=== PATIENT | female | born 1975 | race Hispanic/Latino ===

== ENCOUNTER 2017-08-09 17:08 | Emergency (ER) | payer MEDICARE, MEDICAID ==
[2017-08-09] MEDS: NS 1,000 ML IV (19:34)
[2017-08-09] MEDS: ONDANSETRON 4MG/2ML VIAL (J2405) IV (19:40)
[2017-08-09] MEDS: MORPHINE 4 MG/ML 1ML SYRINGE IV (19:41)
[2017-08-09 19:43] LABS: BASO % 0.5 % (0.0-1.0); EOS # 0.1 10^3/uL (0.0-0.50); EOS % 1.4 % (0.0-3.0); HEMATOCRIT 37.1 % (36.0-47.0); HEMOGLOBIN 12.3 g/dl (12.0-16.0); IMMATURE GRANULOCYTE % 0.2 % (0-0); LYMPH # 2.5 10^3/uL (1.5-4.5); LYMPH % 40.7 % (24.0-44.0); MEAN CORPUSCULAR HEMOGLOBIN 29.1 pg (27.0-33.0); MEAN CORPUSCULAR HGB CONC 33.2 g/dl (32.0-36.5); MEAN CORPUSCULAR VOLUME 87.9 fl (80.0-96.0); MONO # 0.5 10^3/uL (0.0-0.8); MONO % 7.6 % (0.0-5.0); NEUTROPHILS # 3.1 10^3/uL (1.8-7.7); NEUTROPHILS % 49.6 % (36.0-66.0); PLATELET COUNT, AUTOMATED 236 10^3/uL (150-450); RED BLOOD COUNT 4.22 10^6/uL (4.00-5.40); RED CELL DISTRIBUTION WIDTH 12.5 % (11.5-14.5); WHITE BLOOD COUNT 6.2 10^3/uL (4.0-10.0)
[2017-08-09 19:47] LABS: KETONE, URINE AUTO RFX NEGATIVE (NEGATIVE); LEUKOCYTE ESTERASE UR AUTO RFX NEGATIVE (NEGATIVE); MUCUS, URINE RFX SMALL (NEGATIVE); NITRITE, URINE AUTO RFX NEGATIVE (NEGATIVE); RBC, URINE AUTO RFX 1 /HPF (0-3); SQUAM EPITHELIAL CELL UR AURFX 1 /HPF (0-6); WBC, URINE AUTO RFX 0 /HPF (0-3)
[2017-08-09 20:19] LABS: ALBUMIN 4.3 GM/DL (3.2-5.2); ALBUMIN/GLOBULIN RATIO 1.05 (1.00-1.93); ALKALINE PHOSPHATASE 84 U/L (45-117); ALT/SGPT 21 U/L (12-78); ANION GAP 8 MEQ/L (8-16); AST/SGOT 19 U/L (7-37); BILIRUBIN,DIRECT 0.2 MG/DL (0.0-0.2); BILIRUBIN,TOTAL 0.9 MG/DL (0.2-1.0); BLOOD UREA NITROGEN 11 MG/DL (7-18); CALCIUM LEVEL 9.1 MG/DL (8.5-10.1); CARBON DIOXIDE LEVEL 28 MEQ/L (21-32); CHLORIDE LEVEL 105 MEQ/L (98-107); CREATININE FOR GFR 0.61 MG/DL (0.55-1.02); GLOMERULAR FILTRATION RATE > 60.0 (>58); GLUCOSE, FASTING 87 MG/DL (70-105); LIPASE 138 U/L (73-393); POTASSIUM SERUM 3.8 MEQ/L (3.5-5.1); SODIUM LEVEL 141 MEQ/L (136-145); TOTAL PROTEIN 8.4 GM/DL (6.4-8.2)
[2017-08-09] MEDS ORDERED: ISOVUE-370 76% 100ML VIAL (Q9967) As Ordered (20:22)
[2017-08-09] MEDS: BACLOFEN 10 MG TAB PO (21:05)
== END 2017-08-09 21:53 | disposition home or self-care (01) ==
LOC: M ED 17:08
DX: S39.012A Strain of muscle, fascia and tendon of lower back, initial encounter (principal); X58.XXXA Exposure to other specified factors, initial encounter; Y92.89 Other specified places as the place of occurrence of the external cause; Y93.89 Activity, other specified
CPT/HCPCS: J2405

== ENCOUNTER → 2017-08-16 | Outpatient (REF) | payer MEDICARE, MEDICAID ==
[2017-08-16 15:40] LABS: BASO % 0.5 % (0.0-1.0); EOS # 0.2 10^3/uL (0.0-0.50); EOS % 2.9 % (0.0-3.0); HEMATOCRIT 38.1 % (36.0-47.0); HEMOGLOBIN 12.6 g/dl (12.0-16.0); IMMATURE GRANULOCYTE % 0.2 % (0-0); LYMPH # 2.2 10^3/uL (1.5-4.5); LYMPH % 34.1 % (24.0-44.0); MEAN CORPUSCULAR HEMOGLOBIN 29.7 pg (27.0-33.0); MEAN CORPUSCULAR HGB CONC 33.1 g/dl (32.0-36.5); MEAN CORPUSCULAR VOLUME 89.9 fl (80.0-96.0); MONO # 0.5 10^3/uL (0.0-0.8); MONO % 7.1 % (0.0-5.0); NEUTROPHILS # 3.6 10^3/uL (1.8-7.7); NEUTROPHILS % 55.2 % (36.0-66.0); PLATELET COUNT, AUTOMATED 207 10^3/uL (150-450); RED BLOOD COUNT 4.24 10^6/uL (4.00-5.40); RED CELL DISTRIBUTION WIDTH 12.8 % (11.5-14.5); WHITE BLOOD COUNT 6.5 10^3/uL (4.0-10.0)
[2017-08-16 15:51] LABS: ALBUMIN 3.9 GM/DL (3.2-5.2); ALBUMIN/GLOBULIN RATIO 1.22 (1.00-1.93); ALKALINE PHOSPHATASE 67 U/L (45-117); ALT/SGPT 19 U/L (12-78); ANION GAP 7 MEQ/L (8-16); AST/SGOT 15 U/L (7-37); BILIRUBIN,TOTAL 0.7 MG/DL (0.2-1.0); BLOOD UREA NITROGEN 10 MG/DL (7-18); CALCIUM LEVEL 8.7 MG/DL (8.5-10.1); CARBON DIOXIDE LEVEL 30 MEQ/L (21-32); CHLORIDE LEVEL 106 MEQ/L (98-107); CPK CREATINE PHOSPHOKINASE 115 U/L (26-192); CREATININE FOR GFR 0.59 MG/DL (0.55-1.02); GLOMERULAR FILTRATION RATE > 60.0 (>58); GLUCOSE, FASTING 83 MG/DL (70-105); POTASSIUM SERUM 3.6 MEQ/L (3.5-5.1); RHEUMATOID FACTOR QUANT < 10.0 IU/ML (0-15.0); SODIUM LEVEL 143 MEQ/L (136-145); TOTAL PROTEIN 7.1 GM/DL (6.4-8.2)
[2017-08-16 15:57] LABS: VITAMIN B12 LEVEL 524 PG/ML (247-911)
[2017-08-16 15:58] LABS: FOLATE 18.5 NG/ML (>5.4)
[2017-08-16 16:17] LABS: ERYTHROCYTE SEDIMENTATION RATE 9 mm/hr (0-20)
[2017-08-19 00:06] LABS: ANTINUCLEAR ANTIBODIES DIRECT Negative (Negative); Lyme Disease IgG/IgM Antibodie <0.91 ISR (0.00-0.90); Lyme Disease IgM Ab Quantitati <0.80 index (0.00-0.79)
[2017-08-19 11:09] LABS: ALBUMIN % 57.7 % (55.8-66.1); ALPHA-1-GLOBULIN % 4.2 % (2.9-4.9); ALPHA-2-GLOBULINS 0.69 GM/DL (0.42-0.99); ALPHA-2-GLOBULINS % 9.7 % (7.1-11.8); BETA-1-GLOBULINS 0.44 GM/DL (0.28-0.60); BETA-1-GLOBULINS % 6.2 % (4.7-7.2); BETA-2-GLOBULINS % 5.6 % (3.2-6.5); GAMMA GLOBULIN % 16.6 % (11.1-18.8); GAMMA GLOBULINS 1.18 GM/DL (0.65-1.58)
== END ==
LOC: M LABDRAW1 14:40
DX: M54.2 Cervicalgia (principal)
CPT/HCPCS: 82550

== ENCOUNTER → 2017-10-25 | Outpatient (CLI) | payer MEDICARE, MEDICAID | LOC: M WHC 10:36 | DX: Z12.31 Encounter for screening mammogram for malignant neoplasm of breast (principal); Z80.3 Family history of malignant neoplasm of breast; Z12.72 Encounter for screening for malignant neoplasm of vagina; R87.5 Abnormal microbiological findings in specimens from female genital organs | CPT/HCPCS: 77067; G0123 ==

== ENCOUNTER → 2017-10-25 | Outpatient (REF) | payer MEDICARE, MEDICAID | LOC: M SFHCWAGY 10:54 | DX: Z12.72 Encounter for screening for malignant neoplasm of vagina (principal); R87.5 Abnormal microbiological findings in specimens from female genital organs | CPT/HCPCS: G0123 ==

== ENCOUNTER → 2018-04-11 | Outpatient (REF) | payer MEDICARE, MEDICAID ==
[2018-04-11 11:14] LABS: PLATELET COUNT, AUTOMATED 225 10^3/uL (150-450)
[2018-04-11 11:35] LABS: INR 0.87; PROTHROMBIN TIME 11.9 SECONDS (12.1-14.4)
[2018-04-11 11:36] LABS: PARTIAL THROMBOPLASTIN TIME 26.8 SECONDS (25.4-37.6)
== END ==
LOC: M LABDRAW1 10:28
DX: M54.5 Low back pain (principal); Z01.812 Encounter for preprocedural laboratory examination
CPT/HCPCS: 85049

== ENCOUNTER 2018-08-05 13:51 | Emergency (ER) | payer MEDICARE, MEDICAID ==
[~2018-08-05] VITALS: Ht 152.4 cm; Wt 79.1 kg
[~2018-08-05 13:51] MED LIST: BACL10TA2 PO; GABA600T4; PERC5TAB12 PO; TIZA4CAP
[2018-08-05] MEDS ORDERED: [UNRECOGNIZED DRUG - CODE] (14:03)
[2018-08-05] MEDS ORDERED: TIZANIDINE (14:03)
[2018-08-05] MEDS ORDERED: DULO1CAP2 (14:03)
[2018-08-05] MEDS ORDERED: GABA800T4 PO (14:03)
[2018-08-05] MEDS ORDERED: ONDANSETRON 4MG/2ML VIAL (J2405) IV ONE (15:15)
[2018-08-05] MEDS ORDERED: MORPHINE 4 MG/ML 1ML VIAL/SYRINGE (J2270) IV ONE (15:15)
[2018-08-05] MEDS ORDERED: NS 1,000 ML IV ONE (15:15)
--- NOTE | 2018-08-05 15:28 | REP ---
CT Head without contrast HISTORY: Headache COMPARISON: None The patient is status post midline suboccipital craniectomy. There is no intraparenchymal hemorrhage, acute infarct, mass or midline shift. The ventricular system is normal in appearance. There is no extra cerebral collection. There is no fracture. 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 The visualized sinuses are clear. IMPRESSION: There is no intracranial lesion. Electronically Signed by Taiwo Martin MD 08/05/2018 03:20 P
[2018-08-05 15:36] LABS: BASO # 0.1 10^3/uL (0.0-0.2); BASO % 0.6 % (0.0-1.0); EOS # 0.1 10^3/uL (0.0-0.50); EOS % 1.1 % (0.0-3.0); HEMATOCRIT 40.3 % (36.0-47.0); HEMOGLOBIN 13.6 g/dl (12.0-15.5); LYMPH # 2.3 10^3/uL (1.5-4.5); LYMPH % 27.4 % (24.0-44.0); MEAN CORPUSCULAR HEMOGLOBIN 30.6 pg (27.0-33.0); MEAN CORPUSCULAR HGB CONC 33.7 g/dl (32.0-36.5); MEAN CORPUSCULAR VOLUME 90.6 fl (80.0-96.0); MONO # 0.5 10^3/uL (0.0-0.8); MONO % 5.6 % (0.0-5.0); NEUTROPHILS # 5.4 10^3/uL (1.8-7.7); NEUTROPHILS % 64.9 % (36.0-66.0); PLATELET COUNT, AUTOMATED 267 10^3/uL (150-450); RED BLOOD COUNT 4.45 10^6/uL (4.00-5.40); WHITE BLOOD COUNT 8.4 10^3/uL (4.0-10.0)
[2018-08-05 16:03] LABS: ALBUMIN 4.4 GM/DL (3.2-5.2); ALT/SGPT 30 U/L (12-78); BILIRUBIN,TOTAL 0.6 MG/DL (0.2-1.0); BLOOD UREA NITROGEN 14 MG/DL (7-18); CALCIUM LEVEL 9.1 MG/DL (8.5-10.1); CARBON DIOXIDE LEVEL 23 MEQ/L (21-32); CHLORIDE LEVEL 106 MEQ/L (98-107); GLOMERULAR FILTRATION RATE > 60.0 (>58); GLUCOSE, FASTING 96 MG/DL (70-100); SODIUM LEVEL 139 MEQ/L (136-145); TOTAL PROTEIN 7.9 GM/DL (6.4-8.2)
[2018-08-05] MEDS ORDERED: diphenhydrAMINE INJ 50MG/ML VIAL (J1200) IV STA (16:22)
[2018-08-05] MEDS ORDERED: methylPREDNISolone INJ 125 MG/2 ML VIAL (J2930) IV ONE (16:30)
[2018-08-05] MEDS ORDERED: ERYTHROMYCIN OPHTH OINT OD ONE (16:30)
[2018-08-05] MEDS ORDERED: PRED20TA PO (17:20)
[2018-08-05] MEDS ORDERED: ERYTOIN8 OD (17:26)
[2018-08-05 17:27] VITALS: BP 158/94
== END 2018-08-05 17:35 | disposition home or self-care (01) ==
LOC: M ED 13:51
DX: R51 Headache (principal); H57.89 Other specified disorders of eye and adnexa; M54.9 Dorsalgia, unspecified; Z79.899 Other long term (current) drug therapy
CPT/HCPCS: 70450; 80053; 85025; 96361; 96374; 96375; 99284; J1200; J2270; J2405; J2930

== ENCOUNTER → 2019-06-04 | Outpatient (CLI) | payer MEDICARE, MEDICAID ==
[~2019-06-04] MED LIST changes: +DULO1CAP5; +ERYTOIN8 OD; +GABA800T4 PO; +PRED20TA PO; +TIZANIDINE; +[UNRECOGNIZED DRUG - CODE]
--- NOTE | 2019-06-20 01:14 | ECWPNPC ---
PATIENT NAME: DALIA JIMENEZ : 1975 GENDER: FEMALE VISIT DATE: 06/04/2019 DISCHARGE DATE: 06/04/19 1516 VISIT LOCKED DATE TIME: PHYSICIAN: TC CHUN RESOURCE: TC CHUN REASON FOR APPOINTMENT 1. BACK PAIN AND LUMBAR SPINE DISC DISEASE HISTORY OF PRESENT ILLNESS PAIN SCREENIN43 Y/O FEMALE REFERRED BY DR BAH TO EVALUATE CHRONIC NECK AND LOW BACK PAIN.CHIEF AREA OF PAIN IS RIGHT LOW BACK.DESCRIBES AN INTERMITTENT CRAMPING ACROSS LOW BACK.HAS COMPLAINTS OF GENERALIZED BACK PAIN.RATING PAIN VAS 8/10.REALLY NOT INTERESTED IN INJECTION THERAPY.HAS HAD IT IN THE PAST.DOES NOT HAVE A PRIMARY CARE PROVIDER. PATIENT HAS A COMPLAINT OF ACUTE OR CHRONIC PAIN :YES FALL RISK SCREENING: SCREENING :NO FALLS REPORTED IN THE LAST YEAR CURRENT MEDICATIONS TAKING CELEXA 20 MG TABLET 1 TABLET ORALLY ONCE A DAY TAKING IBUPROFEN 800 MG TABLET 1 TABLET WITH FOOD OR MILK NEEDED ORALLY THREE TIMES A DAY TAKING GABAPENTIN 800 MG TABLET 1 TABLET ORALLY TID, NOTES: 1200 MG TID TAKING ZANAFLEX 4 MG TABLET 1 TO 2 TABS ORALLY AT BEDTIME NEEDED TAKING INDOMETHACIN ER 75 MG CAPSULE EXTENDED RELEASE 1 CAPSULE WITH FOOD OR MILK ORALLY ONCE A DAY NEEDED FOR MIGRAINES TAKING MIGRANAL 4 MG/ML SOLUTION NASALLY DAILY NEEDED TAKING BOTOX 200 UNIT SOLUTION RECONSTITUTED INJECTION NOT-TAKING NEURONTIN 800 MG TABLET 1 TABLET ORALLY FOUR TIMES DAILY NOT-TAKING TRAMADOL HCL 50 MG TABLET 1 TABLET NEEDED ORALLY EVERY 4 HOURS NEEDED NOT-TAKING NERVE BLOCK TRAY NOT-TAKING VITAMIN C 500 MG CAPSULE ORALLY , NOTES: OCC MEDICATION LIST REVIEWED AND RECONCILED WITH THE PATIENT PAST MEDICAL HISTORY MIGRAINES ARNOLD CHIARI MALFORMATION SEES NEURO ACL INJURY AND FX TIBIA 2018 4TH AND 5TH DIGITS LEFT HAND CRUSHING INJURY ANXIETY CHRONIC NECK & BACK PAIN LEFT ELBOW FRACTURE ALLERGIES N.K.D.A. SURGICAL HISTORY ARNOLD CHIARI DECOMPRESSION ORIF HAND SURGERY AFTER CRUSH INJURY TUBAL LIGATION HYSTERECTOMY LEFT KNEE SURGERY FAMILY HISTORY FATHER: ALIVE MOTHER: ALIVE, DIAGNOSED WITH HYPERTENSION SIBLINGS: ALIVE, HYPERTENSION 1 BROTHER(S) . 5DAUGHTER(S) - HEALTHY. MOTHER - ASTHMA1 DAUGHTER - BIPOLAR DEPRESSION. SOCIAL HISTORY GENERAL: TOBACCO USE ARE YOU A:NONSMOKER OTHERS AT HOME: 2 DAUGHTERS. HOUSING: RENTS HOUSE. EDUCATION LEVEL OF EDUCATION:HIGH SCHOOL DIET: REGULAR. LANGUAGE LANGUAGES SPOKEN:GIBRALTARIAN RECREATIONAL DRUG USE DRUG USE?NO EXERCISE: GOES TO GYM FAIRLY REGULARLY. LEARNING BARRIERS / SPECIAL NEEDS CHANGE FROM LAST VISIT?NO BARRIERS TO LEARNING?NO HEARING IMPAIRED?NO VISION IMPAIRED?YES :CORRECTIVE LENSES COGNITIVELY IMPAIRED?NO READINESS TO LEARN?YES LEARNING PREFERENCES?NO LEARNING CAPABILITIES PRESENT?YES EMOTIONAL BARRIERS?NO SPECIAL DEVICES?NO PRIVATE TUTORS AND TEACHERS NEEDED?NO PAIN CLINIC PFS, CLERGY, PUBLIC HEALTH REFERRALS HAS THE PATIENT BEEN EDUCATED REGARDING HIS/HER PLAN OF CARE?YES HAS THE PATIENT BEEN EDUCATED REGARDING PAIN, THE RISK FOR PAIN, THE IMPORTANCE OF EFFECTIVE PAIN MANAGEMENT, AND THE PAIN ASSESSMENT PROCESS?YES LATEX QUESTIONNAIRE LATEX ALLERGY : HAVE YOU EVER DEVELOPED ANY TYPE OF REACTION AFTER HANDLING LATEX PRODUCTS SUCH RUBBER GLOVES, CONDOMS, DIAPHRAGMS, BALLOONS, SOCKS, OR UNDERWEAR?NO LATEX ALLERGY : HAVE YOU EVER DEVELOPED ANY TYPE OF REACTION DURING OR AFTER DENTAL APPOINTMENT, VAGINAL/RECTAL EXAMINATION, SURGICAL PROCEDURE, OR ANY OTHER EXPOSURE?NO LATEX RISK : HAVE YOU EVER HAD ANY DIFFICULTY BREATHING OR HIVES AFTER EATING OR HANDLING ANY FRUITS, OR VEGETABLES; SUCH KIWI, BANANAS, STONE FRUITS, OR CHESTNUTSNO LATEX RISK : DO YOU HAVE A PREVIOUS PERSONAL HISTORY OF MORE THAN NINE SURGERIES, SPINA BIFIDA, OR REPEATED CATHERIZATIONS? NO LATEX RISK : ARE YOU FREQUENTLY EXPOSED TO LATEX PRODUCTS IN YOUR OCCUPATION?NO DATE ASKED : 06/04/2019 CAFFEINE CAFFEINE USE?YES COFFEE DAILY ADVANCE DIRECTIVE ADVANCE DIRECTIVE DISCUSSED WITH PATIENT:YES PATIENT HAS NO ADVANCED DIRECTIVES AND DECLINES INFORMATIN ON HCP AT THIS TIME. MARITAL STATUS: SINGLE. ALCOHOL SCREENING DID YOU HAVE A DRINK CONTAINING ALCOHOL IN THE PAST YEAR?NO POINTS0 INTERPRETATIONNEGATIVE REVIEWED WITH PATIENT 06/04/19 1417 JS. HOSPITALIZATION/MAJOR DIAGNOSTIC PROCEDURE SURGERY RELATED REVIEW OF SYSTEMS REVIEWED BY: PROVIDER: TC WHITE . CONSTITUTIONAL: ANY CHANGE IN YOUR MEDICAL CONDITION? NO . CHILLS NO . FEVER NO . INFECTION: DO YOU HAVE NEW INFECTIONS? NO . DO YOU HAVE HISTORY OF MRSA? NO . MUSCULOSKELETAL: ANY NEW PATTERNS OF PAIN OR NUMBNESS? YES, STATES PAIN IS SPREADING AND HAS BEEN WORSENING . SYTEMIC LUPUS NO . GASTROENTEROLOGY: ANY NEW CHANGE IN BOWEL CONTROL? NO . BARRETTS ESOPHAGUS NO . CIRRHOSIS NO . HEPATITIS NO . LIVER FAILURE NO . ACID REFLUX NO . UNEXPLAINED WEIGHT LOSS NO . GENITOURINARY: ANY NEW CHANGE IN BLADDER CONTROL? YES, STATES OCCASSIONAL STRESS INCONTINENCE . IS THERE A CHANCE YOU COULD BE ? NO . HEMATOLOGY/LYMPH: DO YOU TAKE ANY BLOOD THINNERS? (FOR EXAMPLE- COUMADIN, PLAVIX, AGGRENOX, PLATEL, PRADAXA, OR XARELTO) NO . WHEN WAS YOUR LAST DOSE? DATE: TIME: . LOW PLATELET COUNT NO . SICKLE CELL DISEASE NO . VON WILLIEBRANDS NO . FACTOR V LEIDEN NO . THALLASEMIA NO . ANEMIA NO . EASY BRUISING SPONTANEOUS . NEUROLOGY: HAVE YOU FALLEN IN THE PAST 12 MONTHS? NO . ANY NEW EXTREMITY NUMBNESS OR WEAKNESS? NO . HEAD INJURY NO . DEMENTIA NO . CEREBRAL PALSY NO . MULTIPLE SCLEROSIS NO . DIZZINESS INTERMITTENT, SENSATION OF ROOM SPINNING, STATES BEFORE MIGRAINES . HEADACHE ADMITS, FREQUENT , ASSOCIATED WITH NAUSEA, ASSOCIATED WITH PHOTOPHOBIA . STROKES NO . VERTIGO NO . CARDIOLOGY: DO YOU HAVE A PACEMAKER OR DEFIBRILLATOR? NO . ANGINA NO . HEART ATTACK NO . HEART SURGERY NO . CONGESTIVE HEART FAILURE/FLUID OVERLOAD NO . CHEST PAIN NO . HIGH BLOOD PRESSURE NO . IRREGULAR HEART BEAT NO . RESPIRATORY: HAVE YOU BEEN SICK IN THE PAST WEEK? NO . FEVER NO . FLU LIKE SYMPTOMS? NO . CPAP NO . BYPAP NO . ASTHMA NO . EMPHYSEMA NO . CHRONIC LUNG DISEASES NO . SHORTNESS OF BREATH ON EXERTION NO . COUGH NO . SNORING NO . INTEGUMENTARY: DO YOU HAVE ANY RASHES OR OPEN SORES? NO . ALLERGIC/IMMUNO: ARE YOU ALLERGIC TO IV DYE? NO . ANY NEW ALLERGIES? NO . PSYCHIATRIC: DO YOU HAVE THOUGHTS OF HURTING YOURSELF OR SOMEONE ELSE? NO . ARE YOU ABUSED, NEGLECTED, OR IN AN UNSAFE ENVIRONMENT? NO . ENDOCRINOLOGY: ARE YOU DIABETIC? NO . THYROID DISORDER NO . OTHER: DO YOU NEED ANY PRESCRIPTIONS? YES, WOULD LIKE SOMETHING FOR PAIN . IF YES, PLEASE LIST: ____ . ANY NEW PROBLEMS WITH YOUR MEDICATIONS? NO . WHEN DID YOU LAST EAT? ____ . WHEN DID YOU LAST DRINK? ____ . WHAT DID YOU LAST DRINK? ____ . NAME OF PERSON DRIVING YOU HOME? ____ . DO YOU HAVE ANY OTHER QUESTIONS OR CONCERNS NO . VITAL SIGNS WT 195.2 LBS, HT 64 IN, BMI 33.50 INDEX, BP 140/83 MM HG, HR 81 /MIN, RR 18 /MIN, TEMP 96.7 F, OXYGEN SAT % 99%, SAFE IN ENV? (Y/N) YES, NA INITIALS VT 13:52, REVIEWED BY: SIVAKUMAR. EXAMINATION GENERAL EXAMINATION: GENERAL AWAKE,ALERT ,PLEASANT . PSYCH AFFECT NORMAL . NECK: TRACHEA MIDLINE. NO CERVICAL OR SUPRACLAVICULAR LYMPHADENOPATHY NOTED. LUNGS: LUNG SR ARE CLEAR TO AUSCULTATION BILATERALLY. GOOD MOVEMENT OF AIR . HEART: S1, S2 IN A REGULAR RATE AND RHYTHM. NO SIGNIFICANT MURMURS, RUBS OR GALLOPS NOTED . ABDOMEN: SOFT/NONTENDER. MUSCULOSKELETAL: MUSCLE STRENGTH TESTING 5/5 BILATERAL UPPER/LOWER EXTREMITIES. LUMBAR SACRAL SPINE PALPATION: + FOR PAIN OVER L/S SPINE. +FOR PAIN OVER L/S PARASPINALS. SPECIFIC RIGHT SIJ TENDERNESS. CERVICAL NEGATIVE FOR PAIN WITH PALPATION OF CERVICAL SPINE. NEGATIVE FOR PAIN WITH PALPATION OF CERVICAL PARASPINALS. NEGATIVE FOR PAIN WITH PALPATION OF TRAPEZIUS BILAT. SKIN: NO RASH OR SKIN LESIONS. NEUROLOGIC EXAM: CN'S NORMAL TESTED , DTRS 1-2+ IN ALL 4 EXTREMITIES. DIAGNOSTIC TESTS REVIEWED MRI L/S SPINE-04/2019 MRI C-SPINE-04/2019. MULTIPLE AREAS OF TENDER SPOTS OVER THORACIC AND LUMBAR PARASPINALS INDICATIVE OF FIBROMYALGIA. ASSESSMENTS SACROILIITIS - M46.1 (PRIMARY) TREATMENT SACROILIITIS NOTES: DISCUSSED PT AND SACROILLIAC JOINT INJECTIONS.ALSO DISCUSSED [facility] [facility].SHE WILL MAKE APPOINTMENT WITH PRIMARY CARE AND DISCUSS THESE OPTIONS.SHE REALLY IS NOT INTERSETED IN INJECTION THERAPY TO TREAT HER PAIN AT THIS TIME BUT IS ENCOURAGED TO CALL FOR A F/U APPOINTMENT IF SHE CHANGES HER MIND REGARDING INJECTIONS. PROCEDURE CODES FA211 ESTABILISHED PATIENT [facility] CHARGE DISPOSITION & COMMUNICATION FOLLOW UP NO F/U NECESSARY ELECTRONICALLY SIGNED BY CINDY AYON ON 06/19/2019 AT 08:46 AM EST DISCLAIMER : THIS IS A VISIT SUMMARY EXTRACTED FROM THE [employer] CHART. IT IS NOT A COPY OF THE [employer] PROGRESS NOTE. ROHIT
== END ==
LOC: M PAIN 13:30
PROVIDERS: ATTEND Nurse Practitioner Family
DX: M46.1 Sacroiliitis, not elsewhere classified (principal); G89.29 Other chronic pain; G43.909 Migraine, unspecified, not intractable, without status migrainosus; Z86.59 Personal history of other mental and behavioral disorders; Z79.899 Other long term (current) drug therapy

== ENCOUNTER 2019-08-25 19:18 | Emergency (ER) | payer MEDICARE, MEDICAID ==
[~2019-08-25] VITALS: Ht 162.6 cm; Wt 90.3 kg
[2019-08-25] MEDS ORDERED: TIZA4TAB4 PO (19:32)
[2019-08-25] MEDS ORDERED: PROP10TA56 PO (19:32)
[2019-08-25] MEDS ORDERED: CITA20TA6 PO (19:32)
[2019-08-25] MEDS ORDERED: INDO75CA PO (19:32)
[2019-08-25 20:23] LABS: BASO # 0.1 10^3/uL (0.0-0.2); BASO % 0.5 % (0.0-1.0); EOS # 0.1 10^3/uL (0.0-0.5); EOS % 1.1 % (0.0-3.0); HEMATOCRIT 42.7 % (36.0-47.0); HEMOGLOBIN 14.2 g/dl (12.0-15.5); LYMPH # 3.2 10^3/uL (1.5-5.0); LYMPH % 28.9 % (24.0-44.0); MEAN CORPUSCULAR HEMOGLOBIN 29.6 pg (27.0-33.0); MEAN CORPUSCULAR HGB CONC 33.3 g/dl (32.0-36.5); MONO # 0.9 10^3/uL (0.0-0.8); MONO % 8.2 % (0.0-5.0); NEUTROPHILS # 6.7 10^3/uL (1.5-8.5); NEUTROPHILS % 60.8 % (36.0-66.0); PLATELET COUNT, AUTOMATED 255 10^3/uL (150-450); WHITE BLOOD COUNT 11.1 10^3/uL (4.0-10.0)
[2019-08-25 20:32] LABS: BLOOD UREA NITROGEN 14 MG/DL (7-18); CALCIUM LEVEL 8.3 MG/DL (8.5-10.1); CARBON DIOXIDE LEVEL 24 MEQ/L (21-32); CHLORIDE LEVEL 110 MEQ/L (98-107); CK-MB VALUE MASS 1.4 NG/ML (<3.6); CPK CREATINE PHOSPHOKINASE 87 U/L (26-192); CREATININE FOR GFR 0.52 MG/DL (0.55-1.30); GLOMERULAR FILTRATION RATE > 60.0 (>58); GLUCOSE, FASTING 103 MG/DL (70-100); MB/CK RELATIVE INDEX 1.61 (< OR =4); POTASSIUM SERUM 3.1 MEQ/L (3.5-5.1); SODIUM LEVEL 140 MEQ/L (136-145); TROPONIN I < 0.02 NG/ML (< 0.10)
[2019-08-25] MEDS ORDERED: PANTOPRAZOLE 40MG INJ (PROTONIX) (C9113) IV ONE (21:45)
[2019-08-25] MEDS ORDERED: POTASSIUM CHLORIDE 10 MEQ SR TABLET PO ONE (21:45)
[2019-08-26 00:49] LABS: CK-MB VALUE MASS 1.2 NG/ML (<3.6); CPK CREATINE PHOSPHOKINASE 87 U/L (26-192); MB/CK RELATIVE INDEX 1.38 (< OR =4); TROPONIN I < 0.02 NG/ML (< 0.10)
[2019-08-26] MEDS ORDERED: PROT1TAB2 PO (01:19)
[2019-08-26 01:33] VITALS: BP 121/80
--- NOTE | 2019-08-26 06:31 | ECGEPIP ---
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
--- NOTE | 2019-08-26 06:37 | ECGEPIP ---
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
--- NOTE | 2019-08-26 09:27 | REP ---
AP PORTABLE CHEST: 08/25/2019. Clinical history: Chest pain. Findings: No prior studies. The lungs are well inflated and without infiltrate, effusion, atelectasis or mass. CP angles sharply defined as are the diaphragms. No pneumothorax. The heart, mediastinal and hilar contours are normal. Lung coleman are clear. Aorta and airway are intact. Bony thorax without acute finding. No free air under the diaphragm. Impression: 1. Negative AP portable chest. Electronically Signed by Nilesh Cross MD 08/26/2019 08:17 P
--- NOTE | 2019-08-30 00:41 | ECGEPIP ---
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
== END 2019-08-26 01:37 | disposition home or self-care (01) ==
LOC: M ED 19:18
DX: R07.9 Chest pain, unspecified (principal); Z79.899 Other long term (current) drug therapy
CPT/HCPCS: 71045; 80048; 82550; 82553; 84484; 85025; 93005; 93041; 94760; 96374; 99285; C9113

== ENCOUNTER → 2019-09-26 | Outpatient (REF) | payer MEDICARE, MEDICAID ==
[~2019-09-26] MED LIST changes: +CITA20TA6 PO; +INDO75CA PO; +PROP10TA56 PO; +PROT1TAB2 PO; +TIZA4TAB4 PO
[2019-09-26 13:34] LABS: APPEARANCE, URINE HAZY (CLEAR); BACTERIA, URINE AUTO NEGATIVE (NEGATIVE); BILIRUBIN, URINE AUTO NEGATIVE (NEGATIVE); BLOOD, URINE BLOOD NEGATIVE (NEGATIVE); COLOR, URINE YELLOW (YELLOW); GLUCOSE, URINE (UA) AUTO NEGATIVE (NEGATIVE); KETONE, URINE AUTO NEGATIVE (NEGATIVE); LEUKOCYTE ESTERASE, URINE AUTO NEGATIVE (NEGATIVE); NITRITE, URINE AUTO NEGATIVE (NEGATIVE); PROTEIN, URINE AUTO NEGATIVE (NEGATIVE); RBC, URINE AUTO 0 /HPF (0-3); SPECIFIC GRAVITY URINE AUTO 1.008 (1.002-1.035); SQUAMOUS EPITHELIAL CELL UR AU 3 /HPF (0-6); UROBILINOGEN, URINE AUTO 0.2 mg/dL (0.0-2.0); WBC, URINE AUTO 1 /HPF (0-3)
== END ==
LOC: M LAB REF 12:28
PROVIDERS: ATTEND Physician Assistant
DX: N39.0 Urinary tract infection, site not specified (principal)

== ENCOUNTER → 2019-09-27 | Outpatient (CLI) | payer MEDICARE, MEDICAID ==
--- NOTE | 2019-09-27 16:56 | REP ---
Supine abdomen single AP view: Comparison is the abdomen/pelvis CT dated 08/09/2017. The bowel gas pattern is normal. There are no renal or ureteral calcifications. There are too two tiny calcifications inferiorly in the pelvis on the left from the comparison CT. These are phleboliths. The skeletal structures and soft tissues are otherwise unremarkable. Impression: There are two pelvic calcifications inferiorly on the left than on the comparison CT. These are phleboliths. No other calcifications are identified. The bowel gas pattern is normal. Electronically Signed by Benigno Harris MD 09/27/2019 04:48 P
== END ==
LOC: M RAD 16:20
PROVIDERS: ATTEND Physician Assistant
DX: N20.1 Calculus of ureter (principal); N23 Unspecified renal colic

== ENCOUNTER 2020-01-12 18:20 | Emergency (ER) | payer MEDICARE, MEDICAID ==
[~2020-01-12] VITALS: Ht 162.6 cm; Wt 88.2 kg
[2020-01-12 19:42] VITALS: BP 117/75
--- NOTE | 2020-01-13 09:53 | REP ---
Four views left ankle: 01/12/2020. Indication: Left ankle pain following injury. Comparison: None. Findings: There is no acute fracture, subluxation or dislocation. Soft tissue edema is noted overlying the distal left fibula. No lytic or blastic lesions are present. Impression: No acute fracture. Electronically Signed by Lawson Cordon DO 01/13/2020 09:45 A
== END 2020-01-12 19:43 | disposition home or self-care (01) ==
LOC: M ED 18:20
DX: S93.402A Sprain of unspecified ligament of left ankle, initial encounter (principal); X50.9XXA Other and unspecified overexertion or strenuous movements or postures, initial encounter; Y92.018 Other place in single-family (private) house as the place of occurrence of the external cause; Z79.899 Other long term (current) drug therapy; Z87.891 Personal history of nicotine dependence

== ENCOUNTER → 2020-03-18 | Outpatient (CLI) | payer MEDICARE, MEDICAID ==
[~2020-03-18] MED LIST changes: -INDO75CA PO; +INDO75CA10 PO
--- NOTE | 2020-04-25 13:32 | REP ---
RIGHT FIFTH FINGER SERIES: 4-VIEWS HISTORY: Hyperextension injury right small finger. FINDINGS: Five views of the right small finger demonstrate normal bones, joints, and soft tissues. No fracture or subluxation seen. IMPRESSION: No fracture noted. MTDD
== END ==
LOC: M WUC 16:46
PROVIDERS: ATTEND Nurse Practitioner Family
DX: M79.644 Pain in right finger(s) (principal)

== ENCOUNTER → 2020-06-24 | Outpatient (CLI) | payer MEDICARE, MEDICAID | LOC: M LABSMTC 11:55 | PROVIDERS: ATTEND Family Medicine | DX: Z11.59 Encounter for screening for other viral diseases (principal) ==

== ENCOUNTER 2020-07-11 15:35 | Emergency (ER) | payer MEDICARE, MEDICAID ==
[~2020-07-11] VITALS: Ht 162.6 cm; Wt 89.6 kg
[2020-07-11 15:37] VITALS: BP 135/81
[2020-07-11] MEDS ORDERED: TOPI50TA9 (15:47)
[2020-07-11] MEDS ORDERED: MIGR4SPR NARES (15:47)
[2020-07-11] MEDS ORDERED: NS 1,000 ML IV SCH (16:09)
[2020-07-11] MEDS ORDERED: METOCLOPRAMIDE INJ 10MG/2ML VIAL (J2765 PER 1) IV ONE (16:15)
[2020-07-11 17:13] LABS: BASO % 0.3 % (0.0-1.0); EOS # 0.2 10^3/uL (0.0-0.5); EOS % 2.3 % (0.0-3.0); HEMATOCRIT 42.1 % (36.0-47.0); HEMOGLOBIN 13.6 g/dl (12.0-15.5); LYMPH # 2.2 10^3/uL (1.5-5.0); LYMPH % 31.5 % (24.0-44.0); MEAN CORPUSCULAR HEMOGLOBIN 29.6 pg (27.0-33.0); MEAN CORPUSCULAR HGB CONC 32.3 g/dl (32.0-36.5); MEAN CORPUSCULAR VOLUME 91.5 fl (80.0-96.0); MONO # 0.5 10^3/uL (0.0-0.8); MONO % 7.2 % (0.0-5.0); NEUTROPHILS # 4.1 10^3/uL (1.5-8.5); NEUTROPHILS % 58.4 % (36.0-66.0); PLATELET COUNT, AUTOMATED 205 10^3/uL (150-450)
[2020-07-11 17:24] LABS: BLOOD UREA NITROGEN 9 MG/DL (7-18); CALCIUM LEVEL 8.4 MG/DL (8.5-10.1); CARBON DIOXIDE LEVEL 27 MEQ/L (21-32); CHLORIDE LEVEL 109 MEQ/L (98-107); GLOMERULAR FILTRATION RATE > 60.0 (>58); GLUCOSE, FASTING 115 MG/DL (70-100); POTASSIUM SERUM 3.4 MEQ/L (3.5-5.1); SODIUM LEVEL 140 MEQ/L (136-145)
[2020-07-11 17:28] LABS: HCG, SERUM QUALITATIVE NEGATIVE (NEGATIVE)
--- NOTE | 2020-07-11 17:56 | REPVR ---
PROCEDURE INFORMATION: Exam: CT Head Without Contrast Exam date and time: 07/11/2020 5:34 PM Age: 44 years old Clinical indication: Pain; Headache not specified; Additional info: Headache, vomiting TECHNIQUE: Imaging protocol: Computed tomography of the head without contrast. Radiation optimization: All CT scans at this facility use at least one of these dose optimization techniques: automated exposure control; mA and/or kV adjustment per patient size (includes targeted exams where dose is matched to clinical indication); or iterative reconstruction. COMPARISON: CT Head without contrast 08/05/2018 3:04 PM FINDINGS: Brain: No CT evidence of acute intracranial hemorrhage or acute territorial infarction. No significant mass effect or midline shift. Basal cisterns patent. Cerebral ventricles: Normal in size and configuration. Bones/joints: No acute osseous abnormality. Paranasal sinuses: Unremarkable. No fluid levels. Mastoid air cells: Grossly unremarkable. Soft tissues: Grossly unremarkable. IMPRESSION: No CT evidence of acute intracranial pathology. Electronically signed by: Adriano Gramajo On 07/11/2020 17:55:50 PM
[2020-07-11] MEDS ORDERED: POTASSIUM CHLORIDE 10 MEQ SR TABLET PO ONE (19:00)
== END 2020-07-11 19:37 | disposition home or self-care (01) ==
LOC: M ED 15:35
DX: R51.9 Headache, unspecified (principal); I10 Essential (primary) hypertension; Q07.00 Arnold-Chiari syndrome without spina bifida or hydrocephalus; Z79.899 Other long term (current) drug therapy
CPT/HCPCS: 70450; 80048; 84703; 85025; 96361; 96374; 99284; J2765

== ENCOUNTER 2020-08-27 09:16 | Outpatient (CLI) | payer MEDICARE, MEDICAID ==
[~2020-08-27] VITALS: Ht 162.6 cm; Wt 88.1 kg
[~2020-08-27 09:16] MED LIST changes: +MAG SULF 1GM/100ML (MAG RUN) SINGLE DOSE IV ONE; +MIGR4SPR NARES; +TOPI50TA9; +VALPROATE SOD INJ 1,000 MG in D5W 50 ML IV ONE; +methylPREDNISolone 125MG 2ML VIAL IV ONE
[2020-08-27 09:20] VITALS: BP 134/86
[2020-08-27] MEDS ORDERED: NEUR600T PO (09:49)
[2020-08-27] MEDS ORDERED: IBUP200C33 PO (09:52)
[2020-08-27 11:05] VITALS: BP 112/78
[2020-08-27 12:30] VITALS: BP 117/72
== END 2020-08-27 12:30 | disposition home or self-care (01) ==
LOC: M INFU 09:16
PROVIDERS: ATTEND Psychiatry & Neurology Neurology
DX: G43.719 Chronic migraine without aura, intractable, without status migrainosus (principal)
CPT/HCPCS: 96365; 96367; J2930; J3475

== ENCOUNTER 2020-09-24 13:20 | Outpatient (CLI) | payer MEDICARE, MEDICAID ==
[~2020-09-24] VITALS: Ht 162.6 cm; Wt 86.3 kg
[~2020-09-24 13:20] MED LIST changes: +IBUP200C33 PO; +NEUR600T PO
[2020-09-24 13:35] VITALS: BP 120/91
[2020-09-24 14:44] VITALS: BP 116/68
[2020-09-24 15:40] VITALS: BP 119/73
== END 2020-09-24 15:40 | disposition home or self-care (01) ==
LOC: M INFU 13:20
PROVIDERS: ATTEND Psychiatry & Neurology Neurology
DX: G43.719 Chronic migraine without aura, intractable, without status migrainosus (principal)
CPT/HCPCS: 96365; 96367; J2930; J3475

== ENCOUNTER 2020-10-22 12:55 | Outpatient (CLI) | payer MEDICARE, MEDICAID ==
[~2020-10-22] VITALS: Ht 162.6 cm; Wt 87.2 kg
[~2020-10-22 12:55] MED LIST changes: -MAG SULF 1GM/100ML (MAG RUN) SINGLE DOSE IV ONE; -VALPROATE SOD INJ 1,000 MG in D5W 50 ML IV ONE; -methylPREDNISolone 125MG 2ML VIAL IV ONE
[2020-10-22] MEDS ORDERED: VALPROATE SOD INJ 1,000 MG in D5W 50 ML IV ONE (13:00)
[2020-10-22] MEDS ORDERED: MAG SULF 1GM/100ML (MAG RUN) SINGLE DOSE IV ONE ×2 (13:00)
[2020-10-22] MEDS ORDERED: methylPREDNISolone 125MG 2ML VIAL IV ONE (13:00)
[2020-10-22 13:05] VITALS: BP 114/71
[2020-10-22 15:35] VITALS: BP 138/76
== END 2020-10-22 15:35 | disposition home or self-care (01) ==
LOC: M INFU 12:55
PROVIDERS: ATTEND Psychiatry & Neurology Neurology
DX: G43.719 Chronic migraine without aura, intractable, without status migrainosus (principal)
CPT/HCPCS: 96365; 96367; 96375; J2930; J3475

== ENCOUNTER 2020-11-19 13:06 | Outpatient (CLI) | payer MEDICARE, MEDICAID ==
[~2020-11-19] VITALS: Ht 162.6 cm; Wt 87.2 kg
[~2020-11-19 13:06] MED LIST changes: +MAG SULF 1GM/100ML (MAG RUN) SINGLE DOSE IV ONE; +VALPROATE SOD INJ 1,000 MG in D5W 50 ML IV ONE; +methylPREDNISolone 125MG 2ML VIAL IV ONE
[2020-11-19 13:36] VITALS: BP 142/96
[2020-11-19 15:38] VITALS: BP 142/97
== END 2020-11-19 15:40 | disposition home or self-care (01) ==
LOC: M INFU 13:06
PROVIDERS: ATTEND Psychiatry & Neurology Neurology
DX: G43.719 Chronic migraine without aura, intractable, without status migrainosus (principal)
CPT/HCPCS: 96365; 96367; J2930; J3475

== ENCOUNTER 2020-12-17 13:36 | Outpatient (CLI) | payer MEDICARE, MEDICAID ==
[~2020-12-17] VITALS: Ht 162.6 cm; Wt 86.3 kg
[2020-12-17 13:40] VITALS: BP 139/90
[2020-12-17 15:00] VITALS: BP 152/89
[2020-12-17 15:55] VITALS: BP 138/72
[2020-12-17 16:40] VITALS: BP 148/82
== END 2020-12-17 16:40 | disposition home or self-care (01) ==
LOC: M INFU 13:36
PROVIDERS: ATTEND Psychiatry & Neurology Neurology
DX: G43.719 Chronic migraine without aura, intractable, without status migrainosus (principal)
CPT/HCPCS: 96365; 96367; 96375; J2930; J3475

== ENCOUNTER → 2021-01-21 | Outpatient (CLI) | payer MEDICARE, MEDICAID ==
[~2021-01-21] MED LIST changes: -MAG SULF 1GM/100ML (MAG RUN) SINGLE DOSE IV ONE; -VALPROATE SOD INJ 1,000 MG in D5W 50 ML IV ONE; -methylPREDNISolone 125MG 2ML VIAL IV ONE
--- NOTE | 2021-01-23 01:27 | ECWPNPC ---
PATIENT NAME: DALIA JIMENEZ : 1975 GENDER: FEMALE VISIT DATE: 01/21/2021 DISCHARGE DATE: 01/21/21 1346 VISIT LOCKED DATE TIME: PHYSICIAN: MARIA G ALMANZA RESOURCE: MARIA G ALMANZA REASON FOR APPOINTMENT 1. BOTOX FOR MIGRAINES HISTORY OF PRESENT ILLNESS GENERAL: HPI 45-YEAR-OLD FEMALE IN FOR INITIAL PAIN CONSULT REGARDING BOTOX FOR HER MIGRAINE HEADACHES. PATIENT HAS RECEIVED BOTOX INJECTIONS IN THE PAST WITH GOOD RELIEF OF HER HEADACHES. WHEN ASKED SHE ADMITS TO GREATER THAN 15 MIGRAINES PER MONTH FURTHER STATING THAT THEY SEVERELY IMPACT HER LIFE.. -. FALL RISK SCREENING: SCREENING : NO FALLS REPORTED IN THE LAST YEAR. PAIN SCREENING: PATIENT HAS A COMPLAINT OF ACUTE OR CHRONIC PAIN :YES LOCATION OF PAIN:HEAD, NECK INTENSITY OF PAIN (SCALE OF 1 TO 10):1 GETS HIGH A 10 DURING A MIGRAINE. NECK PAIN IS A 9 WHAT DOES YOUR PAIN FEEL LIKE:ACHING, BURNING, OTHER STINGING DURATION:INTERMITTENT, AWAKENS FROM SLEEP PAIN IS INCREASED BY:ACTIVITIES, OTHERS CERTAIN SMELLS, DIRECT SUNLIGHT PAIN IS DECREASED BY:OTHERS NOTHING HELPS THE PAIN. NURSING NOTE: -. PAIN CENTER INTAKE QUESTIONS: DO YOU HAVE A HISTORY OF MRSA? :NO DO YOU TAKE A BLOOD THINNERS? :NO DO YOU HAVE ANY BLEEDING DISORDERS? :NO ANY NEW NUMBNESS OR WEAKNESS IN YOUR LEGS OR ARMS? :NO ANY PACEMAKER,DEFIBRILLATOR, OR DORSAL COLUMN STIMULATOR? :NO DO YOU HAVE ANY RASHES OR OPEN SORES? :NO ARE YOU ALLERGIC TO IV DYE? :NO ARE YOU DIABETIC? :NO ANY NEW PROBLEMS WITH YOUR MEDICATIONS? :NO HAVE YOU RECEIVED A VACCINE IN THE PAST 30 DAYS? :NO DO YOU PLAN TO RECEIVE A VACCINE IN THE NEXT 21 DAYS? :NO DO YOU NEED ANY PRESCRIPTION? :NO DO YOU TAKE ANY IMMUNOSUPPRESSIVE MEDICATIONS? :YES IV INFUSIONS FOR MIGRAINES MONTHLY. PATIENT DOES NOT KNOW THE NAMES OF THE MEDICATION, ONLY THAT IT IS STEROIDS. IS THERE A CHANCE YOU COULD BE ? :NO ARE YOU BREAST FEEDING? :NO CURRENT MEDICATIONS TAKING IBUPROFEN 800 MG TABLET 1 TABLET WITH FOOD OR MILK NEEDED ORALLY THREE TIMES A DAY TAKING GABAPENTIN 600 MG TABLET 1 TABLET ORALLY TID TAKING ZANAFLEX 4 MG TABLET 1 TO 2 TABS ORALLY AT BEDTIME NEEDED TAKING INDOMETHACIN ER 75 MG CAPSULE EXTENDED RELEASE 1 CAPSULE WITH FOOD OR MILK ORALLY ONCE A DAY NEEDED FOR MIGRAINES TAKING MIGRANAL 4 MG/ML SOLUTION NASALLY DAILY NEEDED TAKING BOTOX 200 UNIT SOLUTION RECONSTITUTED INJECTION TAKING CITALOPRAM HYDROBROMIDE 20 MG TABLET 1 TABLET ORALLY ONCE A DAY TAKING ZOFRAN 4 MG TABLET 1 TABLET ORALLY ONCE A DAY NOT-TAKING CELEXA 20 MG TABLET 1 TABLET ORALLY ONCE A DAY NOT-TAKING NEURONTIN 800 MG TABLET 1 TABLET ORALLY FOUR TIMES DAILY NOT-TAKING TRAMADOL HCL 50 MG TABLET 1 TABLET NEEDED ORALLY EVERY 4 HOURS NEEDED NOT-TAKING NERVE BLOCK TRAY NOT-TAKING VITAMIN C 500 MG CAPSULE ORALLY , NOTES: OCC MEDICATION LIST REVIEWED AND RECONCILED WITH THE PATIENT PAST MEDICAL HISTORY MIGRAINES ARNOLD CHIARI MALFORMATION SEES NEURO ACL INJURY AND FX TIBIA 2018 4TH AND 5TH DIGITS LEFT HAND CRUSHING INJURY ANXIETY CHRONIC NECK & BACK PAIN LEFT ELBOW FRACTURE ALLERGIES N.K.D.A. SURGICAL HISTORY ARNOLD CHIARI DECOMPRESSION ORIF HAND SURGERY AFTER CRUSH INJURY TUBAL LIGATION HYSTERECTOMY LEFT KNEE SURGERY FAMILY HISTORY FATHER: ALIVE MOTHER: ALIVE, DIAGNOSED WITH HYPERTENSION SIBLINGS: ALIVE, HYPERTENSION 1 BROTHER(S) . 5DAUGHTER(S) - HEALTHY. MOTHER - ASTHMA1 DAUGHTER - BIPOLAR DEPRESSION. SOCIAL HISTORY GENERAL: TOBACCO USE ARE YOU A:NONSMOKER LATEX QUESTIONNAIRE LATEX ALLERGY : HAVE YOU EVER DEVELOPED ANY TYPE OF REACTION AFTER HANDLING LATEX PRODUCTS SUCH RUBBER GLOVES, CONDOMS, DIAPHRAGMS, BALLOONS, SOCKS, OR UNDERWEAR?NO LATEX ALLERGY : HAVE YOU EVER DEVELOPED ANY TYPE OF REACTION DURING OR AFTER DENTAL APPOINTMENT, VAGINAL/RECTAL EXAMINATION, SURGICAL PROCEDURE, OR ANY OTHER EXPOSURE?NO LATEX RISK : HAVE YOU EVER HAD ANY DIFFICULTY BREATHING OR HIVES AFTER EATING OR HANDLING ANY FRUITS, OR VEGETABLES; SUCH KIWI, BANANAS, STONE FRUITS, OR CHESTNUTSNO LATEX RISK : DO YOU HAVE A PREVIOUS PERSONAL HISTORY OF MORE THAN NINE SURGERIES, SPINA BIFIDA, OR REPEATED CATHERIZATIONS? NO LATEX RISK : ARE YOU FREQUENTLY EXPOSED TO LATEX PRODUCTS IN YOUR OCCUPATION?NO DATE ASKED : 01/21/2021 ALCOHOL USE: NO. ALCOHOL SCREENING DID YOU HAVE A DRINK CONTAINING ALCOHOL IN THE PAST YEAR?NO POINTS0 INTERPRETATIONNEGATIVE RECREATIONAL DRUG USE DRUG USE?NO CAFFEINE CAFFEINE USE?YES COFFEE DAILY LANGUAGE LANGUAGES SPOKEN:BOTH ITALIAN AND ITALIAN EDUCATION LEVEL OF EDUCATION:HIGH SCHOOL LEARNING BARRIERS / SPECIAL NEEDS CHANGE FROM LAST VISIT?NO BARRIERS TO LEARNING?NO HEARING IMPAIRED?NO VISION IMPAIRED?YES :CORRECTIVE LENSES COGNITIVELY IMPAIRED?NO READINESS TO LEARN?YES LEARNING PREFERENCES?NO LEARNING CAPABILITIES PRESENT?YES EMOTIONAL BARRIERS?NO SPECIAL DEVICES?NO GLOVE EXAMINER NEEDED?NO DIET: REGULAR. EXERCISE: GOES TO GYM FAIRLY REGULARLY. MARITAL STATUS: SINGLE. OTHERS AT HOME: 2 DAUGHTERS. - HAS THE PATIENT BEEN EDUCATED REGARDING HIS/HER PLAN OF CARE?YES HAS THE PATIENT BEEN EDUCATED REGARDING PAIN, THE RISK FOR PAIN, THE IMPORTANCE OF EFFECTIVE PAIN MANAGEMENT, AND THE PAIN ASSESSMENT PROCESS?YES HOUSING: RENTS HOUSE. ADVANCE DIRECTIVE ADVANCE DIRECTIVE DISCUSSED WITH PATIENT:YES PATIENT HAS NO ADVANCED DIRECTIVES AND DECLINES INFORMATIN ON HCP AT THIS TIME. HOSPITALIZATION/MAJOR DIAGNOSTIC PROCEDURE SURGERY RELATED REVIEW OF SYSTEMS CONSTITUTIONAL: ANY RECENT FEVER NO . CHILLS NO . WEIGHT CHANGE OF UNKNOWN REASONS NO . GASTROENTEROLOGY: NEW UNEXPLAINABLE CHANGES IN BOWEL CONTROL NO . CONSTIPATION NO . GENITOURINARY: ANY NEW CHANGE IN BLADDER CONTROL? NO . NEUROLOGY: NEW ONSET DIZZINESS OR NEUROLOGICAL CHANGES NOT MENTIONED NO . NEW NUMBNESS OR PAIN PATTERNS NOT MENTIONED AND PERTINENT TO TODAY'S VISIT NO . CARDIOLOGY: NEW CHEST PRESSURE NO . PATIENT DENIES NO . RESPIRATORY: UNEXPLAINABLE COUGH NO . NEW SHORTNESS OF BREATH NO . VITAL SIGNS WT 197.6 LBS, HT 64 IN, BMI 33.91 INDEX, BP 147/86 MM HG, HR 87 /MIN, RR 18 /MIN, TEMP 97.0 F, OXYGEN SAT % 99%, SAFE IN ENV? (Y/N) YES, NA INITIALS AW 1310, REVIEWED BY: SHARON LYLE MA. EXAMINATION GENERAL EXAMINATION: GENERALNO ACUTE DISTRESS, WELL NOURISHED AND HYDRATED. PSYCHAPPROPRIATE MOOD AND AFFECT . LUNGS:CLEAR TO AUSCULTATION BILATERALLY, NO WHEEZES, RHONCHI, RALES. HEART:NO MURMURS, REGULAR RATE AND RHYTHM. ASSESSMENTS MIGRAINE WITHOUT AURA, NOT INTRACTABLE, WITHOUT STATUS MIGRAINOSUS - G43.009 (PRIMARY) TREATMENT MIGRAINE WITHOUT AURA, NOT INTRACTABLE, WITHOUT STATUS MIGRAINOSUS NOTES: 45-YEAR-OLD FEMALE IN FOR INITIAL PAIN CONSULT REGARDING MIGRAINE HEADACHES. GIVEN PRESENTING SYMPTOMS AND RESULTS OF PHYSICAL EXAMINATION RECOMMEND BOTOX INJECTIONS TO THE HEAD NECK AND SHOULDERS WITH POSTPROCEDURAL FOLLOW-UP. PATIENT HAS EXPRESSED UNDERSTANDING OF AND WAS IN AGREEMENT WITH TREATMENT PLAN. GIVEN TIME QUESTIONS AND EXPRESS CONCERNS. OTHERS CLINICAL NOTES: PREPROCEDURE AND PROCEDURE INFORMATION PRINTED AND PROVIDED TO PATIENT. PATIENT VERBALIZED AN UNDERSTANDING. JENNIE LYLE MA. PROCEDURE CODES FA211 ESTABILISHED PATIENT [facility] CHARGE DISPOSITION & COMMUNICATION FOLLOW UP POST PROCEDURE (REASON: BOTOX INJECTIONS OF 155 UNITS INTO BILATERAL RAP ARTIST, PROCERUS, FRONTALIS, TEMPORALIS, OCCIPITALIS, PARASPINAL AND TRAPEZIUS MUSCLES EVERY 3 MONTHS) ELECTRONICALLY SIGNED BY CINDY MACK ON 01/22/2021 AT 09:53 AM EDT DISCLAIMER : THIS IS A VISIT SUMMARY EXTRACTED FROM THE [employer] CHART. IT IS NOT A COPY OF THE [employer] PROGRESS NOTE. ROHIT
== END ==
LOC: M PAIN 13:00
PROVIDERS: ATTEND Family Medicine
DX: G43.009 Migraine without aura, not intractable, without status migrainosus (principal); F41.9 Anxiety disorder, unspecified; M54.2 Cervicalgia; Z79.899 Other long term (current) drug therapy

== ENCOUNTER 2021-02-11 14:03 | Outpatient (CLI) | payer MEDICARE, MEDICAID ==
[~2021-02-11] VITALS: Ht 162.6 cm; Wt 86.3 kg
[~2021-02-11 14:03] MED LIST changes: +MAG SULF 1GM/100ML (MAG RUN) SINGLE DOSE IV ONE; +VALPROATE SOD INJ 1,000 MG in D5W 50 ML IV ONE; +methylPREDNISolone 125MG 2ML VIAL IV ONE
[2021-02-11 14:05] VITALS: BP 136/93
[2021-02-11 17:26] VITALS: BP 148/88
== END 2021-02-11 17:25 | disposition home or self-care (01) ==
LOC: M INFU 14:03
PROVIDERS: ATTEND Psychiatry & Neurology Neurology
DX: G43.719 Chronic migraine without aura, intractable, without status migrainosus (principal)
CPT/HCPCS: 96365; 96366; 96367; J2930; J3475

== ENCOUNTER → 2021-03-12 | Outpatient (CLI) | payer MEDICARE, MEDICAID ==
[~2021-03-12] MED LIST changes: -MAG SULF 1GM/100ML (MAG RUN) SINGLE DOSE IV ONE; -VALPROATE SOD INJ 1,000 MG in D5W 50 ML IV ONE; -methylPREDNISolone 125MG 2ML VIAL IV ONE
== END ==
LOC: M LABSMTC 11:34
PROVIDERS: ATTEND Anesthesiology
DX: Z20.822 Contact with and (suspected) exposure to COVID-19 (principal)

== ENCOUNTER → 2021-03-17 | Outpatient (CLI) | payer MEDICARE, MEDICAID ==
[~2021-03-17] MED LIST changes: +BOTOX THERAPEUTIC 100 UNIT VIAL (J0585 PER 1 UNIT) IM ONE
== END ==
LOC: M PAIN 10:40
PROVIDERS: ATTEND Anesthesiology
DX: G43.709 Chronic migraine without aura, not intractable, without status migrainosus (principal); Z86.59 Personal history of other mental and behavioral disorders; Z79.899 Other long term (current) drug therapy
CPT/HCPCS: 64615; J0585

== ENCOUNTER 2021-05-21 17:34 | Inpatient (IN) | payer MEDICARE, MEDICAID ==
[~2021-05-21] VITALS: Ht 162.6 cm; Wt 81.8 kg
[~2021-05-21 17:34] MED LIST changes: -BOTOX THERAPEUTIC 100 UNIT VIAL (J0585 PER 1 UNIT) IM ONE
--- OUTSIDE RECORDS SUMMARY | 2021-05-21 17:53 | CCD | Continuity of Care Document ---
Author Author Mikal DONOVAN MD Organization Unknown Address [address] [place] [address] Phone [phone] Problems Active Problems Provider Date Essential hypertension Stevenson Lamas MD Onset: 08/16 Social History Type Date Description Comments Sex Unknown ETOH Use Denies alcohol use Tobacco Use Start: Unknown Denies Smoking Smoking Status Reviewed: 04/23/19 Denies Smoking Allergies, Adverse Reactions, Alerts Description No Known Drug Allergies Medications Active Medications SIG Qnty Indications Ordering Provide r Date Neurontin 100mg Capsules 1 by mouth three times a day Unknown Indomethacin 25mg Capsules 1 by mouth three times a day for 30 days; please do not fill until 09/12/17 Unknown Migryl 0.0375-5% Disk Unknown Zanaflex 2mg Capsules 1 by mouth at bedtime as needed may increase to four times a day as needed Unknown Ibuprofen 200mg Capsules as n eeded Unknown Celexa 10mg Tablets Unknown Nausea Relief 1.87-1.87-21.5 Solution Unknown Tizanidine HCL 4mg Tablets Take 1 To 2 Tablets By Mouth Once Daily AT Bedtime as Needed For Neck And Pack Pain Unknown Gabapentin 600mg Tablets Take One Tablet By Mouth Three Times A Day Unknown Citalopram Hydrobromide 20mg Table ts Take One Tablet By Mouth Every Day AT Bedtime Unknown Ondansetron 4mg Table[address] Dis[address] One Tablet By Mouth Twice A Day as Needed For Nausea And Vomiting Unknown Propranolol HCL 10mg Tablets Take One Tablet By Mouth Twice A Day Unknown Topiramate 50mg Tablets Take Two Tablets By Mouth Every Day AT Bedtime Unknown Dihydroergotamine Mesylate 4mg/ml Solution Nargis Kay MBBS Immunizations Description No Information Available Vital Signs Date Vital Result Comment 01/23/2020 11:54am Body Temperature 97.2 F Height 64 inches 5'4" Weight 195.00 lb BMI (Body Mass Index) 33.5 kg/m2 08/16/2019 11:25am Height 64 inches 5'4" Weight 180.00 lb BMI (Body Mass Index) 30.9 kg/m2 Results Description No Information Available Procedures Date Code Description Status 02/04/2021 11576 Office/Outpatient Established Lo w MDM 20-29 Min Completed Medical Devices Description No Information Available Encounters Type Date Location Provider Dx Diagnosis Office Visit 02/04/2021 1:45p [place] Oscar Donovan MD M72.2 Plantar fascial fibromatosis Assessments Date Code Description Provider 02/04/2021 M72.2 Plantar fascial fibromatosis Gianni eli Donovan MD 02/04/2021 M72.2 Plantar fascial fibromatosis Gianni eli Donovan MD Plan of Treatment 02/04/2021 - Oscar Donovan MD* M72.2 Plantar fascial fibromatosis* Follow up:* prn Functional Status Description No Information Available Mental Status Description No Information Available Referrals Description No Information Available
--- OUTSIDE RECORDS SUMMARY | 2021-05-21 17:53 | CCD ---
Author Author [facility] Organization [facility] Address Unknown Phone Unavailable Care Team Providers Care Hand Coke Drawer Name Role Phone Keshawn Castaneda Unavailable PROBLEMS Type Condition ICD9-CM Code [id number] Code Onset Dates Condition S tatus W/U Status Risk SNOMED Code Notes Problem Migraine without aura, not intractable, without status migrainosus G43.009 Active confirmed 088407709 Problem Chronic migraine G43.709 Active confirmed 42 3700953 Problem Sacroiliitis M46.1 Active confirmed 9201130 [id number] ALLERGIES No Known Allergies ENCOUNTERS from 1975 to 2021-04-07 Encounter Location Date Provider Diagnosis [facility] [address] Floor [phone] [place] [address] Mar, Keshawn Castaneda Chronic migraine G43 .709 IMMUNIZATIONS No Information SOCIAL HISTORY Tobacco Use: Social History Observation Description Date Details (start date - stop date) Never Smoker Sex Assigned At : Social History Observation Description Sex Assigned At Unknown Education: Question Answer Notes Level of Education: High School Language: Question Answer Notes Languages spoken: Both Portuguese and Togolese Bahai: Question Answer Notes Bahai 33 None Alcohol Screening: Question Answer Notes Did you have a drink containing alcohol in the past year? No Points 0 Interpretation Negative Tobacco Use: Question Answer Notes Are you a: never smoker REASON FOR REFERRAL No Information VITAL SIGNS Weight 203.8 lbs Mar, Weight-kg 92.44 kg Mar, Height 64 in Mar, BMI 34.98 kg/m2 Mar, Heart Rate 78 /min Mar, Respiratory Rate 18 /min Mar, Temperature 97.3 degrees Fahrenheit Mar, Oximetry 98% Mar, Blood pressure systolic 142 mm Hg Mar, Blood pressure diastolic 82 mm Hg Mar, MEDICATIONS Medication SIG (Take, Route, Frequency, Duration) Notes Start Da te End Date Status traMADol HCl 50 MG 1 tablet as needed Orally every 4 hours as needed Not-Taking CeleXA 20 MG 1 tablet Orally Once a day for 30 day(s) Not-Taking Ibuprofen 800 MG 1 tablet with food or milk as needed Ora lly Three times a day 03/16 08 Active Neurontin 800 MG 1 tablet Orally four times daily Not-Taking Zofran 4 MG 1 tablet Orally Once a day-takes as needed Active Indomethacin ER 75 MG 1 capsule with food or milk Orally Once a day as needed for migraines none the recent Active Vitamin C 500 MG Orally occ Not-Taki ng Zanaflex 4 MG 1 to 2 tabs Orally at bedtime as needed 03/16 2300 Active Botox 200 UNIT Injection 09/21 Active Gabapentin 600 MG 1 tablet Orally tid 03/17 07 Active Citalopram Hydrobromide 20 MG 1 tablet Orally Once a day for 30 day(s ) Active Botox 100 UNIT for IM injection at the head , neck and shoulder muscles ICD G43.709 BOTOX on 03/17/21 at 10:40 Mar, Active Nerve Block Tray Not-Chase duff Migranal 4 MG/ML Nasally daily as needed last week Active PROCEDURES from 1976 to 2021-04-07 Procedure Date Ordered Result Body Site Completion of procedural visit when meets criteria 2021-03-17 N/A RESULTS No Results REASON FOR VISIT Botox injections to the head, neck and shoulder areas MEDICAL (GENERAL) HISTORY Type Description Date Medical History Migraines Medical History Arnold Chiari malformation sees Neuro Medical History ACL injury and FX tibia 2017 Medical History 4th and 5th digits left hand 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 Medical History Anxiety Medical History Chronic Neck & Back Pain Medical History Left Elbow Fracture Medical History Plantar Faciits left foot Surgical History Arnold Chiari Decompression Surgical History ORIF Surgical History Hand Surgery after Crush Injury Surgical History Tubal Ligation Surgical History Hysterectomy Surgical History Left Knee Surgery Hospitalization History Surgery Related Goals Section No Information Health Concerns No Information MEDICAL EQUIPMENT No Information MENTAL STATUS No Information FUNCTIONAL STATUS No Information ASSESSMENTS Encounter Date Diagnosis Assessment Notes Treatment Notes Treatm ent Clinical Notes Mar, Chronic migraine (ICD-10 - G43.709) PLAN OF TREATMENT Next Appt Details 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
--- OUTSIDE RECORDS SUMMARY | 2021-05-21 17:53 | CCD | Continuity of Care Document ---
Author Author Mikal DONOVAN MD Organization Unknown Address [address] [place] [address] Phone [phone] Problems Active Problems Provider Date Essential hypertension [...] Available Procedures Date Code Description Status 02/04/2021 61076 Office/Outpatient Established Lo w MDM 20-29 Min Completed Medical Devices Description No Information Available Encounters Type Date Location Provider Dx Diagnosis Office Visit 02/04/2021 1:45p [place] Oscar Donovan MD M72.2 Plantar fascial fibromatosis [...]
--- OUTSIDE RECORDS SUMMARY | 2021-05-21 17:53 | CCD ---
Author Author [facility] Organization [facility] Address Unknown Phone Unavailable Care Team Providers Care Mail Teller Name Role Phone Keshawn Castaneda Unavailable PROBLEMS Type Condition ICD9-CM Code [id number] Code Onset Dates Condition S tatus W/U Status Risk SNOMED Code Notes Problem Sacroiliitis M46.1 Active confirmed 8866926 9 Problem Migraine without aura, not intractable, without status migrainosus G43.009 Active confirmed [id number] ALLERGIES No Known Allergies ENCOUNTERS from 1976 to 2021-03-09 Encounter Location Date Provider Diagnosis [facility] [address] Floor [phone] [place] [address] Mar, Keshawn Castaneda IMMUNIZATIONS No Information SOCIAL HISTORY Tobacco Use: Social History Observation Description Date Details (start date - stop date) Never Smoker Sex Assigned At : Social History Observation Description Sex Assigned At Unknown Education: Question Answer Notes Level of Education: High School Language: Question Answer Notes Languages spoken: Both Urdu and Bengali Orthodox: Question Answer Notes Orthodox 33 None Alcohol Screening: Question Answer Notes Did you have a drink containing alcohol in the past year? No Points 0 Interpretation Negative Tobacco Use: Question Answer Notes Are you a: never smoker REASON FOR REFERRAL No Information VITAL SIGNS No information MEDICATIONS Medication SIG (Take, Route, Frequency, Duration) Notes Start Da te End Date Status Citalopram Hydrobromide 20 MG 1 tablet Orally Once a day for 30 day(s ) Active Zanaflex 4 MG 1 to 2 tabs Orally at bedtime as needed Active Botox 100 UNIT for IM injection at the head , neck and shoulder muscles ICD G43.709 BOTOX on 03/17/21 at 10:40 09 Mar, 2021 Active Indomethacin ER 75 MG 1 capsule with food or milk Orally Once a day as needed for migraines Active Migranal 4 MG/ML Nasally daily as needed Active Vitamin C 500 MG Orally occ Not-Taki ng Gabapentin 600 MG 1 tablet Orally tid Active Neurontin 800 MG 1 tablet Orally four times daily Not-Taking Nerve Block Tray Not-Taki ng Zofran 4 MG 1 tablet Orally Once a day for 30 day(s) Active Ibuprofen 800 MG 1 tablet with food or milk as needed Ora lly Three times a day Active Botox 200 UNIT Injection Active CeleXA 20 MG 1 tablet Orally Once a day for 30 day(s) Not-Taking traMADol HCl 50 MG 1 tablet as needed Orally every 4 hours as needed Not-Taking PROCEDURES No Information RESULTS No Results REASON FOR VISIT BOTOX MEDICAL (GENERAL) HISTORY Type Description Date Medical History Migraines Medical History Arnold Chiari malformation sees Neuro Medical History ACL injury and FX tibia 2017 Medical History 4th and 5th digits left hand 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 Medical History Anxiety Medical History Chronic Neck & Back Pain Medical History Left Elbow Fracture Surgical History Arnold Chiari Decompression Surgical History ORIF Surgical History Hand Surgery after Crush Injury Surgical History Tubal Ligation Surgical History Hysterectomy Surgical History Left Knee Surgery Hospitalization History Surgery Related Goals Section No Information Health Concerns No Information MEDICAL EQUIPMENT No Information MENTAL STATUS No Information FUNCTIONAL STATUS No Information ASSESSMENTS No Information PLAN OF TREATMENT Medication Medication Name Sig Start Date Stop Date Botox 100 UNIT for IM injection at the head , neck and shoulder muscles ICD G43.709 BOTOX on 03/17/21 at 10:40 Mar, Next Appt Details Provider Name:Keshawn Castaneda, 2021-03-17 10:40:00 AM, [address], , [place], [address], Provider Name:Keshawn Castaneda, 2021-04-17 02:00:00 PM, [address], , [place], [address], Insurance Providers Payer Name Payer Address Payer Phone Insured Name Patient Relati onship to Insured Coverage Start Date Coverage End Date MEDICARE Part A and B [address] [facility] [phone] DALIA JIMENEZ MEDICAID [employer] [address] [facility] [id number] DALIA JIMENEZ self
--- OUTSIDE RECORDS SUMMARY | 2021-05-21 17:53 | CCD ---
Author Author [facility] Organization [facility] Address Unknown Phone Unavailable Care Team Providers Care Edge Worker Name Role Phone Venice Donovan MD Unavailable Unavailable Venice Donovan MD Unavailable Unavailable Venice Donovan MD Unavailable Unavailable Venice Donovan MD Unavailable Unavailable Venice Donovan MD Unavailable Unavailable Venice Donovan MD Unavailable Unavailable Venice Donovan MD Unavailable Unavailable Venice Donovan MD Unavailable Unavailable Venice Donovan MD Unavailable Unavailable Venice Donovan MD Unavailable Unavailable Venice Donovan MD Unavailable Unavailable Nargis Kay MD Unavailable Unavailable Nargis Kay MD Unavailable Unavailable Nargis Kay MD Unavailable Unavailable Nargis Kay MD Unavailable Unavailable Nargis Kay MD Unavailable Unavailable Nargis Kay MD Unavailable Unavailable Nargis Kay MD Unavailable Unavailable Nargis Kay MD Unavailable Unavailable Nargis Kay MD Unavailable Unavailable Nargis Kay MD Unavailable Unavailable Nargis Kay MD Unavailable Unavailable Nargis Kay MD Unavailable Unavailable Nargis Kay MD Unavailable Unavailable Nargis Kay MD Unavailable Unavailable Nargis Kay MD Unavailable Unavailable Nargis Kay MD Unavailable Unavailable Nargis Kay MD Unavailable Unavailable Nargis Kay MD Unavailable Unavailable Nargis Kay MD Unavailable Unavailable Nargis Kay MD Unavailable Unavailable Nargis Kay MD Unavailable Unavailable Nargis Kay MD Unavailable Unavailable Nargis Kay MD Unavailable Unavailable Nargis Kay MD Unavailable Unavailable Nargis Kay MD Unavailable Unavailable Nargis Kay MD Unavailable Unavailable Nargis Kay MD Unavailable Unavailable Nargis Kay MD Unavailable Unavailable Nargis Kay MD Unavailable Unavailable Nargis Kay MD Unavailable Unavailable Nargis Kay MD Unavailable Unavailable Nargis Kay MD Unavailable Unavailable Nargis Kay MD Unavailable Unavailable Nargis Kay MD Unavailable Unavailable Ali, Nargis MD Unavailable Unavailable Ali, Nargis MD Unavailable Unavailable Ali, Nargis MD Unavailable Unavailable Ali, Nargis MD Unavailable Unavailable Ali, Nargis MD Unavailable Unavailable Ali, Nargis MD Unavailable Unavailable Ali, Nargis MD Unavailable Unavailable Ali, Nargis MD Unavailable Unavailable Ali, Nargis MD Unavailable Unavailable Ali, Nargis MD Unavailable Unavailable Ali, Nargis MD Unavailable Unavailable Ali, Nargis MD Unavailable Unavailable Ali, Nargis MD Unavailable Unavailable Ali, Nargis MD Unavailable Unavailable Ali, Nargis MD Unavailable Unavailable Ali, Nargis MD Unavailable Unavailable Re-disclosure Warning The records that you are about to access may contain information from federally-assisted alcohol or drug abuse programs. If such information is present, then the following federally mandated warning applies: This information has been disclosed to you from records protected by federal confidentiality rules (42 CFR part 2). The federal rules prohibit you from making any further disclosure of this information unless further disclosure is expressly permitted by the written consent of the person to whom it pertains or as otherwise permitted by 42 CFR part 2. A general authorization for the release of medical or other information is NOT sufficient for this purpose. The Federal rules restrict any use of the information to criminally investigate or prosecute any alcohol or drug abuse patient.The records that you are about to access may contain highly sensitive health information, the redisclosure of which is protected by Article 27-F of the [facility] Public Health law. If you continue you may have access to information: Regarding HIV / AIDS; Provided by facilities licensed or operated by the [facility] Office of Mental Health; or Provided by the [facility] Office for People With Developmental Disabilities. If such information is present, then the following [facility] mandated warning applies: This information has been disclosed to you from confidential records which are protected by state law. State law prohibits you from making any further disclosure of this information without the specific written consent of the person to whom it pertains, or as otherwise permitted by law. Any unauthorized further disclosure in violation of state law may result in a fine or nursing home sentence or both. A general authorization for the release of medical or other information is NOT sufficient authorization for further disc losure. Family History Family Member Name Family Member Gender Family Member Status Date o f Status Description Data Source(s) Unknown Male Problem MEDENT ([facility]) Encounters Encounter Providers Location Date Indications Data Source(s ) (PN Botox) Botox [address] [place] [address] 03/17/2021 12:00:00 AM EDT eCW1 ([facility]) [place] [address] [facility] [address] 03/09/2021 12:00:00 AM EDT eCW1 ([facility]) OFFICE OUTPATIENT VISIT 15 MINUTES Attender: Oscar Donovan MD P hysical Therapy 02/04/2021 01:45:00 PM EDT [facility] ([facility]) [place] [address] [facility] [address] 01/21/2021 12:00:00 AM EDT eCW1 ([facility]) [place] [address] [facility] [address] 12/18/2020 12:00:00 AM EDT eCW1 ([facility]) Outpatient Attender: Nargis Kay MD Main office - [place] 12/16/2020 02:45:00 PM EDT MEDENT ([facility]) Outpatient Attender: Nargis Kay MD Main office - [place] 07/16/2020 10:15:00 AM EST MEDENT ([facility]) Medications Medication Brand Name Start Date Product Form Dose Route Admi nistrative Instructions Pharmacy Instructions Status Indications Reaction Description Data Source(s) onabotulinumtoxinA 100 UNT/ML Injectable Solution [Bot ox] Botox 100 UNIT Botox 100 UNIT 03/09/2021 12:00:00 AM EDT active Botox 100 UNIT eCW1 ([facility]) onabotulinumtoxinA 100 UNT/ML Injectable Solution [Bot ox] Botox 100 UNIT Botox 100 UNIT 03/09/2021 12:00:00 AM EDT active Botox 100 UNIT eCW1 ([facility]) 10 mg 07/17/2020 12:00:00 AM EST tablet 60 TAKE ONE TABLET BY MOUTH TWICE A DAY TAKE ONE TABLET BY MOUTH TWICE A DAY SOLD: 07/18/2020 [facility] 600 mg 07/17/2020 12:00:00 AM EST tablet 90 TAKE ONE TABLET BY MOUTH THREE TIMES A DAY TAKE ONE TABLET BY MOUTH THREE TIMES A DAY SOLD: 07/18/2020 [facility] 4 mg 07/17/2020 12:00:00 AM EST tablet,disintegrating 3 0 DISSOLVE ONE TABLET ON TONGUE TWICE A DAY FOR NAUSEA AND VOMITING DISSOLVE ONE TABLET ON TONGUE TWICE A DAY FOR NAUSEA AND VOMITING SOLD: 07/18/2020 [facility] Citalopram 20 MG Oral Tablet CITALOPRAM HYDROBROMIDE 07/17/2020 12:00:00 AM EST tablet 30 TAKE ONE TABLET BY MOUTH EVERY D AY AT BEDTIME TAKE ONE TABLET BY MOUTH EVERY DAY AT BEDTIME SOLD: 07/18/2020 [facility] tizanidine 4 MG Oral Tablet TIZANIDINE HCL 07/16/2020 12:00:00 AM EST tablet 60 TAKE ONE TO TWO TABLETS BY MOUTH DAILY A T BEDTIME NEEDED FOR NECK AND BACK PAIN TAKE ONE TO TWO TABLETS BY MOUTH DAILY A T BEDTIME NEEDED FOR NECK AND BACK PAIN SOLD: 07/18/2020 [facility] 50 mg 05/14/2020 12:00:00 AM EDT tablet 60 TAKE TWO TABLETS BY MOUTH EVERY DAY AT BEDTIME TAKE TWO TABLETS BY MOUTH EVERY DAY AT BEDTIME SOLD: 020 [facility] 50 mg 05/14/2020 12:00:00 AM EDT tablet 60 TAKE TWO TABLETS BY MOUTH EVERY DAY AT BEDTIME TAKE TWO TABLETS BY MOUTH EVERY DAY AT BEDTIME SOLD: 020 [facility] 4 mg 02/25/2020 12:00:00 AM EDT tablet 60 TAKE 1-2 TABLETS BY MOUTH AT BEDTIME NEEDED FOR NECK AND BACK PAIN MAXIMUM DAILY DOSE = 2 TAKE 1-2 TABLETS BY MOUTH AT BEDTIME NEEDED FOR NECK AND BACK PAIN MAXIMUM DAILY DOSE = 2 SOLD: 04/21/2020 [facility] tizanidine 4 MG Oral Tablet TIZANIDINE HCL 02/25/2020 12:00:00 AM EDT tablet 60 TAKE 1-2 TABLETS BY MOUTH AT BEDTIME NEEDED FOR NECK AND BACK PAIN MAXIMUM DAILY DOSE = 2 TAKE 1-2 TABLETS BY MOUTH AT BEDTIME NEEDED FOR NECK AND BACK PAIN MAXIMUM DAILY DOSE = 2 SOLD: 06/09/2020 [facility] 600 mg 02/13/2020 12:00:00 AM EDT tablet 90 TAKE ONE TABLET BY MOUTH THREE TIMES A DAY MAXIMUM DAILY DOSE = 3 TAKE ONE TABLET BY MOUTH THREE TIMES A D AY MAXIMUM DAILY DOSE = 3 SOLD: 06/09/2020 [facility] Citalopram 20 MG Oral Tablet CITALOPRAM HYDROBROMIDE 02/13/2020 12:00:00 AM EDT tablet 30 TAKE ONE TABLET BY MOUTH AT BEDT KENNY TAKE ONE TABLET BY MOUTH AT BEDTIME SOLD: 04/21/2020 [facility] 50 mg 02/13/2020 12:00:00 AM EDT tablet 30 TAKE ONE-HALF TABLET BY MOUTH AT BEDTIME FOR 1 WEEK THEN TAKE ONE TABLET BY MOUTH AT BEDTIME TAKE ONE-HALF TABLET BY MOUTH AT BEDTIME FOR 1 WEEK THEN TAKE ONE TABLET BY MOUTH AT BEDTIME SOLD: 04/21/2020 [facility] topiramate 50 MG Oral Tablet Topiramate 02/13/2020 12:00:00 AM EDT ORAL completed MED[facility] ([facility] ) 600 mg 02/13/2020 12:00:00 AM EDT tablet 90 TAKE ONE TABLET BY MOUTH THREE TIMES A DAY MAXIMUM DAILY DOSE = 3 TAKE ONE TABLET BY MOUTH THREE TIMES A D AY MAXIMUM DAILY DOSE = 3 SOLD: 04/09/2020 [facility] 10 mg 02/13/2020 12:00:00 AM EDT tablet 60 TAKE ONE TABLET BY MOUTH TWICE A DAY TAKE ONE TABLET BY MOUTH TWICE A DAY SOLD: 06/09/2020 [facility] Citalopram 20 MG Oral Tablet CITALOPRAM HYDROBROMIDE 02/13/2020 12:00:00 AM EDT tablet 30 TAKE ONE TABLET BY MOUTH AT BEDT KENNY TAKE ONE TABLET BY MOUTH AT BEDTIME SOLD: 05/22/2020 [facility] Citalopram 20 MG Oral Tablet CITALOPRAM HYDROBROMIDE 02/13/2020 12:00:00 AM EDT tablet 30 TAKE ONE TABLET BY MOUTH AT BEDT KENNY TAKE ONE TABLET BY MOUTH AT BEDTIME SOLD: 06/23/2020 [facility] 600 mg 02/13/2020 12:00:00 AM EDT tablet 90 TAKE ONE TABLET BY MOUTH THREE TIMES A DAY MAXIMUM DAILY DOSE = 3 TAKE ONE TABLET BY MOUTH THREE TIMES A D AY MAXIMUM DAILY DOSE = 3 SOLD: 05/13/2020 [facility] Insurance Providers Payer name Policy type / Coverage type Policy ID Covered libertarian ID Covered libertarian's relationship to sneed Policy Sneed Plan Information [place] Medicare Primary [id number] Self [id number] Medicaid [place] [id number] .[id number] Self [id number] Medicare [place] Medicare Primary [id number] Self [id number] [place] [id number] [id number] .[id number] Self [id number] Medicare [place] Medicare Primary [id number] [id number] Self [id number] [place] [id number] [id number] .[id number] Self [id number] [place] Medicare Primary [id number] [id number] Self [id number] [place] [id number] 2.0.1.297067.3.227.99 .[id number] Self [id number] Medicare [place] Medicare Primary [id number] [id number] Self [id number] [place] [id number] [id number] .[id number] Self [id number] [place] [id number] 2.0.1.708901.3.227.99 .[id number] Self [id number] Medicare [place] Medicare Primary [id number] [id number] Self [id number] [place] [id number] 2.840.1.063147.3.227.99 .[id number] Self [id number] [place] Medicare Primary [id number] [id number] Self [id number] Medicaid [facility] Part B [id number] 2.840.1.438180.3.227.99 .[id number] Self [id number] Medicare [place] Medicare Primary [id number] [id number] Self [id number] Medicaid [facility] Part B [id number] 2.0.1.978252.3.227.99 .[id number] Self [id number] Medicare [place] Medicare Primary [id number] [id number] Self [id number] Medicaid [facility] Part B [id number] 2.0.1.955115.3.227.99 .[id number] Self [id number] Medicare [place] Medicare Primary [id number] Self [id number] Medicaid [facility] Part B [id number] 2.840.1.510147.3.227.99 .[id number] Self [id number] Medicare [place] Medicare Primary [id number] 2.8[id number] Self [id number] [facility] [id number] 2.0.1.731900.3.227.99 .[id number] Self [id number] [facility] [id number] 2.840.1.260047.3.227.99 .[id number] Self [id number] Medicare [place] Medicare Primary [id number] 2.8[id number] Self [id number] [place] [id number] 2.840.1.341940.3.227.99 .[id number] Self [id number] [place] [id number] 2.840.1.844263.3.227.99 .[id number] Self [id number] Medicare [place] Medicare Primary [id number] [id number] Self [id number] Medicare [place] Medicare Primary [id number] [id number] Self [id number] [place] [id number] 2.0.1.085208.3.227.99 .[id number] Self [id number] Medicare [place] Medicare Primary [id number] 2.840.1.073[id number] Self [id number] Medicare [place] Medicare Primary [id number] [id number] Self [id number] MEDICARE PART A -O/P [id number] 18 [id number] MEDICARE [id number] SP [id number] EMEDNY [id number] SP [id number] SELF PAY ONLY [id number] SP [id number] MEDICARE C [id number] S [id number] MEDICAID M [id number] S [id number] MEDICAID [id number] SP [id number] Medicare Dme Supplies Medigap Part B [id number] Self [id number] Medicare Dme Supplies Medigap Part B [id number] Self [id number] Medicare Dme Supplies Medigap Part B [id number] Self [id number] Medicare Dme Supplies Medigap Part B [id number] Self [id number] Medicare Dme Supplies Medigap Part B [id number] Self [id number] MEDICARE C [id number] S [id number] Medicare Dme Supplies Medigap Part B [id number] [id number] Self [id number] Medicare Dme Supplies Medigap Part B [id number] Self [id number] Medicare Dme Supplies Medigap Part B [id number] Self [id number] Medicare Dme Supplies Medigap Part B [id number] Self [id number] Medicare Dme Supplies Medigap Part B [id number] Self [id number] MEDICARE [id number] SP [id number] A Medicare Dme Supplies Medigap Part B [id number] Self [id number] Medicare Dme Supplies Medigap Part B [id number] Self [id number] Medicare Dme Supplies Medigap Part B [id number] Self [id number] Medicare Dme Supplies Medigap Part B [id number] Self [id number] MEDICAID -O/P [id number] [facility] MEDICAID [id number] SP [id number] B Problems, Conditions, and Diagnoses Code Display Name Description Problem Type Effective Dates Data Source(s) G43.709 [id number] Chronic migraine Problem 03/17/2021 12:00:00 AM EDT eC ([facility]) G43.009 [id number] Migraine without aur a, not intractable, without status migrainosus Problem 01/21/2021 12:00:00 AM EDT eC1 ([facility]) G56.22 Lesion of ulnar nerve Lesion of ulnar nerve Problem 12/16/2020 12:00:00 AM EDT MEDENT ([facility] ) G56.03 Bilateral carpal tunnel syndrome Bilateral carpa l tunnel syndrome Problem 12/16/2020 12:00:00 AM EDT [facility] ([facility] ) Surgeries/Procedures Procedure Description Date Indications Data Source(s) Completion of procedural visit when meets criteria 03/17/2021 12:00:00 AM EDT eCW ([facility]) OFFICE OUTPATIENT VISIT 15 MINUTES 02/04/2021 12:00:00 AM EDT MED[facility] ([facility] OFFICE OUTPATIENT VISIT 25 MINUTES 02/04/2021 12:00:00 AM EDT MED[facility] ([facility] ) Needle electromyography, each extremity, with related paraspinal areas, when performed, done with nerve conduction, amplitude and latency/velocity study; complete, five or more muscles studied, innervated by three or more nerves or four or more spinal levels (list separately in addition to the code for primary procedure). 11/03/2020 12:00:00 AM EDT MEDEN T ([facility] ) Needle electromyography, each extremity, with related paraspinal areas, when performed, done with nerve conduction, amplitude and latency/velocity study; complete, five or more muscles studied, innervated by three or more nerves or four or more spinal levels (list separately in addition to the code for primary procedure). 11/03/2020 12:00:00 AM EDT MEDEN T ([facility] ) Nerve Conduction 9-10 Studies 11/03/2020 12:00:00 AM E DT MEDENT ([facility] ) CHEMODNRVTJ MUSC MUSC INNERVATED FACIAL NRV 10/27/2020 12:00:00 AM EDT MEDENT ([facility] ) CHEMODNRVTJ MUSC MUSC INNERVATED FACIAL NRV 08/29/2020 12:00:00 AM EST MEDENT ([facility] ) CHEMODNRVTJ MUSC MUSC INNERVATED FACIAL NRV 05/22/2020 12:00:00 AM EDT MEDENT ([facility] ) THERAPEUTIC PX 1/> AREAS EACH 15 MIN EXERCISES 12:00:00 AM EDT MEDENT ([facility] ) MANUAL THERAPY TQS 1/> REGIONS EACH 15 MINUTES 12:00:00 AM EDT MEDENT ([facility] ) THERAPEUTIC PX 1/> AREAS EACH 15 MIN EXERCISES 12:00:00 AM EDT MEDENT ([facility] ) MANUAL THERAPY TQS 1/> REGIONS EACH 15 MINUTES 12:00:00 AM EDT MEDENT ([facility] ) THERAPEUTIC PX 1/> AREAS EACH 15 MIN EXERCISES 12:00:00 AM EDT MEDENT ([facility] ) MANUAL THERAPY TQS 1/> REGIONS EACH 15 MINUTES 12:00:00 AM EDT MEDENT ([facility] ) THERAPEUTIC PX 1/> AREAS EACH 15 MIN EXERCISES 12:00:00 AM EDT MEDENT ([facility] ) MANUAL THERAPY TQS 1/> REGIONS EACH 15 MINUTES 12:00:00 AM EDT MEDENT ([facility] ) MANUAL THERAPY TQS 1/> REGIONS EACH 15 MINUTES 12:00:00 AM EDT MEDENT ([facility] ) THERAPEUTIC PX 1/> AREAS EACH 15 MIN EXERCISES 12:00:00 AM EDT MEDENT ([facility] ) THERAPEUTIC PX 1/> AREAS EACH 15 MIN EXERCISES 12:00:00 AM EDT MEDENT ([facility] ) MANUAL THERAPY TQS 1/> REGIONS EACH 15 MINUTES 12:00:00 AM EDT MEDENT ([facility] ) Physical Therapy Eval - Low Complexity 04/16/2020 12:0 0:00 AM EDT MED[facility] ([facility] ) INJECTION 1 TENDON SHEATH/LIGAMENT APONEUROSIS 12:00:00 AM EDT MED[facility] ([facility] ) RADEX ANKLE COMPLETE MINIMUM 3 VIEWS 04/03/2020 12:00: 00 AM EDT MEDENT ([facility] ) RADEX FOOT COMPLETE MINIMUM 3 VIEWS 04/03/2020 12:00:0 0 AM EDT MEDENT ([facility] ) Results ID Date Data Source [id number] 06/24/2020 12:00:00 PM EST [facility] Name Value Range Interpretation Code Description Data Viktoria rce(s) Supporting Document(s) SARS coronavirus 2 RNA [facility] This lab was ordered by [facility] and reported by [facility]. Procedure Social History Code Duration Value Status Description Data Source(s ) Smoking 03/17/2021 12:00:00 AM EDT Never Smoker completed Never S moker eCW1 ([facility]) Smoking 01/21/2021 12:00:00 AM EDT Never Smoker completed Never S moker eCW1 ([facility]) Smoking 01/21/2021 12:00:00 AM EDT Never Smoker completed Never S moker eCW1 ([facility]) Vital Signs ID Date Data Source UNK Name Value Range Interpretation Code Description Data Source(s) Body weight 203.8 [lb_av] 203.8 [lb_av] eCW1 ([facility]) Body weight 92.44 kg 92.44 kg eCW1 ([facility]) Body height 64 [in_i] 64 [in_i] eCW1 ([facility]) Body mass index (BMI) [Ratio] 34.98 kg/m2 34.98 kg/m2 eCW1 ([facility]) Heart rate 78 /min 78 /min eCW1 ([facility]) Respiratory rate 18 /min 18 /min eCW1 ([facility]) Body temperature 97.3 [degF] 97.3 [degF] eCW1 ( [facility]) Systolic blood pressure 142 mm[Hg] 142 mm[Hg] e CW1 ([facility]) Diastolic blood pressure 82 mm[Hg] 82 mm[Hg] eCW1 ([facility]) Body weight 197.6 [lb_av] 197.6 [lb_av] eCW1 ([facility]) Body height 64 [in_i] 64 [in_i] eCW1 ([facility]) Body mass index (BMI) [Ratio] 33.91 kg/m2 33.91 kg/m2 eCW1 ([facility]) Heart rate 87 /min 87 /min eCW1 ([facility]) Respiratory rate 18 /min 18 /min eCW1 ([facility]) Body temperature 97.0 [degF] 97.0 [degF] eCW1 ( [facility]) Systolic blood pressure 147 mm[Hg] 147 mm[Hg] e CW1 ([facility]) Diastolic blood pressure 86 mm[Hg] 86 mm[Hg] eCW1 ([facility]) Patient Treatment Plan of Care Planned Activity Planned Date Details Description Data Source (s) onabotulinumtoxinA 100 UNT/ML Injectable Solution [Bot ox] 03/09/2021 12:00:00 AM EDT eCW1 ([facility])
--- OUTSIDE RECORDS SUMMARY | 2021-05-21 18:51 | CCD ---
Author Author [facility] Organization [facility] Address Unknown Phone Unavailable Care Team Providers Care Wrapper Hand Name Role Phone Venice Donovan MD Unavailable [...] is protected by Article 27-F of the [facility] Public Health law. If you continue you may have access to information: Regarding HIV / AIDS; Provided by facilities licensed or operated by the [facility] Office of Mental Health; or Provided by the [facility] Office for People With Developmental Disabilities. If such information is present, then the following [facility] mandated warning applies: This information has [...] law may result in a fine or penitentiary sentence or both. A general authorization for the release of medical or other information is NOT sufficient authorization for further disc losure. Family History Family Member Name Family Member Gender Family Member Status Date o f Status Description Data Source(s) Unknown Male Problem MEDENT ([facility]) Encounters Encounter Providers Location Date Indications Data Source(s ) (PN Botox) Botox [address] [place] [address] 03/17/2021 12:00:00 AM EDT eCW1 ([facility]) Unknown [address] [facility] [address] 03/09/2021 12:00:00 AM EDT eCW1 ([facility]) OFFICE OUTPATIENT VISIT 15 MINUTES Attender: Oscar Donovan MD P hysical Therapy 02/04/2021 01:45:00 PM EDT MED[facility] ([facility]) Outpatient [address] [facility] [address] 01/21/2021 12:00:00 AM EDT eCW1 ([facility]) Unknown [address] [facility] [address] 12/18/2020 12:00:00 AM EDT eCW1 ([facility]) Outpatient Attender: Nargis Kay MD Main office - [place] 12/16/2020 02:45:00 PM EDT MED[facility] ([facility]) Outpatient Attender: Nargis Kay MD Main office - [place] 07/16/2020 10:15:00 AM EST MED[facility] ([facility]) Medications Medication Brand Name Start Date Product Form Dose Route Admi nistrative Instructions Pharmacy Instructions Status Indications Reaction Description Data Source(s) onabotulinumtoxinA 100 UNT/ML Injectable Solution [Bot ox] Botox 100 UNIT Botox 100 UNIT 03/09/2021 12:00:00 AM EDT active Botox 100 UNIT eCW1 ([facility]) onabotulinumtoxinA 100 UNT/ML Injectable Solution [Bot ox] Botox 100 UNIT Botox 100 UNIT 03/09/2021 12:00:00 AM EDT active Botox 100 UNIT eCW1 ([facility]) 10 mg 07/17/2020 12:00:00 AM EST tablet [...] 02/13/2020 12:00:00 AM EDT ORAL completed MEDENT ([facility] ) 600 mg 02/13/2020 12:00:00 AM [...] type / Coverage type Policy ID Covered democrat ID Covered democrat's relationship to sneed Policy Sneed Plan Information Medicare [place] Primary [id number] Self [id number] [place] [id number] 2.840.1.533894.3.227.99 .[id number] Self [id number] Medicare [place] Medicare Primary [id number] 2.840.1.308912.3.227.99.991.694526.0 Self [id number] [place] [id number] 2.0.1.915430.3.227.99 .991.187206.0 Self [id number] Medicare [place] Medicare Primary [id number] 2.0.1.006790.3.227.99.991.933858.0 Self [id number] [place] [id number] 2.0.1.358878.3.227.99 .991.853372.0 Self [id number] [place] Medicare Primary [id number] 2.0.1.534180.3.227.99.991.167770.0 Self [id number] [place] [id number] 2.0.1.598347.3.227.99 .991.696574.0 Self [id number] [place] Medicare Primary [id number] 2.0.1.293200.3.227.99.991.616455.0 Self [id number] [place] [id number] 2.0.1.731510.3.227.99 .991.458566.0 Self [id number] [place] [id number] 2.0.1.180640.3.227.99 .991.947722.0 Self [id number] Medicare [place] Medicare Primary [id number] 2.0.1.499600.3.227.99.991.593424.0 Self [id number] [place] [id number] 2.840.1.185861.3.227.99 .991.609657.0 Self [id number] [place] Medicare Primary [id number] 2.840.1.677996.3.227.99.991.525085.0 Self [id number] Medicaid [facility] Part B [id number] 2.840.1.325616.3.227.99 .991.476241.0 Self [id number] [place] Primary [id number] 2.840.1.159172.3.227.99.991.558880.0 Self [id number] Medicaid [facility] Part B [id number] 2.0.1.765710.3.227.99 .991.457915.0 Self [id number] [place] Medicare Primary [id number] 2.0.1.201141.3.227.99.991.564998.0 Self [id number] Medicaid [facility] Part B [id number] 2.0.1.642547.3.227.99 .991.105054.0 Self [id number] Medicare [place] Medicare Primary [id number] 2.840.1.070822.3.227.99.991.909917.0 Self [id number] Medicaid [facility] Part B [id number] 2.840.1.091449.3.227.99 .991.530121.0 Self [id number] [place] Medicare Primary [id number] 2.840.1.710272.3.227.99.991.352660.0 Self [id number] [facility] [id number] 2.0.1.896804.3.227.99 .991.879768.0 Self [id number] [facility] [id number] 2.840.1.460479.3.227.99 .991.074777.0 Self [id number] [place] Medicare Primary [id number] 2.840.1.051821.3.227.99.991.665250.0 Self [id number] [place] [id number] 2.840.1.202516.3.227.99 .991.179129.0 Self [id number] [place] [id number] 2.840.1.613942.3.227.99 .991.254115.0 Self [id number] [place] Medicare Primary [id number] 2.0.1.770880.3.227.99.991.527918.0 Self [id number] Medicare [place] Medicare Primary [id number] 2.0.1.091608.3.227.99.991.687196.0 Self [id number] [place] [id number] 2.0.1.396869.3.227.99 .991.457681.0 Self [id number] [place] Medicare Primary [id number] 2.840.1.579503.3.227.99.991.571707.0 Self [id number] Medicare [place] Medicare Primary [id number] 2.0.1.625538.3.227.99.991.693642.0 Self [id number] MEDICARE PART A -O/P [id number] 18 [id number] MEDICARE [id number] SP [id number] [id number] EMEDNY [id number] SP [id number] SELF PAY ONLY [id number] SP [id number] MEDICARE C [id number] S [id number] [id number] MEDICAID M [id number] S [id number] MEDICAID [id number] SP [id number] Medicare Dme Supplies Medigap Part B [id number] Self [id number] Medicare Dme Supplies Medigap Part B [id number] 2.16840.1.063291.3.227.99.991.516579.0 Self [id number] Medicare Dme Supplies Medigap Part B [id number] 2.16840.1.896335.3.227.99.991.433394.0 Self [id number] Medicare Dme Supplies Medigap Part B [id number] 2.16840.1.415063.3.227.99.991.894319.0 Self [id number] Medicare Dme Supplies Medigap Part B [id number] 2.16840.1.431568.3.227.99.991.459053.0 Self [id number] MEDICARE C [id number] S [id number] Medicare Dme Supplies Medigap Part B [id number] 2.840.1.056484.3.227.99.991.305420.0 Self [id number] Medicare Dme Supplies Medigap Part B [id number] 2.840.1.329524.3.227.99.991.779299.0 Self [id number] Medicare Dme Supplies Medigap Part B [id number] 2.16840.1.220092.3.227.99.991.832362.0 Self [id number] Medicare Dme Supplies Medigap Part B [id number] 2.840.1.926731.3.227.99.991.317643.0 Self [id number] Medicare Dme Supplies Medigap Part B [id number] 2.16840.1.381435.3.227.99.991.464354.0 Self [id number] MEDICARE [id number] SP [id number] A Medicare Dme Supplies Medigap Part B [id number] 2.16840.1.556196.3.227.99.991.150406.0 Self [id number] Medicare Dme Supplies Medigap Part B [id number] 2.840.1.700489.3.227.99.991.239411.0 Self [id number] Medicare Dme Supplies Medigap Part B [id number] 2.16.8[id number] Self [id number] Medicare Dme Supplies Medigap Part B [id number] Self [id number] MEDICAID -O/P [id number] [facility] MEDICAID [id number] SP [id number] B Problems, Conditions, and Diagnoses Code Display Name Description Problem Type Effective Dates Data Source(s) G43.709 [id number] Chronic migraine Problem 03/17/2021 12:00:00 AM EDT eC ([facility]) G43.009 [id number] Migraine without aur a, not intractable, without status migrainosus Problem 01/21/2021 12:00:00 AM EDT eC1 ([facility]) G56.22 Lesion of ulnar nerve Lesion of ulnar nerve Problem 12/16/2020 12:00:00 AM EDT MED[facility] ([facility] ) G56.03 Bilateral carpal tunnel syndrome Bilateral carpa l tunnel syndrome Problem 12/16/2020 12:00:00 AM EDT [facility] ([facility] ) Surgeries/Procedures Procedure Description Date Indications Data Source(s) Completion of procedural visit when meets criteria 03/17/2021 12:00:00 AM EDT eCW ([facility]) OFFICE OUTPATIENT VISIT 15 MINUTES 02/04/2021 12:00:00 AM EDT MED[facility] ([facility] ) OFFICE OUTPATIENT VISIT 25 MINUTES 02/04/2021 12:00:00 AM EDT MED[facility] ([facility] ) Needle electromyography, each extremity, with related paraspinal areas, when performed, done with nerve conduction, amplitude and latency/velocity study; complete, five or more muscles studied, innervated by three or more nerves or four or more spinal levels (list separately in addition to the code for primary procedure). 11/03/2020 12:00:00 AM EDT MEDEN T ([facility] ) Needle electromyography, each extremity, with related paraspinal areas, when performed, done with nerve conduction, amplitude and latency/velocity study; complete, five or more muscles studied, innervated by three or more nerves or four or more spinal levels (list separately in addition to the code for primary procedure). 11/03/2020 12:00:00 AM EDT MEDEN T ([facility] ) Nerve Conduction 9-10 Studies 11/03/2020 12:00:00 AM E DT MEDENT ([facility] ) CHEMODNRVTJ MUSC MUSC INNERVATED FACIAL NRV 10/27/2020 12:00:00 AM EDT MED[facility] ([facility] ) CHEMODNRVTJ MUSC MUSC INNERVATED FACIAL NRV 08/29/2020 12:00:00 AM EST MED[facility] ([facility] ) CHEMODNRVTJ MUSC MUSC INNERVATED FACIAL NRV 05/22/2020 12:00:00 AM EDT MEDENT ([facility], ) THERAPEUTIC PX 1/> AREAS EACH 15 MIN EXERCISES 12:00:00 AM EDT MEDENT ([facility] ) MANUAL THERAPY TQS 1/> REGIONS EACH 15 MINUTES 12:00:00 AM EDT MED[facility] ([facility] ) THERAPEUTIC PX 1/> AREAS EACH 15 MIN EXERCISES 12:00:00 AM EDT MEDENT ([facility] ) MANUAL THERAPY TQS 1/> REGIONS EACH 15 MINUTES 12:00:00 AM EDT MEDENT ([facility] ) THERAPEUTIC PX 1/> AREAS EACH 15 MIN EXERCISES 12:00:00 AM EDT MEDENT ([facility] ) MANUAL THERAPY TQS 1/> REGIONS EACH 15 MINUTES 12:00:00 AM EDT MEDENT ([facility] ) THERAPEUTIC PX 1/> AREAS EACH 15 MIN EXERCISES 12:00:00 AM EDT MEDENT ([facility] ) MANUAL THERAPY TQS 1/> REGIONS EACH 15 MINUTES 12:00:00 AM EDT MEDENT ([facility] ) MANUAL THERAPY TQS 1/> REGIONS EACH 15 MINUTES 12:00:00 AM EDT MEDENT ([facility] ) THERAPEUTIC PX 1/> AREAS EACH 15 MIN EXERCISES 12:00:00 AM EDT MEDENT ([facility] ) THERAPEUTIC PX 1/> AREAS EACH 15 MIN EXERCISES 12:00:00 AM EDT MED[facility] ([facility] ) MANUAL THERAPY TQS 1/> REGIONS EACH 15 MINUTES 12:00:00 AM EDT MED[facility] ([facility] ) Physical Therapy Eval - Low Complexity 04/16/2020 12:0 0:00 AM EDT MED[facility] ([facility] ) INJECTION 1 TENDON SHEATH/LIGAMENT APONEUROSIS 12:00:00 AM EDT MED[facility] ([facility] ) RADEX ANKLE COMPLETE MINIMUM 3 VIEWS 04/03/2020 12:00: 00 AM EDT MED[facility] ([facility] ) RADEX FOOT COMPLETE MINIMUM 3 VIEWS 04/03/2020 12:00:0 0 AM EDT MED[facility] ([facility] ) Results ID Date Data Source [id number] 06/24/2020 12:00:00 PM EST [facility] Name Value Range Interpretation Code Description Data Viktoria rce(s) Supporting Document(s) SARS coronavirus 2 RNA [facility] This lab was ordered by [facility] and reported by [facility]. Procedure Social History Code Duration Value Status Description Data Source(s ) Smoking 03/17/2021 12:00:00 AM EDT Never Smoker completed Never S moker eCW1 ([facility]) Smoking 01/21/2021 12:00:00 AM EDT Never Smoker completed Never S moker eCW1 ([facility]) Smoking 01/21/2021 12:00:00 AM EDT Never Smoker completed Never S moker eCW1 ([facility]) Vital Signs ID Date Data Source UNK Name Value Range Interpretation Code Description Data Source(s) Body weight 203.8 [lb_av] 203.8 [lb_av] eCW1 ([facility]) Body weight 92.44 kg 92.44 kg eCW1 ([facility]) Body height 64 [in_i] 64 [in_i] eCW1 ([facility]) Body mass index (BMI) [Ratio] 34.98 kg/m2 34.98 kg/m2 eCW1 ([facility]) Heart rate 78 /min 78 /min eCW1 ([facility]) Respiratory rate 18 /min 18 /min eCW1 ([facility]) Body temperature 97.3 [degF] 97.3 [degF] eCW1 ( [facility]) Systolic blood pressure 142 mm[Hg] 142 mm[Hg] e CW1 ([facility]) Diastolic blood pressure 82 mm[Hg] 82 mm[Hg] eCW1 ([facility]) Body weight 197.6 [lb_av] 197.6 [lb_av] eCW1 ([facility]) Body height 64 [in_i] 64 [in_i] eCW1 ([facility]) Body mass index (BMI) [Ratio] 33.91 kg/m2 33.91 kg/m2 eCW1 ([facility]) Heart rate 87 /min 87 /min eCW1 ([facility]) Respiratory rate 18 /min 18 /min eCW1 ([facility]) Body temperature 97.0 [degF] 97.0 [degF] eCW1 ( [facility]) Systolic blood pressure 147 mm[Hg] 147 mm[Hg] e CW1 ([facility]) Diastolic blood pressure 86 mm[Hg] 86 mm[Hg] eCW1 ([facility]) Patient Treatment Plan of Care Planned Activity Planned Date Details Description Data Source (s) onabotulinumtoxinA 100 UNT/ML Injectable Solution [Bot ox] 03/09/2021 12:00:00 AM EDT eCW1 ([facility])
--- NOTE | 2021-05-21 18:54 | REP ---
INDICATION: Coronavirus workup. COMPARISON: 08/25/2019 TECHNIQUE: Portable FINDINGS: The technique utilized in obtaining the radiograph has magnified the cardiac silhouette and accentuated the interstitial markings. The cardiomediastinal silhouette is within normal limits. The heart is not enlarged. Subtle patchy interstitial and possible early airspace opacities are seen bilaterally and representing a change from the prior exam. The pleural angles are sharp. The osseous structures are stable and intact. IMPRESSION: Evidence of early lung field opacities as described above. Suspicion for developing pneumonia. <Electronically signed by Alen Murphy > 05/21/21 [id number]
[2021-05-21 18:55] LABS: D-DIMER QUANT 1127.89 ng/ml (<500)
--- NOTE | 2021-05-21 19:15 | ECGEPIP ---
[facility] - ED Test Date: 2021-05-21 Pat Name: DALIA JIMENEZ Department: Room: - Gender: Female Epic Ambulatory Analyst: INNA : 1975 Requested By: Saima Macias PA-C Order Number: [id number] Reading MD: Maria Dolores Nelson Measurements Intervals [place] Rate: 95 P: 42 [place]: 122 QRS: 21 QRSD: 74 T: -2 QT: 334 QTc: 419 Interpretive Statements Normal sinus rhythm increased rate 08/26/19 Electronically Signed on 05-21-2021 19:15:23 EDT by Maria Dolores Nelson
[2021-05-21 19:16] LABS: ALBUMIN 3.6 GM/DL (3.2-5.2); ALT/SGPT 103 U/L (12-78); BILIRUBIN,DIRECT < 0.1 MG/DL (0.0-0.2); BILIRUBIN,TOTAL 0.5 MG/DL (0.2-1.0); BLOOD UREA NITROGEN 9 MG/DL (7-18); CALCIUM LEVEL 9.3 MG/DL (8.5-10.1); CARBON DIOXIDE LEVEL 28 MEQ/L (21-32); CHLORIDE LEVEL 101 MEQ/L (98-107); CK-MB VALUE MASS < 1.0 NG/ML (<3.6); CPK CREATINE PHOSPHOKINASE 130 U/L (26-192); CREATININE FOR GFR 0.64 MG/DL (0.55-1.30); GLOMERULAR FILTRATION RATE > 60.0 (>58); GLUCOSE, FASTING 90 MG/DL (70-100); MB/CK RELATIVE INDEX 0.77 (< OR =4); POTASSIUM SERUM 4.1 MEQ/L (3.5-5.1); SODIUM LEVEL 136 MEQ/L (136-145); TROPONIN I < 0.02 NG/ML (< 0.10)
[2021-05-21 19:22] LABS: RSV AMPLIFICATION NEGATIVE (NEGATIVE)
[2021-05-21 19:38] LABS: ABG BASE EXCESS 1.6 (-2.0-2.0); ABG HCO3 24.5 MEQ/L (22.0-26.0); ABG O2 SATURATION 91.9 % (95.0-99.0); ABG PARTIAL PRESSURE CO2 33.5 mmHg (35.0-45.0); ABG PARTIAL PRESSURE O2 61.6 mmHg (75.0-100.0); ABG STANDARD HCO3 25.8 MEQ/L (22.0-26.0); ABG TOTAL CO2 25.5 MEQ/L (22.0-29.0); ABG pH (ARTERIAL) 7.482 UNITS (7.350-7.450)
[2021-05-21] MEDS ORDERED: ISOVUE-370 76% 100ML VIAL As Ordered ONE (20:09)
[2021-05-21 20:30] LABS: HEMATOCRIT 43.4 % (36.0-47.0); HEMOGLOBIN 14.2 g/dl (12.0-15.5); MEAN CORPUSCULAR HEMOGLOBIN 29.5 pg (27.0-33.0); MEAN CORPUSCULAR HGB CONC 32.7 g/dl (32.0-36.5); PLATELET COUNT, AUTOMATED 179 10^3/uL (150-450); RED BLOOD COUNT 4.82 10^6/uL (4.00-5.40)
[2021-05-21] MEDS ORDERED: MOM 30ML SUSPENSION UDC PO PRN (20:30)
[2021-05-21] MEDS ORDERED: MAALOX 30 ML SUSP *UDC PO PRN (20:30)
[2021-05-21] MEDS ORDERED: ACETAMINOPHEN TAB 650MG DOSE (2X325MG) PO PRN (20:30)
--- OUTSIDE RECORDS SUMMARY | 2021-05-21 20:46 | CCD ---
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 If you continue you may have access to information: Regarding HIV / AIDS; Provided by facilities licensed or operated by the [facility] Office of Mental Health; or Provided by the [facility] Office for People With Developmental Disabilities. If such information is present, then the following [facility] mandated warning applies: This information has [...] law may result in a fine or fpc sentence or both. A general authorization for the release of medical or other information is NOT sufficient authorization for further disc losure. Family History Family Member Name Family Member Gender Family Member Status Date o f Status Description Data Source(s) Unknown Male Problem MEDENT ([facility]) Encounters Encounter Providers Location Date Indications Data Source(s ) (PN Botox) Botox [address] [place] [address] 03/17/2021 12:00:00 AM EDT eCW1 ([facility]) Unknown [address] [facility] [address] 03/09/2021 12:00:00 AM EDT eCW1 ([facility]) OFFICE OUTPATIENT VISIT 15 MINUTES Attender: Oscar Donovan MD P hysical Therapy 02/04/2021 01:45:00 PM EDT MEDENT ([facility]) [place] [address] [facility] [address] 01/21/2021 12:00:00 AM EDT eCW1 ([facility]) Unknown [address] [facility] [address] 12/18/2020 12:00:00 AM EDT eCW1 ([facility]) Outpatient Attender: Nargis Kay MD Main office - [place] 12/16/2020 02:45:00 PM EDT MEDENT ([facility]) Outpatient Attender: Nargis Kay MD Main office - [place] 07/16/2020 10:15:00 AM EST MEDENT ([facility]) Medications Medication Brand Name Start Date Product Form Dose Route Admi nistrative Instructions Pharmacy Instructions Status Indications Reaction Description Data Source(s) onabotulinumtoxinA 100 UNT/ML Injectable Solution [Bot ox] Botox 100 UNIT Botox 100 UNIT 03/09/2021 12:00:00 AM EDT active Botox 100 UNIT eCW1 ([facility]) onabotulinumtoxinA 100 UNT/ML Injectable Solution [Bot ox] Botox 100 UNIT Botox 100 UNIT 03/09/2021 12:00:00 AM EDT active Botox 100 UNIT eCW1 ([facility]) 10 mg 07/17/2020 12:00:00 AM EST tablet [...] 02/13/2020 12:00:00 AM EDT ORAL completed MEDENT ([facility] ) 600 mg 02/13/2020 12:00:00 [...] type / Coverage type Policy ID Covered constitution party ID Covered constitution party's relationship to sneed Policy Sneed Plan Information Medicare [place] Medicare Primary [id number] Self [id number] [place] [id number] .[id number] Self [id number] Medicare [place] Medicare Primary [id number] Self [id number] [place] [id number] [id number] .[id number] Self [id number] Medicare [place] Medicare Primary [id number] [id number] Self [id number] [place] [id number] 2.0.1.014570.3.227.99 .[id number] Self [id number] Medicare [place] Medicare Primary [id number] [id number] Self [id number] [place] [id number] 2.0.1.018597.3.227.99 .[id number] Self [id number] Medicare [place] Medicare Primary [id number] 2.0.1.938[id number] Self [id number] [place] [id number] 2.0.1.186083.3.227.99 .991.455146.0 Self [id number] [place] [id number] 2.0.1.152337.3.227.99 .991.846580.0 Self [id number] Medicare [place] Medicare Primary [id number] 2.0.1.116377.3.227.99.991.109300.0 Self [id number] [place] [id number] 2.840.1.819699.3.227.99 .991.595688.0 Self [id number] Medicare [place] Medicare Primary [id number] 2.840.1.868302.3.227.99.991.295934.0 Self [id number] Medicaid [facility] Part B [id number] 2.840.1.454216.3.227.99 .991.742667.0 Self [id number] Medicare [place] Medicare Primary [id number] 2.840.1.446810.3.227.99.991.166098.0 Self [id number] Medicaid [facility] Part B [id number] 2.0.1.091194.3.227.99 .991.255372.0 Self [id number] Medicare [place] Medicare Primary [id number] 2.0.1.361204.3.227.99.991.589946.0 Self [id number] Medicaid [facility] Part B [id number] 2.0.1.110397.3.227.99 .[id number] Self [id number] Medicare [place] Medicare Primary [id number] 2.840.1.641468.3.227.99.991.330671.0 Self [id number] Medicaid [facility] Part B [id number] 2.840.1.825006.3.227.99 .991.122945.0 Self [id number] Medicare [place] Medicare Primary [id number] 2.840.1.071737.3.227.99.991.311811.0 Self [id number] [facility] Part [facility] [id number] 2.0.1.606967.3.227.99 .[id number] Self [id number] [facility] [id number] 2.840.1.722458.3.227.99 .991.641334.0 Self [id number] Medicare [place] Medicare Primary [id number] 2.840.1.725164.3.227.99.991.803330.0 Self [id number] [place] [id number] 2.840.1.639526.3.227.99 .991.150179.0 Self [id number] [place] [id number] 2.840.1.573854.3.227.99 .991.719701.0 Self [id number] Medicare [place] Medicare Primary [id number] 2.0.1.854623.3.227.99.991.291459.0 Self [id number] Medicare [place] Medicare Primary [id number] 2.0.1.810910.3.227.99.991.272630.0 Self [id number] [place] [id number] 2.0.1.591636.3.227.99 .991.308979.0 Self [id number] Medicare [place] Medicare Primary [id number] 2.840.1.560400.3.227.99.991.100795.0 Self [id number] Medicare [place] Medicare Primary [id number] 2.0.1.453015.3.227.99.991.793728.0 Self [id number] MEDICARE PART A -O/P [id number] 18 [id number] MEDICARE [id number] SP [id number] [id number] SP [id number] SELF PAY ONLY [id number] SP [id number] MEDICARE C [id number] S [id number] [id number] MEDICAID M [id number] S [id number] MEDICAID [id number] SP [id number] Medicare Dme Supplies Medigap Part B [id number] Self [id number] Medicare Dme Supplies Medigap Part B [id number]231.0 Self [id number] Medicare Dme Supplies Medigap Part B [id number] Self [id number] Medicare Dme Supplies Medigap Part B [id number] Self [id number] Medicare Dme Supplies Medigap Part B [id number].991.073031.0 Self [id number] MEDICARE C [id number] S [id number] Medicare Dme Supplies Medigap Part B [id number] 2.840.1.930[id number] Self [id number] Medicare Dme Supplies Medigap Part B [id number] 2.840.1.083[id number] Self [id number] Medicare Dme Supplies Medigap Part B [id number] Self [id number] Medicare Dme Supplies Medigap Part B [id number] 2.840.1.067[id number] Self [id number] Medicare Dme Supplies Medigap Part B [id number] Self [id number] MEDICARE [id number] SP [id number] A Medicare Dme Supplies Medigap Part B [id number] Self [id number] Medicare Dme Supplies Medigap Part B [id number] [id number] Self [id number] Medicare Dme Supplies Medigap Part B [id number] Self [id number] Medicare Dme Supplies Medigap Part B [id number] Self [id number] MEDICAID -O/P [id number] [facility] MEDICAID [id number] SP [id number] B Problems, Conditions, and Diagnoses Code Display Name Description Problem Type Effective Dates Data Source(s) G43.709 [id number] Chronic migraine Problem 03/17/2021 12:00:00 AM EDT eC ([facility]) G43.009 [id number] Migraine without aur a, not intractable, without status migrainosus Problem 01/21/2021 12:00:00 AM EDT eC1 ([facility]) G56.22 Lesion of ulnar nerve Lesion of ulnar nerve Problem 12/16/2020 12:00:00 AM EDT MEDENT ([facility] ) G56.03 Bilateral carpal tunnel syndrome Bilateral carpa l tunnel syndrome Problem 12/16/2020 12:00:00 AM EDT [facility] ([facility] ) Surgeries/Procedures Procedure Description Date Indications Data Source(s) Completion of procedural visit when meets criteria 03/17/2021 12:00:00 AM EDT eCW ([facility]) OFFICE OUTPATIENT VISIT 15 MINUTES 02/04/2021 12:00:00 AM EDT MEDENT ([facility] ) OFFICE OUTPATIENT VISIT 25 MINUTES 02/04/2021 12:00:00 AM EDT MEDENT ([facility] ) Needle electromyography, each extremity, with related paraspinal areas, when performed, done with nerve conduction, amplitude and latency/velocity study; complete, five or more muscles studied, innervated by three or more nerves or four or more spinal levels (list separately in addition to the code for primary procedure). 11/03/2020 12:00:00 AM EDT MEDEN T ([facility] ) Needle electromyography, each extremity, with related paraspinal areas, when performed, done with nerve conduction, amplitude and latency/velocity study; complete, five or more muscles studied, innervated by three or more nerves or four or more spinal levels (list separately in addition to the code for primary procedure). 11/03/2020 12:00:00 AM EDT MEDEN T ([facility] ) Nerve Conduction 9-10 Studies 11/03/2020 12:00:00 AM E DT MEDENT ([facility] ) CHEMODNRVTJ MUSC MUSC INNERVATED FACIAL NRV 10/27/2020 12:00:00 AM EDT MEDENT ([facility] ) CHEMODNRVTJ MUSC MUSC INNERVATED FACIAL NRV 08/29/2020 12:00:00 AM EST MEDENT ([facility] ) CHEMODNRVTJ MUSC MUSC INNERVATED FACIAL NRV 05/22/2020 12:00:00 AM EDT MEDENT ([facility] ) THERAPEUTIC PX 1/> AREAS EACH 15 MIN EXERCISES 12:00:00 AM EDT MEDENT ([facility] ) MANUAL THERAPY TQS 1/> REGIONS EACH 15 MINUTES 12:00:00 AM EDT MEDENT ([facility] ) THERAPEUTIC PX 1/> AREAS EACH 15 MIN EXERCISES 12:00:00 AM EDT MEDENT ([facility] ) MANUAL THERAPY TQS 1/> REGIONS EACH 15 MINUTES 12:00:00 AM EDT MEDENT ([facility] ) THERAPEUTIC PX 1/> AREAS EACH 15 MIN EXERCISES 12:00:00 AM EDT MEDENT ([facility] ) MANUAL THERAPY TQS 1/> REGIONS EACH 15 MINUTES 12:00:00 AM EDT MEDENT ([facility] ) THERAPEUTIC PX 1/> AREAS EACH 15 MIN EXERCISES 12:00:00 AM EDT MEDENT ([facility] ) MANUAL THERAPY TQS 1/> REGIONS EACH 15 MINUTES 12:00:00 AM EDT MEDENT ([facility] ) MANUAL THERAPY TQS 1/> REGIONS EACH 15 MINUTES 12:00:00 AM EDT MEDENT ([facility] ) THERAPEUTIC PX 1/> AREAS EACH 15 MIN EXERCISES 12:00:00 AM EDT MEDENT ([facility] ) THERAPEUTIC PX 1/> AREAS EACH 15 MIN EXERCISES 12:00:00 AM EDT MEDENT ([facility] ) MANUAL THERAPY TQS 1/> REGIONS EACH 15 MINUTES 12:00:00 AM EDT MEDENT ([facility] ) Physical Therapy Eval - Low Complexity 04/16/2020 12:0 0:00 AM EDT MEDENT ([facility] ) INJECTION 1 TENDON SHEATH/LIGAMENT APONEUROSIS 12:00:00 AM EDT MEDENT ([facility] ) RADEX ANKLE COMPLETE MINIMUM 3 VIEWS 04/03/2020 12:00: 00 AM EDT MEDENT ([facility] ) RADEX FOOT COMPLETE MINIMUM 3 VIEWS 04/03/2020 12:00:0 0 AM EDT MEDENT ([facility] ) Results ID Date Data Source [id number] 06/24/2020 12:00:00 PM EST [facility] Name Value Range Interpretation Code Description Data Viktoria rce(s) Supporting Document(s) SARS coronavirus 2 RNA [facility] This lab was ordered by [facility] and reported by [facility]. Procedure Social History Code Duration Value Status Description Data Source(s ) Smoking 03/17/2021 12:00:00 AM EDT Never Smoker completed Never S moker eCW1 ([facility]) Smoking 01/21/2021 12:00:00 AM EDT Never Smoker completed Never S moker eCW1 ([facility]) Smoking 01/21/2021 12:00:00 AM EDT Never Smoker completed Never S moker eCW1 ([facility]) Vital Signs ID Date Data Source UNK Name Value Range Interpretation Code Description Data Source(s) Systolic blood pressure 142 mm[Hg] 142 mm[Hg] e CW1 ([facility]) Diastolic blood pressure 82 mm[Hg] 82 mm[Hg] eCW1 ([facility]) Body weight 203.8 [lb_av] 203.8 [lb_av] eCW1 ([facility]) Body weight 92.44 kg 92.44 kg eCW1 ([facility]) Body height 64 [in_i] 64 [in_i] eCW1 ([facility]) Body mass index (BMI) [Ratio] 34.98 kg/m2 34.98 kg/m2 eCW1 ([facility]) Heart rate 78 /min 78 /min eCW1 ([facility]) Respiratory rate 18 /min 18 /min eCW1 ([facility]) Body temperature 97.3 [degF] 97.3 [degF] eCW1 ( [facility]) Respiratory rate 18 /min 18 /min eCW1 ([facility]) Body weight 197.6 [lb_av] 197.6 [lb_av] eCW1 ([facility]) Body temperature 97.0 [degF] 97.0 [degF] eCW1 ( [facility]) Body height 64 [in_i] 64 [in_i] eCW1 ([facility]) Body mass index (BMI) [Ratio] 33.91 kg/m2 33.91 kg/m2 eCW1 ([facility]) Systolic blood pressure 147 mm[Hg] 147 mm[Hg] e CW1 ([facility]) Heart rate 87 /min 87 /min eCW1 ([facility]) Diastolic blood pressure 86 mm[Hg] 86 mm[Hg] eCW1 ([facility]) Patient Treatment Plan of Care Planned Activity Planned Date Details Description Data Source (s) onabotulinumtoxinA 100 UNT/ML Injectable Solution [Bot ox] 03/09/2021 12:00:00 AM EDT eCW1 ([facility])
[2021-05-21] MEDS: DOCUSATE SODIUM 100MG CAPSULE PO SCH (20:54)
[2021-05-21] MEDS: GABAPENTIN 300 MG CAP PO SCH (21:00)
[2021-05-21] MEDS: CitaloPRAM (CeleXA) 20 MG TAB PO SCH (21:00)
[2021-05-21] MEDS: PROPRANOLOL 10 MG TAB PO SCH (21:00)
[2021-05-21] MEDS: tiZANidine 4 MG TAB PO SCH (21:00)
[2021-05-21 21:03] LABS: INR 0.87; PROTHROMBIN TIME 12.2 SECONDS (12.7-14.5)
[2021-05-21 21:04] LABS: PARTIAL THROMBOPLASTIN TIME 21.5 SECONDS (25.9-37.0)
[2021-05-21 21:15] LABS: ALBUMIN 3.4 GM/DL (3.2-5.2); ALT/SGPT 97 U/L (12-78); BILIRUBIN,DIRECT < 0.1 MG/DL (0.0-0.2); BILIRUBIN,TOTAL 0.4 MG/DL (0.2-1.0); BLOOD UREA NITROGEN 8 MG/DL (7-18); CALCIUM LEVEL 8.7 MG/DL (8.5-10.1); CARBON DIOXIDE LEVEL 27 MEQ/L (21-32); CHLORIDE LEVEL 101 MEQ/L (98-107); GLOMERULAR FILTRATION RATE > 60.0 (>58); GLUCOSE, FASTING 90 MG/DL (70-100); POTASSIUM SERUM 4.1 MEQ/L (3.5-5.1); SODIUM LEVEL 137 MEQ/L (136-145); TOTAL PROTEIN 7.7 GM/DL (6.4-8.2)
[2021-05-21 21:15] LABS: FERRITIN 559 NG/ML (8-252); LDH LACTATE DEHYDROGENASE 543 U/L (84-246); MAGNESIUM LEVEL 1.9 MG/DL (1.8-2.4); NT-PRO BNP 13 PG/ML (<125)
[2021-05-21] MEDS: NS 1,000 ML IV SCH (21:15)
[2021-05-21 21:16] LABS: ATYPICAL LYMPH 3 % (0-5); LYMPHOCYTES 20 % (16-44); MONOCYTES 5 % (0-5); NEUTROPHILS 72 % (28-66); PLATELET CLUMPS SMALL AMT; PLATELET ESTIMATE NORMAL (NORMAL); SMUDGE CELLS 1+; TOXIC VACUOLATION 1+
[2021-05-21 21:17] LABS: TOXIC GRANULATION 1+
[2021-05-21] MEDS ORDERED: HOME MED LIST COMPLETE! XX SCH (21:20)
--- NOTE | 2021-05-21 21:58 | HPEPDOC ---
General Date of Admission May 21, 2021 at 20:28 Date of Service: May 21, 2021 Attending Physician: IKER LISA MD Chief Complaint The patient is a 45-year-old female admitted with a reason for visit of Acute Hypoxemic Respiratory Failure D/T Covid 19. History of Present Illness History of Present Illness: Ms. Posada is a pleasant 45 year old female who presented to the emergency department for persistent coughing and shortness of breath of two days duration. She started feeling ill one week prior and began experiencing subjective fevers, chills, body aches, diarrhea, non productive cough, headache, loss of taste and smell, and generalized fatigue. She has not been vaccinated for COVID and states that her 15 year old daughter was diagnosed with COVID in the last two weeks and had been quarantining at home until today. She presented to the ED today because she "could not catch" her breath and became so dizzy from coughing that she thought she might "pass out". She has not had much of an appetite for 2 days and feels thirsty. She denies any syncopal episodes, chest pain, or palpitations, and denies coughing up any mucous. While in the ED she tested positive for COVID and had imaging that was concerning for pneumonia. She was placed on 2L of oxygen and needed to be titrated up to 3L to maintain an O2 saturation of 94. Her vital signs were stable upon admission. Past medical history: Hypertension Migraines Arnold Chiari Malformation Past surgical history: Surgery to correct Arnold Chiari Malformation Hysterectomy Left knee surgery Left elbow surgery Surgery on left hand secondary to crush injury Social history: Patient denies using tobacco, alcohol, or illicit drugs Family history: -non contributory Allergies: -No known drug allergies Review of Systems: General: admits to fevers, chills, fatigue, body aches, dizziness, and loss of appetite. Denies loss of consciousness HEENT: admits to loss of taste and smell, denies swollen glands or vision changes Cardiovascular: denies chest pain or palpitation Pulmonary: admits to dry cough and shortness of breath Abdomen: admits to diarrhea, denies nausea, vomiting, blood in urine or stool Extremities: denies swelling of ankles or new skin rashes Physical examination: General: Ms. Posada is a pleasant female who is sitting in bed on her left side. She coughs intermittently during my examination and appears to be uncomfortable and diaphoretic. HEENT: PERRLA, EOMI, mucous membranes appear mildly dry but pink, no lymphadenopathy noted Cardiovascular: Regular rate and rhythm, no murmurs or gallops noted. Pulses 2+ throughout, capillary refill is <2 seconds Pulmonary: Air intake is reduced bilaterally, patient starts to cough when attempting to take deep breath, no rhonchi or wheezes appreciated. Abdomen: soft, positive bowel sounds, nontender to palpation in all four quadrants, no organomegaly Extremities: no edema noted Skin: skin is moist and warm. Tattoos present psych: patient is alert and oriented x 4 Imaging: CT angiography: 05/21/21 IMPRESSION: Scattered bilateral hazy and ground glass opacities. No pleural effusions. Probable bilateral multilobar infectious pne umonia. Covid pneumonia is of concern. No filling defects suspicious for pulmonary emboli are seen. There is no CT evidence of aortic dissection nor leakage. No aortic aneurysm is appreciated. Chest x-ray: 05/21/21: IMPRESSION: Evidence of early lung field opacities as described above. Suspicion for developing pneumonia. Assessment: Ms. Posada is a 45 year old female with past medical history of hypertension, migraines, and arnold chiari malformation who presented to the emergency department for persistent coughing and shortness of breath of two days duration. Upon presentation she tested positive for COVID and had imaging concerning for pneumonia. She became hypoxemic on 2L oxygen and was titrated up to 3L. She is being admitted for further treatment and monitoring of respiratory status. Plan: COVID Pneumonia -Patient tested positive for COVID with imaging results as above -Will trend inflammatory markers, CRP is elevated -D-dimer is elevated, CTA negative for pulmonary embolism -Procalcitonin is pending -Started ceftriaxone 1gm qd and azithromycin 500mg q day to cover CAP. May discontinue if procalcitonin is low, patient WBC wnl -Patient is requiring 3L oxygen for saturation of 94%. -Started remdesivir, will continue to monitor liver function -Started decadron 6mg -CURB-65 score is 0 low risk -Will gently hydrate patient at 80ml/hr x 2 bags Transaminitis -AST 99, ALT 103 -Ordered liver ultrasound, will likely be done in the AM -likely secondary to fatty liver -will continue to monitor while on remdesivir Hypoxemia -secondary to COVID pneumonia -Patient is currently on 3L O2 to maintain oxygen saturation of 94% -While on 2L she desaturated to the mid 80's. -Will continue to monitor Elevated D-Dimer -1127 -CTA was negative for pulmonary embolism -likely secondary to COVID infection Hypertension -continue propranolol Migraines Arnold Chiari Malformation DVT prophylaxis: -Continue lovenox per COVID protocol Disposition: The patient is currently stable on 3L of O2NC. Will continue to monitor her respiratory status and treat COVID 19 infection with remdesivir, decadron, and antibiotics (procalcitonin pending). Will monitor liver panel while on remdesivir and review results of liver u/s when available. Home Medications Scheduled Citalopram Hydrobromide (Citalopram HBr) 20 Mg Tablet, 20 MG PO QHS, (Reported) Gabapentin (Neurontin) 600 Mg Tablet, 600 MG PO TID, (Reported) Propranolol HCl (Propranolol HCl) 10 Mg Tablet, 10 MG PO BID, (Reported) Tizanidine HCl (Tizanidine HCl) 4 Mg Tablet, 8 MG PO QHS, (Reported) Allergies Coded Allergies: No Known Allergies (Unverified , 08/09/17) A-FIB/CHADSVASC A-FIB History Current/History of A-Fib/PAF?: No Current PO Anticoag Therapy: No Vital Signs Vital Signs Date Time Temp Pulse Resp B/P (MAP) Pulse Ox O2 Delivery O2 Flow Rate FiO2 05/21/21 20:15 96 23 93 3.0 05/21/21 20:10 Nasal Cannula 05/21/21 20:00 137/85 (102) 05/21/21 17:35 98.8 Laboratory Data Labs 24H Laboratory Tests 2 05/21/21 18:29: Prothrombin Time 12.2, Prothromb Time International Ratio 0.87, Activated Partial Thromboplast Time 21.5L, D-Dimer, Quantitative 1127.89H, Anion Gap 7L, Glomerular Filtration Rate > 60.0, Calcium Level 9.3, Magnesium Level 1.9, Ferritin 559H, Total Bilirubin 0.5, Direct Bilirubin < 0.1, Aspartate Amino Transf (AST/SGOT) 99H, Alanine Aminotransferase (ALT/SGPT) 103H, Alkaline Phosphatase 119H, Lactate Dehydrogenase 543H, Total Creatine Kinase 130, Creatine Kinase MB < 1.0, Creatine Kinase MB Relative Index 0.77, Troponin I < 0.02, C-Reactive Protein, Quantitative 11.30H, XW-Iit-G-Type Natriuretic Peptide 13, Total Protein 8.0, Albumin 3.6, Albumin/Globulin Ratio 0.8L, Coronavirus (COVID-19)(PCR) POSITIVEA, Influenza Type A (RT-PCR) NEGATIVE, Influenza Type B (RT-PCR) NEGATIVE, Respiratory Syncytial Virus (PCR) NEGATIVE 05/21/21 18:38: POC Lactate (Misc Panel) 1.04 05/21/21 19:18: Blood Gas Bicarbonate Standard 25.8, Arterial Blood pH 7.482H, Arterial Blood Partial Pressure CO2 33.5L, Arterial Blood Partial Pressure O2 61.6L, Arterial Blood Total CO2 25.5, Arterial Blood HCO3 24.5, Arterial Blood Base Excess 1.6, Arterial Blood Oxygen Saturation 91.9L 05/21/21 20:00: Anion Gap 9, Glomerular Filtration Rate > 60.0, Calcium Level 8.7, Total Bilirubin 0.4, Direct Bilirubin < 0.1, Aspartate Amino Transf (AST/SGOT) 95H, Alanine Aminotransferase (ALT/SGPT) 97H, Alkaline Phosphatase 116, C-Reactive Protein, Quantitative 10.70H, Total Protein 7.7, Albumin 3.4, Albumin/Globulin Ratio 0.8L, Neutrophils (%) (Auto) , Nucleated Red Blood Cells % (auto) 0.0, Neutrophils 72H, Lymphocytes (Manual) 20, Monocytes (Manual) 5, Atypical Ly mphocytes 3, Toxic Granulation 1+, Toxic Vacuolation 1+, Smudge Cells 1+, Platelet Estimate NORMAL, Clumped Platelets SMALL AMT CBC/BMP Laboratory Tests 05/21/21 18:29 05/21/21 20:00 Microbiology Microbiology 05/21/21 Respiratory Virus Panel (PCR) ([facility]) - Final, Complete SARS-CoV-2 (COVID 19) 05/21/21 Blood Culture, Received Pending Plan / VTE VTE Prophylaxis Ordered?: Yes GME ATTESTATION GME ATTESTATION My faculty preceptor for this patient encounter was physically present during the encounter and was fully available. All aspects of the patient interview, examination, medical decision making process, and medical care plan development were reviewed and approved by the faculty preceptor. The faculty preceptor is aware and concurs with the plan as stated in the body of this note and will attest to such by his/her cosignature. ATTENDING NOTE I, Wanda Lisa, have independently examined this patient and performed my own physical exam, as well as reviewed the documentation and edited where necessary. I have discussed in detail with the resident / student the findings and plan of treatment as documented by the resident / student and edited their note. I agree with their findings and treatment plan and have edited their documentation. I will continue to follow the patient during this hospital stay. MACRINA GABRIEL DO May 21, 2021 21:58 IKER LISA MD May 27, 2021 04:25
--- NOTE | 2021-05-21 22:32 | REPVR ---
PROCEDURE INFORMATION: Exam: CTA Chest with Contrast Exam date and time: 05/21/21 (8:30pm) Age: 45 years old Clinical indication: SOB. Elevated D-dimer. TECHNIQUE: Imaging protocol: Computed tomographic angiography of the chest with contrast. 3D rendering (Not supervised by radiologist): MIP and/or 3D reconstructed images were created by the technologist. Radiation optimization: All CT scans at this facility use at least one of these dose optimization techniques: automated exposure control; mA and/or kV adjustment per patient size (includes targeted exams where dose is matched to clinical indication); or iterative reconstruction. Contrast material: Isovue 370 Contrast volume: 75 ml Contrast route: IV COMPARISON: Portable CXR of 05/21/21 FINDINGS: Pulmonary arteries: Normal. No pulmonary emboli. Aorta: Unremarkable. No aortic aneurysm. No aortic dissection. Lungs: Scattered bilateral hazy and ground glass opacities. Some confluence posteriorly at and near the left lung base. No masses. Pleural spaces: Unremarkable. No pneumothorax. No pleural effusions. Heart: Unremarkable. No cardiomegaly. No pericardial effusion. Lymph nodes: Unremarkable. No enlarged lymph nodes. Bones/joints: Unremarkable. No acute fracture. Soft tissues: Unremarkable. Upper abdomen: Prominent spleen. IMPRESSION: Scattered bilateral hazy and ground glass opacities. No pleural effusions. Probable bilateral multilobar infectious pneumonia. Covid pneumonia is of concern. No filling defects suspicious for pulmonary emboli are seen. There is no CT evidence of aortic dissection nor leakage. No aortic aneurysm is appreciated. Electronically signed by: Naomie Abdi On 05/21/2021 22:32:19 PM
[2021-05-21] MEDS ORDERED: REMDESIVIR 200 MG in NS 250 ML IV ONE (23:00)
[2021-05-21] MEDS: ENOXAPARIN 40MG/0.4ML SYRINGE (J1650 PER 10MG) SC SCH (23:00)
[2021-05-22] VITALS (8 sets, daily range): BP systolic 115–160; BP diastolic 60–93; O2SAT 95–98
[2021-05-22] MEDS ORDERED: SODIUM CHLORIDE 0.9% INJ 10 ML SYR IV ONE (01:00)
[2021-05-22] MEDS ORDERED: cefTRIAXone SOD 1 GM in D5W MINI-BAG PLUS 50 ML IV SCH (02:00)
[2021-05-22] MEDS ORDERED: AZITHROMYCIN INJ 500 MG, VIAL MATE ADAPTER 1 EACH in NS 250 ML IV SCH (03:00)
[2021-05-22 07:31] LABS: HEMATOCRIT 40.5 % (36.0-47.0); HEMOGLOBIN 13.1 g/dl (12.0-15.5); MEAN CORPUSCULAR HEMOGLOBIN 29.3 pg (27.0-33.0); MEAN CORPUSCULAR HGB CONC 32.3 g/dl (32.0-36.5); MEAN CORPUSCULAR VOLUME 90.6 fl (80.0-96.0); PLATELET COUNT, AUTOMATED 161 10^3/uL (150-450); RED BLOOD COUNT 4.47 10^6/uL (4.00-5.40); WHITE BLOOD COUNT 4.8 10^3/uL (4.0-10.0)
[2021-05-22 07:53] LABS: ALBUMIN 2.8 GM/DL (3.2-5.2); ALT/SGPT 89 U/L (12-78); BILIRUBIN,TOTAL 0.3 MG/DL (0.2-1.0); BLOOD UREA NITROGEN 5 MG/DL (7-18); CALCIUM LEVEL 8.3 MG/DL (8.5-10.1); CARBON DIOXIDE LEVEL 27 MEQ/L (21-32); CHLORIDE LEVEL 105 MEQ/L (98-107); CREATININE FOR GFR 0.49 MG/DL (0.55-1.30); GLOMERULAR FILTRATION RATE > 60.0 (>58); GLUCOSE, FASTING 110 MG/DL (70-100); POTASSIUM SERUM 3.5 MEQ/L (3.5-5.1); SODIUM LEVEL 138 MEQ/L (136-145); TOTAL PROTEIN 7.2 GM/DL (6.4-8.2)
[2021-05-22 07:54] LABS: MAGNESIUM LEVEL 1.9 MG/DL (1.8-2.4)
[2021-05-22 08:24] LABS: ATYPICAL LYMPH 5 % (0-5); LYMPHOCYTES 12 % (16-44); MONOCYTES 6 % (0-5); NEUTROPHILS 75 % (28-66); PLATELET ESTIMATE NORMAL (NORMAL)
[2021-05-22] MEDS: GABAPENTIN 300 MG CAP PO SCH ×3 (09:29→20:56)
[2021-05-22] MEDS: NS 1,000 ML IV SCH (09:30)
[2021-05-22] MEDS: ENOXAPARIN 40MG/0.4ML SYRINGE (J1650 PER 10MG) SC SCH ×2 (09:30→20:57)
[2021-05-22] MEDS: DOCUSATE SODIUM 100MG CAPSULE PO SCH ×2 (09:30→20:57)
[2021-05-22] MEDS: PROPRANOLOL 10 MG TAB PO SCH ×2 (09:30→20:57)
--- NOTE | 2021-05-22 15:37 | IPNPDOC ---
Date Seen The patient was seen on 05/22/21. Progress Note SUBJECTIVE: The patient remains on 3 L nasal cannula. Complains of coughing but denies chest pain, chills, nausea, vomiting. OBJECTIVE: Physical examination: VS: Please see below General: AAOx 3, resting in bed HEENT: PERRLA, EOMI, mucous membranes appear mildly dry but pink, no lymphadeno fei noted Cardiovascular: Regular rate and rhythm, no murmurs or gallops noted. Pulmonary: decreasd aeration b/l , cough when attempting to take deep breath, no rhonchi or wheezes appreciated. Abdomen: soft, positive bowel sounds, nontender to palpation in all four quadrants, no organomegaly Extremities: no edema noted Skin: skin is moist and warm. Tattoos present psych: mood and affect appropriate Imaging: CT angiography: 05/21/21 IMPRESSION: Scattered bilateral hazy and ground glass opacities. No pleural effusions. Probable bilateral multilobar infectious pneumonia. Covid pneumonia is of concern. No filling defects suspicious for pulmonary emboli are seen. There is no CT evidence of aortic dissection nor leakage. No aortic aneurysm is appreciated. Chest x-ray: 05/21/21: IMPRESSION: Evidence of early lung field opacities as described above. Suspicion for developing pneumonia. Assessment: Ms. Posada is a 45 year old female with past medical history of hypertension, migraines, and arnold chiari malformation who presented to the emergency department for persistent coughing and shortness of breath of two days duration. Upon presentation she tested positive for COVID and had imaging concerning for pneumonia. She became hypoxemic on 2L oxygen and was titrated up to 3L. She is being admitted for further treatment and monitoring of respiratory status. Plan: Acute hypoxic respiratory failure 2/2 to COVID-19 -Remains on 3 LNC -Imaging above -D-dimer is elevated, CTA negative for pulmonary embolism -Procalcitonin low so abx stopped, low suspicion for superimposed PNA -c/w remdesivir, decadron, supplemental O2, precautions, IS -F/u COVID labs regularly Acute transaminitis -AST/ALT slightly improved today -will continue to monitor while on remdesivir -Daily CMP Hypertension -continue propranolol Migraines -Stable Arnold Chiari Malformation -Monitor for changes DVT prophylaxis: -Continue lovenox per COVID protocol Disposition: Currently inpatient status. Plan is hopefully home when medically improved. VS, I&O, 24H, Nicolas Vital Signs/I&O Vital Signs Date Time Temp Pulse Resp B/P (MAP) Pulse Ox O2 Delivery O2 Flow Rate FiO2 05/22/21 12:00 100.4 90 18 115/60 (78) 96 Nasal Cannula 3.0 I&O- Last 24 Hours up to 6 AM 05/22/21 06:00 Intake Total 400 ml Output Total 2 ml Balance 398 ml Laboratory Data 24H LABS Laboratory Tests 2 05/21/21 18:29: Prothrombin Time 12.2, Prothromb Time International Ratio 0.87, Activated Partial Thromboplast Time 21.5L, D-Dimer, Quantitative 1127.89H, Anion Gap 7L, Glomerular Filtration Rate > 60.0, Calcium Level 9.3, Magnesium Level 1.9, Ferritin 559H, Total Bilirubin 0.5, Direct Bilirubin < 0.1, Aspartate Amino Transf (AST/SGOT) 99H, Alanine Aminotransferase (ALT/SGPT) 103H, Alkaline Phosphatase 119H, Lactate Dehydrogenase 543H, Total Creatine Kinase 130, Creatine Kinase MB < 1.0, Creatine Kinase MB Relative Index 0.77, Troponin I < 0.02, C-Reactive Protein, Quantitative 11.30H, GF-Njg-H-Type Natriuretic Peptide 13, Total Protein 8.0, Albumin 3.6, Albumin/Globulin Ratio 0.8L, Coronavirus (COVID-19)(PCR) POSITIVEA, Influenza Type A (RT-PCR) NEGATIVE, Influenza Type B (RT-PCR) NEGATIVE, Respiratory Syncytial Virus (PCR) NEGATIVE 05/21/21 18:38: POC Lactate (Misc Panel) 1.04 05/21/21 19:18: Blood Gas Bicarbonate Standard 25.8, Arterial Blood pH 7.482H, Arterial Blood Partial Pressure CO2 33.5L, Arterial Blood Partial Pressure O2 61.6L, Arterial Blood Total CO2 25.5, Arterial Blood HCO3 24.5, Arterial Blood Base Excess 1.6, Arterial Blood Oxygen Saturation 91.9L 05/21/21 20:00: Anion Gap 9, Glomerular Filtration Rate > 60.0, Calcium Level 8.7, Total Bilirubin 0.4, Direct Bilirubin < 0.1, Aspartate Amino Transf (AST/SGOT) 95H, Alanine Aminotransferase (ALT/SGPT) 97H, Alkaline Phosphatase 116, C-Reactive Protein, Quantitative 10.70H, Total Protein 7.7, Albumin 3.4, Albumin/Globulin Ratio 0.8L, Neutrophils (%) (Auto) , Nucleated Red Blood Cells % (auto) 0.0, Neutrophils 72H, Lymphocytes (Manual) 20, Monocytes (Manual) 5, Atypical Lymphocytes 3, Toxic Granulation 1+, Toxic Vacuolation 1+, Smudge Cells 1+, Platelet Estimate NORMAL, Clumped Platelets SMALL AMT 05/21/21 20:29: Procalcitonin <0.05 05/22/21 06:42: Neutrophils (%) (Auto) , Nucleated Red Blood Cells % (auto) 0.0, Neutrophils 75H, Band Neutrophils 2, Lymphocytes (Manual) 12L, Monocytes (Manual) 6H, Atypical Lymphocytes 5, Red Blood Cell Morphology NORMAL, Platelet Estimate NORMAL, Anion Gap 6L, Glomerular Filtration Rate > 60.0, Calcium Level 8.3L, Magnesium Level 1.9, Total Bilirubin 0.3, Aspartate Amino Transf (AST/SGOT) 83H, Alanine Aminotransferase (ALT/SGPT) 89H, Alkaline Phosphatase 100, Total Protein 7.2, Albumin 2.8L, Albumin/Globulin Ratio 0.6L CBC/BMP Laboratory Tests 05/21/21 18:29 05/21/21 20:00 05/22/21 06:42 Microbiology Microbiology 05/21/21 Respiratory Virus Panel (PCR) ([facility]) - Final, Complete SARS-CoV-2 (COVID 19) 05/21/21 Blood Culture, Received Pending Jamila Read MD May 22, 2021 15:37
[2021-05-22] MEDS ORDERED: REMDESIVIR 100 MG in NS 250 ML IV SCH (20:40)
[2021-05-22] MEDS: CitaloPRAM (CeleXA) 20 MG TAB PO SCH (20:56)
[2021-05-22] MEDS: dexameTHASONE 4 MG/ML 1ML VIAL (J1100 PER 1MG) IV SCH (20:57)
[2021-05-22] MEDS: tiZANidine 4 MG TAB PO SCH (20:57)
[2021-05-22] MEDS ORDERED: SODIUM CHLORIDE 0.9% INJ 10 ML SYR IV SCH (21:40)
[2021-05-22] MEDS: REMDESIVIR 100 MG in NS 250 ML IV SCH (22:20)
[2021-05-23] VITALS (9 sets, daily range): BP systolic 100–131; BP diastolic 66–86; O2SAT 90–96
[2021-05-23] MEDS: SODIUM CHLORIDE 0.9% INJ 10 ML SYR IV SCH ×2 (00:05→23:37)
[2021-05-23 07:55] LABS: HEMATOCRIT 40.4 % (36.0-47.0); HEMOGLOBIN 13.1 g/dl (12.0-15.5); MEAN CORPUSCULAR HEMOGLOBIN 29.5 pg (27.0-33.0); MEAN CORPUSCULAR HGB CONC 32.4 g/dl (32.0-36.5); PLATELET COUNT, AUTOMATED 213 10^3/uL (150-450); RED BLOOD COUNT 4.44 10^6/uL (4.00-5.40); WHITE BLOOD COUNT 2.9 10^3/uL (4.0-10.0)
[2021-05-23 08:10] LABS: INR 1.02; PROTHROMBIN TIME 13.8 SECONDS (12.7-14.5)
[2021-05-23 08:11] LABS: PARTIAL THROMBOPLASTIN TIME 28.7 SECONDS (25.9-37.0)
[2021-05-23 08:29] LABS: ALBUMIN 2.7 GM/DL (3.2-5.2); ALT/SGPT 114 U/L (12-78); BILIRUBIN,DIRECT 0.1 MG/DL (0.0-0.2); BILIRUBIN,TOTAL 0.3 MG/DL (0.2-1.0); BLOOD UREA NITROGEN 8 MG/DL (7-18); CALCIUM LEVEL 8.7 MG/DL (8.5-10.1); CARBON DIOXIDE LEVEL 27 MEQ/L (21-32); CHLORIDE LEVEL 108 MEQ/L (98-107); CPK CREATINE PHOSPHOKINASE 47 U/L (26-192); CREATININE FOR GFR 0.48 MG/DL (0.55-1.30); FERRITIN 505 NG/ML (8-252); GLOMERULAR FILTRATION RATE > 60.0 (>58); GLUCOSE, FASTING 148 MG/DL (70-100); LDH LACTATE DEHYDROGENASE 388 U/L (84-246); NT-PRO BNP 63 PG/ML (<125); POTASSIUM SERUM 4.2 MEQ/L (3.5-5.1); SODIUM LEVEL 141 MEQ/L (136-145); TOTAL PROTEIN 6.5 GM/DL (6.4-8.2); TROPONIN I < 0.02 NG/ML (< 0.10)
[2021-05-23 08:52] LABS: ATYPICAL LYMPH 1 % (0-5); LYMPHOCYTES 25 % (16-44); MONOCYTES 3 % (0-5); NEUTROPHILS 56 % (28-66); PLATELET ESTIMATE NORMAL (NORMAL)
[2021-05-23] MEDS: DOCUSATE SODIUM 100MG CAPSULE PO SCH ×3 (09:00→21:35)
[2021-05-23] MEDS: ENOXAPARIN 40MG/0.4ML SYRINGE (J1650 PER 10MG) SC SCH ×2 (09:23→21:35)
[2021-05-23] MEDS: GABAPENTIN 300 MG CAP PO SCH ×3 (09:23→21:36)
[2021-05-23] MEDS: PROPRANOLOL 10 MG TAB PO SCH ×2 (09:25→21:36)
--- NOTE | 2021-05-23 20:12 | IPNPDOC ---
Date Seen The patient was seen on 05/23/21. Progress Note SUBJECTIVE: Increased O2 demand after exerting herself this morning, she remains on 10 L high flow O2 saturating at 94%. Still complains of coughing but denies chest pain, chills, nausea, vomiting. OBJECTIVE: Physical examination: VS: Please see below General: AAOx 3, resting in bed HEENT: PERRLA, EOMI, mucous membranes appear mildly dry but pink, no lymphadenopathy noted. Nasal cannula in place Cardiovascular: Regular rate and rhythm, no murmurs or gallops noted. Pulmonary: decreasd aeration b/l , cough when attempting to take deep breath, no rhonchi or wheezes appreciated. Abdomen: soft, positive bowel sounds, nontender to palpation in all four quadrants, no organomegaly Extremities: no edema noted Skin: skin is moist and warm. Tattoos present psych: mood and affect appropriate Imaging: CT angiography: 05/21/21 IMPRESSION: Scattered bilateral hazy and ground glass opacities. No pleural effusions. Probable bilateral multilobar infectious pneumonia. Covid pneumonia is of concern. No filling defects suspicious for pulmonary emboli are seen. There is no CT evidence of aortic dissection nor leakage. No aortic aneurysm is appreciated. Chest x-ray: 05/21/21: IMPRESSION: Evidence of early lung field opacities as described above. Suspicion for developing pneumonia. Assessment: Ms. Posada is a 45 year old female with past medical history of hypertension, migraines, and arnold chiari malformation who presented to the emergency department for persistent coughing and shortness of breath of two days duration. Upon presentation she tested positive for COVID and had imaging concerning for pneumonia. She became hypoxemic on 2L oxygen and was titrated up to 3L. She is being admitted for further treatment and monitoring of respiratory status. Plan: Acute hypoxic respiratory failure 2/2 to COVID-19 -Worsened today with exertion and currently on 10 L high flow O2, saturating 94% -Imaging above -D-dimer is elevated, CTA negative for pulmonary embolism -Procalcitonin low so abx stopped, low suspicion for superimposed PNA -c/w remdesivir, decadron, supplemental O2, precautions, IS -F/u COVID labs regularly Acute transaminitis -AST/ALT slightly more elevated today -will continue to monitor while on remdesivir -Daily CMP Hypertension -continue propranolol Migraines -Stable Arnold Chiari Malformation -Monitor for changes DVT prophylaxis: -Continue lovenox per COVID protocol Disposition: Currently inpatient status. Plan is hopefully home when medically improved. VS, I&O, 24H, Fishbone Vital Signs/I&O Vital Signs Date Time Temp Pulse Resp B/P (MAP) Pulse Ox O2 Delivery O2 Flow Rate FiO2 05/23/21 16:24 96 High Flow Cannula 10.0 05/23/21 16:22 97.2 71 24 131/86 (101) I&O- Last 24 Hours up to 6 AM 05/23/21 06:00 Intake Total 1966 ml Balance 1966 ml Laboratory Data 24H LABS Laboratory Tests 2 05/23/21 07:32: Neutrophils (%) (Auto) , Nucleated Red Blood Cells % (auto) 0.0, Neutrophils 56, Band Neutrophils 15H, Lymphocytes (Manual) 25, Monocytes (Manual) 3, Atypical Lymphocytes 1, Platelet Estimate NORMAL, Prothrombin Time 13.8, Prothromb Time International Ratio 1.02, Activated Partial Thromboplast Time 28.7, Fibrinogen 553H, Anion Gap 6L, Glomerular Filtration Rate > 60.0, Calcium Level 8.7, Ferritin 505H, Total Bilirubin 0.3, Direct Bilirubin 0.1, Aspartate Amino Transf (AST/SGOT) 103H, Alanine Aminotransferase (ALT/SGPT) 114H, Alkaline Phosphatase 115, Lactate Dehydrogenase 388H, Total Creatine Kinase 47, Troponin I < 0.02, AG-Eww-S-Type Natriuretic Peptide 63, Total Protein 6.5, Albumin 2.7L, Albumin/Globulin Ratio 0.7L, Procalcitonin <0.05 CBC/BMP Laboratory Tests 05/23/21 07:32 Microbiology Microbiology 05/21/21 Respiratory Virus Panel (PCR) ([facility]) - Final, Complete SARS-CoV-2 (COVID 19) 05/21/21 Blood Culture - Preliminary, Resulted No Growth after 48 hours. All Specime... Jamila Read MD May 23, 2021 20:12
[2021-05-23] MEDS: tiZANidine 4 MG TAB PO SCH (21:35)
[2021-05-23] MEDS: dexameTHASONE 4 MG/ML 1ML VIAL (J1100 PER 1MG) IV SCH (21:36)
[2021-05-23] MEDS: CitaloPRAM (CeleXA) 20 MG TAB PO SCH (21:36)
[2021-05-23] MEDS ORDERED: ALBUTEROL SULFATE 2.5 MG/0.5 ML INH NEB SOLN NEB PRN (23:00)
[2021-05-23] MEDS ORDERED: BENZONATATE 100MG CAPSULE PO PRN (23:00)
[2021-05-23] MEDS: REMDESIVIR 100 MG in NS 250 ML IV SCH (23:35)
[2021-05-23] MEDS: guaiFENesin ER 600 MG TAB PO SCH (23:36)
[2021-05-24] VITALS (9 sets, daily range): BP systolic 78–128; BP diastolic 52–74; O2SAT 92–99
[2021-05-24] MEDS: IPRATROPIUM 0.5MG/ALBUTEROL 2.5MG INH SOL UD 3ML (DUONEB) NEB SCH ×4 (02:00→20:49)
[2021-05-24 07:24] LABS: HEMATOCRIT 41.2 % (36.0-47.0); HEMOGLOBIN 13.2 g/dl (12.0-15.5); MEAN CORPUSCULAR HEMOGLOBIN 29.3 pg (27.0-33.0); MEAN CORPUSCULAR VOLUME 91.6 fl (80.0-96.0); PLATELET COUNT, AUTOMATED 274 10^3/uL (150-450)
[2021-05-24 07:34] LABS: ALBUMIN 2.8 GM/DL (3.2-5.2); ALT/SGPT 107 U/L (12-78); BILIRUBIN,TOTAL 0.3 MG/DL (0.2-1.0); BLOOD UREA NITROGEN 11 MG/DL (7-18); CALCIUM LEVEL 8.8 MG/DL (8.5-10.1); CARBON DIOXIDE LEVEL 28 MEQ/L (21-32); CHLORIDE LEVEL 108 MEQ/L (98-107); CREATININE FOR GFR 0.59 MG/DL (0.55-1.30); GLOMERULAR FILTRATION RATE > 60.0 (>58); GLUCOSE, FASTING 153 MG/DL (70-100); POTASSIUM SERUM 4.2 MEQ/L (3.5-5.1); SODIUM LEVEL 142 MEQ/L (136-145); TOTAL PROTEIN 6.6 GM/DL (6.4-8.2)
[2021-05-24] MEDS: DOCUSATE SODIUM 100MG CAPSULE PO SCH ×2 (08:04→20:48)
[2021-05-24 08:17] LABS: ATYPICAL LYMPH 4 % (0-5); LYMPHOCYTES 12 % (16-44); MONOCYTES 5 % (0-5); NEUTROPHILS 74 % (28-66); PLATELET ESTIMATE NORMAL (NORMAL)
[2021-05-24] MEDS: GABAPENTIN 300 MG CAP PO SCH ×3 (08:24→20:48)
[2021-05-24] MEDS: guaiFENesin ER 600 MG TAB PO SCH ×2 (08:25→20:49)
[2021-05-24] MEDS: ENOXAPARIN 40MG/0.4ML SYRINGE (J1650 PER 10MG) SC SCH ×2 (08:27→20:49)
--- NOTE | 2021-05-24 17:47 | IPNPDOC ---
Date Seen The patient was seen on 05/24/21. Progress Note SUBJECTIVE: Improved O2 on 6 L NC from 10 L NC. Coughing improving. Still complains of coughing but denies chest pain, chills, nausea, vomiting. OBJECTIVE: Physical examination: VS: Please see below General: AAOx 3, resting in bed HEENT: PERRLA, EOMI, mucous membranes appear mildly dry but pink, no lymphadenopathy noted. Nasal cannula in place Cardiovascular: Regular rate and rhythm, no murmurs or gallops noted. Pulmonary: decreasd aeration b/l , cough when attempting to take deep breath, no rhonchi or wheezes appreciated Abdomen: soft, positive bowel sounds, nontender to palpation in all four quadrants, no organomegaly Extremities: no edema noted Skin: skin is moist and warm. Tattoos present psych: mood and affect appropriate Imaging: CT angiography: 05/21/21 IMPRESSION: Scattered bilateral hazy and ground glass opacities. No pleural effusions. Probable bilateral multilobar infectious pneumonia. Covid pneumonia is of concern. No filling defects suspicious for pulmonary emboli are seen. There is no CT evidence of aortic dissection nor leakage. No aortic aneurysm is ap preciated. Chest x-ray: 05/21/21: IMPRESSION: Evidence of early lung field opacities as described above. Suspicion for developing pneumonia. Assessment: Ms. Posada is a 45 year old female with past medical history of hypertension, migraines, and arnold chiari malformation who [facility] to [facility] for persistent coughing and shortness of breath of two days duration. Upon presentation she tested positive for COVID and had imaging concerning for pneumonia. She became hypoxemic on 2L oxygen and was titrated up to 3L. She is being admitted for further treatment and monitoring of respiratory status. Plan: Acute hypoxic respiratory failure 2/2 to COVID-19 -improved today with exertion and currently on 6 L high flow O2, saturating 94% -Imaging above -D-dimer is elevated, CTA negative for pulmonary embolism -Procalcitonin low so abx stopped, low suspicion for superimposed PNA -c/w remdesivir, decadron, supplemental O2, precautions, IS -F/u COVID labs regularly Acute transaminitis -AST/ALT slightly improved -will continue to monitor while on remdesivir -Daily CMP Hypertension -continue propranolol Migraines -Stable Arnold Chiari Malformation -Monitor for changes DVT prophylaxis: -Continue lovenox per COVID protocol Disposition: Currently inpatient status. Plan is hopefully home when medically improved. VS, I&O, 24H, Fishbone Vital Signs/I&O Vital Signs Date Time Temp Pulse Resp B/P (MAP) Pulse Ox O2 Delivery O2 Flow Rate FiO2 05/24/21 16:04 93 High Flow Cannula 6.0 05/24/21 12:00 96.9 68 20 128/74 (92) I&O- Last 24 Hours up to 6 AM 05/24/21 06:00 Intake Total 1590 ml Output Total 350 ml Balance 1240 ml Laboratory Data 24H LABS Laboratory Tests 2 05/24/21 06:56: Neutrophils (%) (Auto) , Nucleated Red Blood Cells % (auto) 0.0, Neutrophils 74H, Band Neutrophils 5, Lymphocytes (Manual) 12L, Monocytes (Manual) 5, Atypical Lymphocytes 4, Platelet Estimate NORMAL, Anion Gap 6L, Glomerular Filtration Rate > 60.0, Calcium Level 8.8, Total Bilirubin 0.3, Aspartate Amino Transf (AST/SGOT) 71H, Alanine Aminotransferase (ALT/SGPT) 107H, Alkaline Phosphatase 109, Total Protein 6.6, Albumin 2.8L, Albumin/Globulin Ratio 0.7L CBC/BMP Laboratory Tests 05/24/21 06:56 Microbiology Microbiology 05/21/21 Respiratory Virus Panel (PCR) ([facility]) - Final, Complete SARS-CoV-2 (COVID 19) 05/21/21 Blood Culture - Preliminary, Resulted No Growth after 48 hours. All Specime... Jamila Read MD May 24, 2021 17:47
[2021-05-24] MEDS: tiZANidine 4 MG TAB PO SCH (20:48)
[2021-05-24] MEDS: CitaloPRAM (CeleXA) 20 MG TAB PO SCH (20:48)
[2021-05-24] MEDS: dexameTHASONE 4 MG/ML 1ML VIAL (J1100 PER 1MG) IV SCH (20:49)
[2021-05-24] MEDS ORDERED: PROCHLORPERAZINE 10MG/2ML VIAL (J0780 PER 1) IV PRN (21:05)
[2021-05-24] MEDS: REMDESIVIR 100 MG in NS 250 ML IV SCH (22:36)
[2021-05-25] VITALS (8 sets, daily range): BP systolic 100–127; BP diastolic 56–81; O2SAT 94–98
[2021-05-25] MEDS: SODIUM CHLORIDE 0.9% INJ 10 ML SYR IV SCH (00:15)
[2021-05-25] MEDS: IPRATROPIUM 0.5MG/ALBUTEROL 2.5MG INH SOL UD 3ML (DUONEB) NEB SCH ×4 (02:00→20:03)
[2021-05-25 07:44] LABS: INR 0.96; PROTHROMBIN TIME 13.2 SECONDS (12.7-14.5)
[2021-05-25 07:45] LABS: PARTIAL THROMBOPLASTIN TIME 32.6 SECONDS (25.9-37.0)
[2021-05-25 08:08] LABS: ALBUMIN 2.6 GM/DL (3.2-5.2); ALT/SGPT 102 U/L (12-78); BILIRUBIN,DIRECT 0.1 MG/DL (0.0-0.2); BILIRUBIN,TOTAL 0.4 MG/DL (0.2-1.0); BLOOD UREA NITROGEN 12 MG/DL (7-18); CALCIUM LEVEL 8.7 MG/DL (8.5-10.1); CARBON DIOXIDE LEVEL 27 MEQ/L (21-32); CHLORIDE LEVEL 108 MEQ/L (98-107); CPK CREATINE PHOSPHOKINASE 20 U/L (26-192); CREATININE FOR GFR 0.58 MG/DL (0.55-1.30); FERRITIN 332 NG/ML (8-252); GLOMERULAR FILTRATION RATE > 60.0 (>58); GLUCOSE, FASTING 151 MG/DL (70-100); LDH LACTATE DEHYDROGENASE 306 U/L (84-246); NT-PRO BNP 54 PG/ML (<125); POTASSIUM SERUM 3.9 MEQ/L (3.5-5.1); SODIUM LEVEL 142 MEQ/L (136-145); TOTAL PROTEIN 6.9 GM/DL (6.4-8.2); TROPONIN I < 0.02 NG/ML (< 0.10)
[2021-05-25] MEDS: DOCUSATE SODIUM 100MG CAPSULE PO SCH ×2 (09:00→20:31)
[2021-05-25] MEDS: GABAPENTIN 300 MG CAP PO SCH ×3 (09:19→20:31)
[2021-05-25] MEDS: ENOXAPARIN 40MG/0.4ML SYRINGE (J1650 PER 10MG) SC SCH (09:19)
[2021-05-25] MEDS: guaiFENesin ER 600 MG TAB PO SCH ×2 (09:19→20:31)
[2021-05-25 09:28] LABS: HEMATOCRIT 40.1 % (36.0-47.0); HEMOGLOBIN 12.7 g/dl (12.0-15.5); MEAN CORPUSCULAR HEMOGLOBIN 29.1 pg (27.0-33.0); MEAN CORPUSCULAR HGB CONC 31.7 g/dl (32.0-36.5); MEAN CORPUSCULAR VOLUME 91.8 fl (80.0-96.0); PLATELET COUNT, AUTOMATED 323 10^3/uL (150-450); RED BLOOD COUNT 4.37 10^6/uL (4.00-5.40); WHITE BLOOD COUNT 5.5 10^3/uL (4.0-10.0)
--- NOTE | 2021-05-25 18:30 | IPNPDOC ---
Date Seen The patient was seen on 05/25/21. Progress Note SUBJECTIVE: Remains on 6 L NC from 10 L NC. Still having desaturations with any movement. Denies chest pain, chills, nausea, vomiting. OBJECTIVE: Physical examination: VS: Please see below General: AAOx 3, resting in bed HEENT: PERRLA, EOMI, mucous membranes appear mildly dry but pink, no lymphadenopathy noted. Nasal cannula in place Cardiovascular: Regular rate and rhythm, no murmurs or gallops noted. Pulmonary: decreased aeration b/l , cough when attempting to take deep breath, no rhonchi or wheezes appreciated Abdomen: soft, positive bowel sounds, nontender to palpation in all four quadrants, no organomegaly Extremities: no edema noted Skin: skin is moist and warm. Tattoos present psych: mood and affect appropriate Imaging: CT angiography: 05/21/21 IMPRESSION: Scattered bilateral hazy and ground glass opacities. No pleural effusions. Probable bilateral multilobar infectious pneumonia. Covid pneumonia is of concern. No filling defects suspicious for pulmonary emboli are seen. There is no CT evidence of aortic dissection nor leakage. No aortic aneurysm is appreciated. Chest x-ray: 05/21/21: IMPRESSION: Evidence of early lung field opacities as described above. Suspicion for developing pneumonia. Assessment: Ms. Posada is a 45 year old female with past medical history of hypertension, migraines, and arnold chiari malformation who presented to the emergency department for persistent coughing and shortness of breath of two days duration. Upon presentation she tested positive for COVID and had imaging concerning for pneumonia. She became hypoxemic on 2L oxygen and was titrated up to 3L. She is being admitted for further treatment and monitoring of respiratory status. Plan: Acute hypoxic respiratory failure 2/2 to COVID-19 -Remains on 6 L high flow O2, saturating 94% -Imaging above -D-dimer is elevated, CTA negative for pulmonary embolism -Procalcitonin low so abx stopped, low suspicion for superimposed PNA -c/w remdesivir, decadron, supplemental O2, precautions, IS -F/u COVID labs regularly Acute transaminitis -AST/ALT slightly improved -will continue to monitor while on remdesivir -Daily CMP Hypotension likely 2/2 to propranolol -Hx of hypertension -BP dropped 72 systolic -continue holding propranolol Migraines -Holding propranolol 2/2 to hypotension -Stable Arnold Chiari Malformation -Monitor for changes DVT prophylaxis: -Continue lovenox Disposition: Currently inpatient status. Plan is hopefully home when medically improved. VS, I&O, 24H, Fishbone Vital Signs/I&O Vital Signs Date Time Temp Pulse Resp B/P (MAP) Pulse Ox O2 Delivery O2 Flow Rate FiO2 05/25/21 14:24 96.4 70 18 113/67 (82) 96 High Flow Cannula 6.0 I&O- Last 24 Hours up to 6 AM 05/25/21 06:00 Intake Total 1120 ml Output Total 600 ml Balance 520 ml Laboratory Data 24H LABS Laboratory Tests 2 05/25/21 07:13: Prothrombin Time 13.2, Prothromb Time International Ratio 0.96, Activated Partial Thromboplast Time 32.6, Fibrinogen 449, Anion Gap 7L, Glomerular Filtration Rate > 60.0, Calcium Level 8.7, Ferritin 332H, Total Bilirubin 0.4, Direct Bilirubin 0.1, Aspartate Amino Transf (AST/SGOT) 58H, Alanine Aminotransferase (ALT/SGPT) 102H, Alkaline Phosphatase 99, Lactate Dehydrogenase 306H, Total Creatine Kinase 20L, Troponin I < 0.02, CA-Nzq-Z-Type Natriuretic Peptide 54, Total Protein 6.9, Albumin 2.6L, Albumin/Globulin Ratio 0.6L, Procalcitonin <0.05 05/25/21 07:37: Nucleated Red Blood Cells % (auto) 0.0 CBC/BMP Laboratory Tests 05/25/21 07:13 05/25/21 07:37 Microbiology Microbiology 05/21/21 Respiratory Virus Panel (PCR) ([facility]) - Final, Complete SARS-CoV-2 (COVID 19) 05/21/21 Blood Culture - Preliminary, Resulted No Growth after 72 hours. All specime... Jamila Read MD May 25, 2021 18:30
[2021-05-25] MEDS: CitaloPRAM (CeleXA) 20 MG TAB PO SCH (20:31)
[2021-05-25] MEDS: tiZANidine 4 MG TAB PO SCH (20:31)
[2021-05-25] MEDS: dexameTHASONE 4 MG/ML 1ML VIAL (J1100 PER 1MG) IV SCH (20:32)
[2021-05-25] MEDS: REMDESIVIR 100 MG in NS 250 ML IV SCH (22:48)
[2021-05-26] MEDS: SODIUM CHLORIDE 0.9% INJ 10 ML SYR IV SCH (00:14)
[2021-05-26] MEDS: IPRATROPIUM 0.5MG/ALBUTEROL 2.5MG INH SOL UD 3ML (DUONEB) NEB SCH ×4 (01:00→20:10)
[2021-05-26 02:00] VITALS: O2SAT 97
[2021-05-26 04:00] VITALS: BP 107/65; O2SAT 97
[2021-05-26 07:23] LABS: HEMOGLOBIN 12.4 g/dl (12.0-15.5); MEAN CORPUSCULAR HEMOGLOBIN 29.1 pg (27.0-33.0); MEAN CORPUSCULAR HGB CONC 31.8 g/dl (32.0-36.5); MEAN CORPUSCULAR VOLUME 91.5 fl (80.0-96.0); PLATELET COUNT, AUTOMATED 348 10^3/uL (150-450); RED BLOOD COUNT 4.26 10^6/uL (4.00-5.40); WHITE BLOOD COUNT 7.2 10^3/uL (4.0-10.0)
[2021-05-26 07:47] LABS: ALBUMIN 2.7 GM/DL (3.2-5.2); ALT/SGPT 84 U/L (12-78); BILIRUBIN,TOTAL 0.3 MG/DL (0.2-1.0); BLOOD UREA NITROGEN 12 MG/DL (7-18); CALCIUM LEVEL 8.9 MG/DL (8.5-10.1); CARBON DIOXIDE LEVEL 29 MEQ/L (21-32); CHLORIDE LEVEL 105 MEQ/L (98-107); CREATININE FOR GFR 0.53 MG/DL (0.55-1.30); GLOMERULAR FILTRATION RATE > 60.0 (>58); GLUCOSE, FASTING 141 MG/DL (70-100); POTASSIUM SERUM 4.2 MEQ/L (3.5-5.1); SODIUM LEVEL 139 MEQ/L (136-145); TOTAL PROTEIN 6.8 GM/DL (6.4-8.2)
[2021-05-26] MEDS: guaiFENesin ER 600 MG TAB PO SCH (08:47)
[2021-05-26] MEDS: DOCUSATE SODIUM 100MG CAPSULE PO SCH ×2 (08:47→20:18)
[2021-05-26] MEDS: GABAPENTIN 300 MG CAP PO SCH ×3 (08:47→20:17)
[2021-05-26] MEDS: ENOXAPARIN 40MG/0.4ML SYRINGE (J1650 PER 10MG) SC SCH (08:47)
[2021-05-26 13:59] VITALS: BP 138/55
--- NOTE | 2021-05-26 16:32 | IPNPDOC ---
Text Note Date of Service The patient was seen on 05/26/21. NOTE SUBJECTIVE: -Now down to 4 L NC -Does desaturate on exertion -Denies chest pain, chills, nausea, vomiting. OBJECTIVE: VS: Please see below General: AAOx 3, resting in bed, speaking to family on Ipad HEENT: PERRLA, EOMI, MMM, NC in place Cardiovascular: Regular rate and rhythm, no murmurs or gallops noted. Pulmonary: decreased aeration b/l , no rhonchi, crackles or wheezes appreciated Abdomen: soft, positive bowel sounds, nontender to palpation in all four quadrants, no organomegaly Extremities: no edema noted Skin: skin is moist and warm. Tattoos present psych: mood and affect appropriate Labs: reviewed, stable Imaging: CT angiography: 05/21/21 IMPRESSION: Scattered bilateral hazy and ground glass opacities. No pleural effusions. Probable bilateral multilobar infectious pneumonia. Covid pneumonia is of concern. No filling defects suspicious for pulmonary emboli are seen. There is no CT evidence of aortic dissection nor leakage. No aortic aneurysm is appreciated. Chest x-ray: 05/21/21: IMPRESSION: Evidence of early lung field opacities as described above. Suspicion for developing pneumonia. Assessment: 45 year old W with a history of hypertension, migraines, and arnold chiari malformation who presented to the emergency department for persistent coughing and shortness of breath of two days duration and was admitted for COVID pneumonia with acute hypoxemic respiratory failure. Plan: Acute hypoxic respiratory failure 2/2 to COVID-19 -Now on 4L NC -Imaging above -D-dimer was elevated, CTA negative for pulmonary embolism -Procalcitonin low so abx stopped, low suspicion for superimposed PNA -s/p 5d of remdesivir, continue decadron, supplemental O2, precautions, IS -F/u COVID labs per protocol Acute transaminitis -AST/ALT improved -will continue to monitor -Daily CMP Hypotension likely 2/2 to propranolol: resolved -Hx of hypertension -Will now restart propranolol Migraines -restart propranolol 2/2 to hypotension -Stable Arnold Chiari Malformation -Monitor for changes DVT prophylaxis: -Continue lovenox Disposition: Currently inpatient status. Plan is hopefully home when medically improved. VS,Thaie, I+O VS, Damonbone, I+O Laboratory Tests 05/26/21 06:49 Vital Signs Date Time Temp Pulse Resp B/P (MAP) Pulse Ox O2 Delivery O2 Flow Rate FiO2 05/26/21 13:59 97.4 77 18 138/55 (82) 96 High Flow Cannula 4.0 I&O- Last 24 Hours up to 6 AM 05/26/21 06:00 Intake Total 500 ml Output Total 250 ml Balance 250 ml ESTRELLA HENDRICKS MD May 26, 2021 16:32
[2021-05-26 20:00] VITALS: BP 133/77
[2021-05-26] MEDS: tiZANidine 4 MG TAB PO SCH (20:17)
[2021-05-26] MEDS: dexameTHASONE 4 MG/ML 1ML VIAL (J1100 PER 1MG) IV SCH (20:17)
[2021-05-26] MEDS: CitaloPRAM (CeleXA) 20 MG TAB PO SCH (20:18)
[2021-05-26] MEDS: PROPRANOLOL 10 MG TAB PO SCH (20:18)
[2021-05-26 21:00] VITALS: O2SAT 97
[2021-05-27] VITALS (10 sets, daily range): BP systolic 113–135; BP diastolic 72–81; O2SAT 95–100
[2021-05-27] MEDS: IPRATROPIUM 0.5MG/ALBUTEROL 2.5MG INH SOL UD 3ML (DUONEB) NEB SCH ×3 (02:00→14:00)
[2021-05-27 07:29] LABS: HEMATOCRIT 41.5 % (36.0-47.0); HEMOGLOBIN 13.2 g/dl (12.0-15.5); MEAN CORPUSCULAR HEMOGLOBIN 28.9 pg (27.0-33.0); MEAN CORPUSCULAR HGB CONC 31.8 g/dl (32.0-36.5); MEAN CORPUSCULAR VOLUME 90.8 fl (80.0-96.0); PLATELET COUNT, AUTOMATED 407 10^3/uL (150-450); RED BLOOD COUNT 4.57 10^6/uL (4.00-5.40); WHITE BLOOD COUNT 6.9 10^3/uL (4.0-10.0)
[2021-05-27 07:43] LABS: PROTHROMBIN TIME 13.6 SECONDS (12.7-14.5)
[2021-05-27 07:44] LABS: PARTIAL THROMBOPLASTIN TIME 32.5 SECONDS (25.9-37.0)
[2021-05-27 07:49] LABS: CPK CREATINE PHOSPHOKINASE 17 U/L (26-192); FERRITIN 346 NG/ML (8-252); LDH LACTATE DEHYDROGENASE 543 U/L (84-246); NT-PRO BNP 57 PG/ML (<125); TROPONIN I < 0.02 NG/ML (< 0.10)
[2021-05-27] MEDS: DOCUSATE SODIUM 100MG CAPSULE PO SCH (09:00)
[2021-05-27] MEDS: GABAPENTIN 300 MG CAP PO SCH ×2 (09:52→16:25)
[2021-05-27] MEDS: PROPRANOLOL 10 MG TAB PO SCH (09:53)
[2021-05-27] MEDS: ENOXAPARIN 40MG/0.4ML SYRINGE (J1650 PER 10MG) SC SCH (09:53)
--- NOTE | 2021-05-27 14:21 | IPNPDOC ---
Text Note Date of Service The patient was seen on 05/27/21. NOTE SUBJECTIVE: -Now down to 3.5 L NC -Continues to desaturate on exertion, encouraging her to be out of bed. -Denies chest pain, chills, nausea, vomiting. OBJECTIVE: VS: Please see below General: AAOx 3, resting in bed, speaking to family on Ipad HEENT: PERRLA, EOMI, MMM, NC in place Cardiovascular: Regular rate and rhythm, no murmurs or gallops noted. Pulmonary: decreased aeration b/l , no rhonchi, crackles or wheezes appreciated Abdomen: soft, positive bowel sounds, nontender to palpation in all four quadrants, no organomegaly Extremities: no edema noted Skin: skin is moist and warm. Tattoos present psych: mood and affect appropriate Labs: reviewed, stable Imaging: CT angiography: 05/21/21 IMPRESSION: Scattered bilateral hazy and ground glass opacities. No pleural effusions. Probable bilateral multilobar infectious pneumonia. Covid pneumonia is of concern. No filling defects suspicious for pulmonary emboli are seen. There is no CT evidence of aortic dissection nor leakage. No aortic aneurysm is appreciated. Chest x-ray: 05/21/21: IMPRESSION: Evidence of early lung field opacities as described above. Suspicion for developing pneumonia. Assessment: 45 year old W with a history of hypertension, migraines, and arnold chiari malformation who presented to the emergency department for persistent coughing and shortness of breath of two days duration and was admitted for COVID pneumonia with acute hypoxemic respiratory failure. Plan: Acute hypoxic respiratory failure 2/2 to COVID-19 -Now on 3.5L NC -Imaging above -D-dimer was elevated, CTA negative for pulmonary embolism -Procalcitonin was low so abx stopped, low suspicion for superimposed PNA -s/p 5d of remdesivir, continue decadron, supplemental O2, precautions, IS -F/u COVID labs per protocol Acute transaminitis -AST/ALT improved -will continue to monitor -Daily CMP Hypotension likely 2/2 to propranolol: resolved -Hx of hypertension -Will now restart propranolol Migraines -restarted propranolol 2/2 to hypotension -Stable Arnold Chiari Malformation -Monitor for changes DVT prophylaxis: -Continue lovenox Disposition: Currently inpatient status. Plan is hopefully home tomorrow AM, expecting that she will be off supplemental O2 VS,Fishbone, I+O VS, Fishbone, I+O Laboratory Tests 05/27/21 07:02 Vital Signs Date Time Temp Pulse Resp B/P (MAP) Pulse Ox O2 Delivery O2 Flow Rate FiO2 05/27/21 09:53 68 122/81 05/27/21 09:16 96 Nasal Cannula 3.5 05/27/21 04:00 98.0 17 I&O- Last 24 Hours up to 6 AM 05/27/21 06:00 Intake Total 1170 ml Output Total 0 ml Balance 1170 ml ESTRELLA HENDRICKS MD May 27, 2021 10:45
[2021-05-27] MEDS ORDERED: ALBU8.5H INH (15:28)
[2021-05-27] MEDS ORDERED: BENZ-18 PO (15:28)
[2021-05-27] MEDS ORDERED: ECOT81TA5 PO (15:29)
--- NOTE | 2021-05-27 18:55 | DS.PDOC ---
Discharge Summary General Date of Admission May 21, 2021 at 20:28 Date of Discharge 05/27/2021 Attending Physician: ESTRELLA HENDRICKS MD Discharge Summary PROCEDURES PERFORMED DURING STAY: None ADMITTING DIAGNOSES: Covid-19 PNA Hypoxemic respiratory failure DISCHARGE DIAGNOSES: Covid-19 PNA Acute hypoxemic respiratory failure Hypertension Migraines Arnold Chiari Malformation COMPLICATIONS/CHIEF COMPLAINT: Acute Hypoxemic Respiratory Failure D/T Covid 19. HISTORY OF PRESENT ILLNESS: 45 year old W who presented to the emergency department for persistent coughing and shortness of breath of two days duration. She started feeling ill one week prior and began experiencing subjective fevers, chills, body aches, diarrhea, non productive cough, headache, loss of taste and smell, and generalized fatigue. She has not been vaccinated for COVID and states that her 15 year old daughter was diagnosed with COVID in the last two weeks and had been quarantining at home until the day of presentation. She presented to the ED because she "could not catch" her breath and became so dizzy from coughing that she thought she might "pass out". She has not had much of an appetite for 2 days and felt thirsty. She denied any syncopal episodes, chest pain, or palpitations, and denies coughing up any mucous. HOSPITAL COURSE: While in the ED she tested positive for COVID and had imaging that was concerning for covid-19 pneumonia. She was placed on 2L of oxygen and needed to be titrated up to 3L to maintain an O2 saturation of 94. Her vital signs were otherwise stable. She was admitted for covid-19 PNA and acute hypoxemic respiratory failure. She was treated with 5d of remdesevir and 6d of dexamethasone and her course was c/b worsening hypoxemia to where she required vapotherm. She eventually improved and hypoxemia resolved. She is now being discharged home to continue self isolation until resolution of all symptoms and is to follow up with PCP within 7d. DISCHARGE MEDICATIONS: Please see below. ALLERGIES: Please see below. PHYSICAL EXAMINATION ON DISCHARGE: VITAL SIGNS: Please see below. General: AAOx 3, resting in bed, speaking to family on Ipad HEENT: PERRLA, EOMI, MMM, NC in place Cardiovascular: Regular rate and rhythm, no murmurs or gallops noted. Pulmonary: decreased aeration b/l , no rhonchi, crackles or wheezes appreciated Abdomen: soft, positive bowel sounds, nontender to palpation in all four quadrants, no organomegaly Extremities: no edema noted Skin: skin is moist and warm. Tattoos present psych: mood and affect appropriate LABORATORY DATA: Please see below. IMAGING: CT angiography: 05/21/21 IMPRESSION: Scattered bilateral hazy and ground glass opacities. No pleural effusions. Probable bilateral multilobar infectious pneumonia. Covid pneumonia is of concern. No filling defects suspicious for pulmonary emboli are seen. There is no CT evidence of aortic dissection nor leakage. No aortic aneurysm is appreciated. Chest x-ray: 05/21/21: IMPRESSION: Evidence of early lung field opacities as described above. Suspicion for developing pneumonia. PROGNOSIS: good ACTIVITY: As tolerated DIET: 2g sodium DISCHARGE PLAN: Home to follow up with PCP within 7d and self isolate until all symptoms have resolved. DISPOSITION: Home DISCHARGE INSTRUCTIONS: Home to follow up with PCP within 7d and self isolate until all symptoms have resolved. ITEMS TO FOLLOWUP ON ON OUTPATIENT: Resolution of covid-19 PNA DISCHARGE CONDITION: Stable TIME SPENT ON DISCHARGE: 40 minutes. Vital Signs/I&Os Vital Signs Date Time Temp Pulse Resp B/P (MAP) Pulse Ox O2 Delivery O2 Flow Rate FiO2 05/27/21 16:00 95 Room Air 05/27/21 14:03 2.0 05/27/21 14:00 96.0 65 20 135/74 (94) I&O- Last 24 Hours up to 6 AM 05/27/21 06:00 Intake Total 1170 ml Output Total 0 ml Balance 1170 ml Laboratory Data Labs 24H Laboratory Tests 2 05/27/21 07:02: Nucleated Red Blood Cells % (auto) 0.0, Prothrombin Time 13.6, Prothromb Time International Ratio 1.00, Activated Partial Thromboplast Time 32.5, Fibrinogen 474H, Ferritin 346H, Lactate Dehydrogenase 543H, Total Creatine Kinase 17L, Troponin I < 0.02, DM-Kxe-G-Type Natriuretic Peptide 57, Procalcitonin <0.05 CBC/BMP Laboratory Tests 05/27/21 07:02 Microbiology Microbiology 05/21/21 Respiratory Virus Panel (PCR) ([facility]) - Final, Complete SARS-CoV-2 (COVID 19) 05/21/21 Blood Culture - Final, Complete NO GROWTH AFTER 5 DAYS Discharge Medications Scheduled Aspirin (Ecotrin) 81 Mg Tablet.dr, 1 TAB PO DAILY for pain Citalopram Hydrobromide (Citalopram HBr) 20 Mg Tablet, 20 MG PO QHS, (Reported) Gabapentin (Neurontin) 600 Mg Tablet, 600 MG PO TID, (Reported) Propranolol HCl (Propranolol HCl) 10 Mg Tablet, 10 MG PO BID, (Reported) Tizanidine HCl (Tizanidine HCl) 4 Mg Tablet, 8 MG PO QHS, (Reported) Scheduled PRN Albuterol Sulfate (Albuterol Sulfate Hfa) 8.5 Gm Hfa.aer.ad, 2 PUFFS INH Q4HP PRN for SHORTNESS OF BREATH Benzonatate (Benzonatate) 100 Mg Capsule, 100 MG PO TIDP PRN for COUGH Allergies Coded Allergies: No Known Allergies (Unverified , 08/09/17) ESTRELLA HENDRICKS MD May 27, 2021 17:21
== END 2021-05-27 17:15 | disposition home or self-care (01) | DRG 177 ==
LOC: M ED 17:34 → M ED INP 20:28 → M 4MAIN 05-22 00:08
PROVIDERS: ADMIT Family Medicine; ATTEND Internal Medicine
PROC: XW033E5 Introduction of Remdesivir Anti-infective into Peripheral Vein, Percutaneous Approach, New Technology Group 5 (ICD-10-PCS; principal; 2021-05-21)
PROC: 3E0333Z Introduction of Anti-inflammatory into Peripheral Vein, Percutaneous Approach (ICD-10-PCS; 2021-05-21)
DX: U07.1 COVID-19 (principal); J12.82 Pneumonia due to coronavirus disease 2019; J96.01 Acute respiratory failure with hypoxia; R74.01 Elevation of levels of liver transaminase levels; I10 Essential (primary) hypertension; G43.909 Migraine, unspecified, not intractable, without status migrainosus; Z79.899 Other long term (current) drug therapy; Z87.728 Personal history of other specified (corrected) congenital malformations of nervous system and sense organs; I95.2 Hypotension due to drugs; T44.7X5A Adverse effect of beta-adrenoreceptor antagonists, initial encounter

== ENCOUNTER → 2021-07-29 | Outpatient (CLI) | payer MEDICARE, MEDICAID ==
[~2021-07-29] MED LIST changes: +ALBU8.5H INH; +BENZ-18 PO; +ECOT81TA5 PO
== END ==
LOC: M PAIN 14:45
PROVIDERS: ATTEND Nurse Practitioner Family
DX: G89.29 Other chronic pain (principal); G43.009 Migraine without aura, not intractable, without status migrainosus; F41.9 Anxiety disorder, unspecified; M54.2 Cervicalgia; M72.2 Plantar fascial fibromatosis; Z79.899 Other long term (current) drug therapy

== ENCOUNTER → 2021-11-25 | Outpatient (CLI) | payer MEDICARE, MEDICAID ==
[~2021-11-25] MED LIST changes: +TIZA10TA PO; -TIZA4TAB4 PO
== END ==
LOC: M LABSMTC 10:05
PROVIDERS: ATTEND Anesthesiology
DX: Z01.818 Encounter for other preprocedural examination (principal); Z11.52 Encounter for screening for COVID-19

== ENCOUNTER → 2022-01-25 | Outpatient (CLI) | payer MEDICARE, MEDICAID ==
[~2022-01-25] MED LIST changes: +CARA1TAB6 PO
== END ==
LOC: M PAIN 11:45
PROVIDERS: ATTEND Nurse Practitioner Family
DX: G43.709 Chronic migraine without aura, not intractable, without status migrainosus (principal); Z87.81 Personal history of (healed) traumatic fracture; F41.9 Anxiety disorder, unspecified; M72.2 Plantar fascial fibromatosis; Q07.00 Arnold-Chiari syndrome without spina bifida or hydrocephalus; Z79.899 Other long term (current) drug therapy; Z86.16 Personal history of COVID-19

== ENCOUNTER → 2022-02-05 | Outpatient (CLI) | payer MEDICARE, MEDICAID ==
[~2022-02-05] MED LIST changes: -CARA1TAB6 PO
== END ==
LOC: M WHC 10:43
PROVIDERS: ATTEND Pediatrics
DX: Z12.31 Encounter for screening mammogram for malignant neoplasm of breast (principal); N64.4 Mastodynia
CPT/HCPCS: 77066; G0279

== ENCOUNTER 2022-02-16 11:25 | Emergency (ER) | payer MEDICARE, MEDICAID ==
[~2022-02-16] VITALS: Ht 162.6 cm; Wt 87.7 kg
[2022-02-16 11:59] LABS: BASO % 0.3 % (0.0-1.0); EOS # 0.1 10^3/uL (0.0-0.5); EOS % 1.3 % (0.0-3.0); HEMATOCRIT 41.6 % (36.0-47.0); HEMOGLOBIN 13.8 g/dl (12.0-15.5); LYMPH # 2.2 10^3/uL (1.5-5.0); LYMPH % 30.3 % (24.0-44.0); MEAN CORPUSCULAR HEMOGLOBIN 29.4 pg (27.0-33.0); MEAN CORPUSCULAR HGB CONC 33.2 g/dl (32.0-36.5); MEAN CORPUSCULAR VOLUME 88.7 fl (80.0-96.0); MONO # 0.5 10^3/uL (0.0-0.8); MONO % 7.4 % (2.0-8.0); NEUTROPHILS # 4.3 10^3/uL (1.5-8.5); NEUTROPHILS % 60.3 % (36.0-66.0); PLATELET COUNT, AUTOMATED 225 10^3/uL (150-450); RED BLOOD COUNT 4.69 10^6/uL (4.00-5.40); WHITE BLOOD COUNT 7.1 10^3/uL (4.0-10.0)
[2022-02-16 12:31] LABS: CK-MB VALUE MASS 2.1 NG/ML (<3.6); MB/CK RELATIVE INDEX 1.2 (< OR =4)
[2022-02-16 12:32] LABS: ALT/SGPT 24 U/L (12-78); BILIRUBIN,DIRECT 0.2 MG/DL (0.0-0.2); BILIRUBIN,TOTAL 1.2 MG/DL (0.2-1.0); LIPASE 92 U/L (73-393); TOTAL PROTEIN 7.6 GM/DL (6.4-8.2)
[2022-02-16 13:34] LABS: CK-MB VALUE MASS 1.9 NG/ML (<3.6); MB/CK RELATIVE INDEX 1.12 (< OR =4)
[2022-02-16 14:02] LABS: BLOOD UREA NITROGEN 10 MG/DL (7-18); CALCIUM LEVEL 9.7 MG/DL (8.5-10.1); CARBON DIOXIDE LEVEL 28 MEQ/L (21-32); CHLORIDE LEVEL 104 MEQ/L (98-107); CREATININE FOR GFR 0.74 MG/DL (0.55-1.30); GLOMERULAR FILTRATION RATE > 60.0 (>58); GLUCOSE, FASTING 103 MG/DL (70-100); POTASSIUM SERUM 4.1 MEQ/L (3.5-5.1); SODIUM LEVEL 138 MEQ/L (136-145)
[2022-02-16] MEDS ORDERED: ISOVUE-370 76% 100ML VIAL As Ordered ONE (14:10)
[2022-02-16 15:31] LABS: CK-MB VALUE MASS 1.8 NG/ML (<3.6); MB/CK RELATIVE INDEX 1.17 (< OR =4)
[2022-02-16] MEDS ORDERED: CARA1TAB6 PO (15:58)
[2022-02-16 16:07] VITALS: BP 122/73
== END 2022-02-16 16:16 | disposition home or self-care (01) ==
LOC: EDBD 11:25 → M ED 11:25
DX: R07.9 Chest pain, unspecified (principal); R11.0 Nausea; I10 Essential (primary) hypertension; G43.909 Migraine, unspecified, not intractable, without status migrainosus; Q07.00 Arnold-Chiari syndrome without spina bifida or hydrocephalus; Z79.899 Other long term (current) drug therapy
CPT/HCPCS: 36415; 71045; 71275; 80048; 80076; 82550; 82553; 83690; 84484; 85025; 85379; 93005; 93041; 94760; 99285; Q9967

== ENCOUNTER 2022-04-24 18:10 | Emergency (ER) | payer MEDICAID, MEDICARE ==
[~2022-04-24] VITALS: Ht 162.6 cm; Wt 88.6 kg
[~2022-04-24 18:10] MED LIST changes: +CARA1TAB6 PO
[2022-04-24] MEDS ORDERED: ADV250INH (18:18)
[2022-04-24] MEDS ORDERED: ASPIRIN 81 MG CHEW TABLET PO ONE (18:35)
[2022-04-24] MEDS ORDERED: NITROGLYCERIN 0.4 MG SUBL TABLET SL PRN (18:35)
[2022-04-24 18:44] VITALS: BP 170/94
[2022-04-24 18:48] LABS: BASO % 0.3 % (0.0-1.0); EOS # 0.1 10^3/uL (0.0-0.5); EOS % 1.4 % (0.0-3.0); HEMATOCRIT 40.2 % (36.0-47.0); HEMOGLOBIN 13.3 g/dl (12.0-15.5); LYMPH # 2.8 10^3/uL (1.5-5.0); MEAN CORPUSCULAR HEMOGLOBIN 29.7 pg (27.0-33.0); MEAN CORPUSCULAR HGB CONC 33.1 g/dl (32.0-36.5); MEAN CORPUSCULAR VOLUME 89.7 fl (80.0-96.0); MONO # 0.6 10^3/uL (0.0-0.8); MONO % 8.3 % (2.0-8.0); NEUTROPHILS # 3.5 10^3/uL (1.5-8.5); NEUTROPHILS % 49.9 % (36.0-66.0); PLATELET COUNT, AUTOMATED 204 10^3/uL (150-450); RED BLOOD COUNT 4.48 10^6/uL (4.00-5.40)
[2022-04-24 19:03] LABS: INR 0.85
[2022-04-24 19:04] LABS: PARTIAL THROMBOPLASTIN TIME 28.8 SECONDS (25.9-37.0)
[2022-04-24 19:06] LABS: D-DIMER QUANT 572.69 ng/ml (<500)
[2022-04-24 19:27] LABS: CK-MB VALUE MASS 2.1 NG/ML (<3.6); MB/CK RELATIVE INDEX 1.16 (< OR =4)
[2022-04-24 19:30] LABS: BLOOD UREA NITROGEN 8 MG/DL (7-18); CARBON DIOXIDE LEVEL 25 MEQ/L (21-32); CHLORIDE LEVEL 107 MEQ/L (98-107); CREATININE FOR GFR 0.73 MG/DL (0.55-1.30); GLOMERULAR FILTRATION RATE > 60.0 (>58); GLUCOSE, FASTING 95 MG/DL (70-100); POTASSIUM SERUM 3.6 MEQ/L (3.5-5.1); SODIUM LEVEL 139 MEQ/L (136-145)
[2022-04-24 19:31] LABS: ALBUMIN 3.7 GM/DL (3.2-5.2); ALT/SGPT 23 U/L (12-78); BILIRUBIN,DIRECT 0.1 MG/DL (0.0-0.2); BILIRUBIN,TOTAL 0.5 MG/DL (0.2-1.0); CALCIUM LEVEL 9.1 MG/DL (8.5-10.1); FREE T4 0.76 NG/DL (0.76-1.46); LIPASE 122 U/L (73-393); TOTAL PROTEIN 7.4 GM/DL (6.4-8.2)
[2022-04-24] MEDS ORDERED: ISOVUE-370 76% 100ML VIAL As Ordered ONE (20:08)
[2022-04-24 21:19] LABS: CK-MB VALUE MASS 1.4 NG/ML (<3.6); MB/CK RELATIVE INDEX 0.86 (< OR =4)
[2022-04-24 21:52] VITALS: BP 166/83
== END 2022-04-24 22:23 | disposition home or self-care (01) ==
LOC: M ED 18:10
DX: R07.9 Chest pain, unspecified (principal); M72.2 Plantar fascial fibromatosis; G89.29 Other chronic pain; M54.9 Dorsalgia, unspecified; F41.9 Anxiety disorder, unspecified
CPT/HCPCS: 36415; 71046; 71275; 80048; 80076; 82550; 82553; 83690; 84439; 84443; 84484; 85025; 85379; 85610; 85730; 93005; 93041; 94760; 99285; Q9967

== ENCOUNTER 2022-04-25 13:21 | Emergency (ER) | payer MEDICARE, MEDICAID ==
[~2022-04-25] VITALS: Ht 162.6 cm; Wt 88.2 kg
[~2022-04-25 13:21] MED LIST changes: +ADV250INH
[2022-04-25 15:12] LABS: BASO % 0.4 % (0.0-1.0); EOS # 0.1 10^3/uL (0.0-0.5); EOS % 1.5 % (0.0-3.0); HEMATOCRIT 43.4 % (36.0-47.0); HEMOGLOBIN 13.9 g/dl (12.0-15.5); LYMPH # 1.9 10^3/uL (1.5-5.0); LYMPH % 27.7 % (24.0-44.0); MEAN CORPUSCULAR HEMOGLOBIN 29.1 pg (27.0-33.0); MEAN CORPUSCULAR VOLUME 90.8 fl (80.0-96.0); MONO # 0.5 10^3/uL (0.0-0.8); MONO % 7.8 % (2.0-8.0); NEUTROPHILS # 4.3 10^3/uL (1.5-8.5); NEUTROPHILS % 62.2 % (36.0-66.0); PLATELET COUNT, AUTOMATED 220 10^3/uL (150-450); RED BLOOD COUNT 4.78 10^6/uL (4.00-5.40); WHITE BLOOD COUNT 6.9 10^3/uL (4.0-10.0)
[2022-04-25 15:22] LABS: INR 0.88; PROTHROMBIN TIME 12.3 SECONDS (12.7-14.5)
[2022-04-25 15:23] LABS: PARTIAL THROMBOPLASTIN TIME 29.2 SECONDS (25.9-37.0)
[2022-04-25 15:42] LABS: BLOOD UREA NITROGEN 6 MG/DL (7-18); CALCIUM LEVEL 9.4 MG/DL (8.5-10.1); CARBON DIOXIDE LEVEL 29 MEQ/L (21-32); CHLORIDE LEVEL 106 MEQ/L (98-107); CREATININE FOR GFR 0.72 MG/DL (0.55-1.30); GLOMERULAR FILTRATION RATE > 60.0 (>58); GLUCOSE, FASTING 82 MG/DL (70-100); POTASSIUM SERUM 4.2 MEQ/L (3.5-5.1); SODIUM LEVEL 138 MEQ/L (136-145)
[2022-04-25 20:25] VITALS: BP 153/95
== END 2022-04-25 20:37 | disposition home or self-care (01) ==
LOC: M ED 13:21
DX: R55 Syncope and collapse (principal); S92.355A Nondisplaced fracture of fifth metatarsal bone, left foot, initial encounter for closed fracture; W10.9XXA Fall (on) (from) unspecified stairs and steps, initial encounter; F17.290 Nicotine dependence, other tobacco product, uncomplicated; Z79.899 Other long term (current) drug therapy

== ENCOUNTER → 2022-05-31 | Outpatient (CLI) | payer MEDICARE, MEDICAID | LOC: M RAD 12:31 | PROVIDERS: ATTEND Pediatrics | DX: M54.2 Cervicalgia (principal); M25.78 Osteophyte, vertebrae ==

== ENCOUNTER → 2022-06-21 | Outpatient (REF) | payer MEDICARE, MEDICAID ==
[2022-06-21 17:11] LABS: BASO % 0.5 % (0.0-1.0); EOS # 0.1 10^3/uL (0.0-0.5); EOS % 1.8 % (0.0-3.0); HEMATOCRIT 40.3 % (36.0-47.0); HEMOGLOBIN 12.9 g/dl (12.0-15.5); LYMPH # 1.8 10^3/uL (1.5-5.0); LYMPH % 42.5 % (24.0-44.0); MEAN CORPUSCULAR HEMOGLOBIN 29.5 pg (27.0-33.0); MONO # 0.5 10^3/uL (0.0-0.8); MONO % 10.4 % (2.0-8.0); NEUTROPHILS # 1.9 10^3/uL (1.5-8.5); NEUTROPHILS % 44.6 % (36.0-66.0); PLATELET COUNT, AUTOMATED 203 10^3/uL (150-450); RED BLOOD COUNT 4.38 10^6/uL (4.00-5.40); WHITE BLOOD COUNT 4.3 10^3/uL (4.0-10.0)
[2022-06-21 17:52] LABS: BLOOD UREA NITROGEN 9 MG/DL (9-23); CALCIUM LEVEL 8.4 MG/DL (8.5-10.1); CARBON DIOXIDE LEVEL 27 MMOL/L (20-31); CHLORIDE LEVEL 104 MMOL/L (98-107); CREATININE FOR GFR 0.59 MG/DL (0.55-1.30); GLOMERULAR FILTRATION RATE > 60.0 (>58); GLUCOSE, FASTING 98 MG/DL (60-100); POTASSIUM SERUM 4.9 MMOL/L (3.5-5.1); SODIUM LEVEL 140 MMOL/L (136-145)
[2022-06-21 21:42] LABS: HCG, SERUM QUALITATIVE NEGATIVE (NEGATIVE)
== END ==
LOC: M LAB REF 16:34
PROVIDERS: ATTEND Pediatrics
DX: Z01.89 Encounter for other specified special examinations (principal)

== ENCOUNTER → 2022-06-27 | Outpatient (CLI) | payer MEDICARE, MEDICAID | LOC: M LABSMTC 11:10 | PROVIDERS: ATTEND Neurological Surgery | DX: Z01.812 Encounter for preprocedural laboratory examination (principal); Z11.52 Encounter for screening for COVID-19 ==

== ENCOUNTER → 2022-08-29 | Outpatient (CLI) | payer MEDICARE, MEDICAID | LOC: M LABSMTC 09:50 | PROVIDERS: ATTEND Anesthesiology | DX: Z01.812 Encounter for preprocedural laboratory examination (principal); Z11.52 Encounter for screening for COVID-19 ==

== ENCOUNTER → 2022-09-02 | Outpatient (CLI) | payer MEDICARE, MEDICAID ==
[~2022-09-02] MED LIST changes: +BOTOX THERAPEUTIC 100 UNIT VIAL IM ONE
== END ==
LOC: M PAIN 13:30
PROVIDERS: ATTEND Anesthesiology
DX: G43.709 Chronic migraine without aura, not intractable, without status migrainosus (principal); F41.9 Anxiety disorder, unspecified; M54.2 Cervicalgia; M72.2 Plantar fascial fibromatosis; Z87.81 Personal history of (healed) traumatic fracture; Q07.00 Arnold-Chiari syndrome without spina bifida or hydrocephalus; Z79.899 Other long term (current) drug therapy
CPT/HCPCS: 64615; J0585

== ENCOUNTER → 2022-10-13 | Outpatient (CLI) | payer MEDICARE, MEDICAID ==
[~2022-10-13] MED LIST changes: -BOTOX THERAPEUTIC 100 UNIT VIAL IM ONE; +TOPI-254; -TOPI50TA9
== END ==
LOC: M PAIN 09:45
PROVIDERS: ATTEND Anesthesiology
DX: G89.29 Other chronic pain (principal); G43.009 Migraine without aura, not intractable, without status migrainosus; F41.9 Anxiety disorder, unspecified; M72.2 Plantar fascial fibromatosis; Z79.899 Other long term (current) drug therapy; Z86.16 Personal history of COVID-19

== ENCOUNTER 2022-10-18 14:49 | Emergency (ER) | payer MEDICARE, MEDICAID ==
[~2022-10-18] VITALS: Ht 162.6 cm; Wt 84.5 kg
[2022-10-18 15:34] LABS: BASO % 0.4 % (0.0-1.0); EOS # 0.1 10^3/uL (0.0-0.5); EOS % 1.1 % (0.0-3.0); HEMATOCRIT 40.3 % (36.0-47.0); HEMOGLOBIN 13.1 g/dl (12.0-15.5); LYMPH # 2.5 10^3/uL (1.5-5.0); LYMPH % 34.2 % (24.0-44.0); MEAN CORPUSCULAR HEMOGLOBIN 29.1 pg (27.0-33.0); MEAN CORPUSCULAR HGB CONC 32.5 g/dl (32.0-36.5); MEAN CORPUSCULAR VOLUME 89.6 fl (80.0-96.0); MONO # 0.5 10^3/uL (0.0-0.8); MONO % 7.1 % (2.0-8.0); NEUTROPHILS # 4.2 10^3/uL (1.5-8.5); NEUTROPHILS % 56.9 % (36.0-66.0); PLATELET COUNT, AUTOMATED 220 10^3/uL (150-450); WHITE BLOOD COUNT 7.3 10^3/uL (4.0-10.0)
[2022-10-18 15:58] LABS: BLOOD UREA NITROGEN 9 MG/DL (9-23); CALCIUM LEVEL 8.4 MG/DL (8.5-10.1); CARBON DIOXIDE LEVEL 26 MMOL/L (20-31); CHLORIDE LEVEL 106 MMOL/L (98-107); CK-MB VALUE MASS < 1.0 NG/ML (<3.6); CPK CREATINE PHOSPHOKINASE 106 U/L (34-145); CREATININE FOR GFR 0.62 MG/DL (0.55-1.30); GLOMERULAR FILTRATION RATE > 60.0 (>58); GLUCOSE, FASTING 92 MG/DL (60-100); MB/CK RELATIVE INDEX 0.94 (< OR =4); POTASSIUM SERUM 3.5 MMOL/L (3.5-5.1); SODIUM LEVEL 138 MMOL/L (136-145)
[2022-10-18] MEDS ORDERED: ISOVUE-370 76% 100ML VIAL As Ordered ONE (19:26)
[2022-10-18 21:49] VITALS: BP 130/75
== END 2022-10-18 22:07 | disposition home or self-care (01) ==
LOC: M ED 14:49
DX: R07.89 Other chest pain (principal); I10 Essential (primary) hypertension; G43.909 Migraine, unspecified, not intractable, without status migrainosus; Q07.00 Arnold-Chiari syndrome without spina bifida or hydrocephalus; Z79.899 Other long term (current) drug therapy
CPT/HCPCS: 36415; 71275; 80048; 82550; 82553; 84484; 85025; 93005; 99284; Q9967

== ENCOUNTER → 2022-11-02 | Outpatient (CLI) | payer MEDICARE, MEDICAID | LOC: M PAIN 10:45 | PROVIDERS: ATTEND Nurse Practitioner Family | DX: M79.12 Myalgia of auxiliary muscles, head and neck (principal); M79.18 Myalgia, other site; G43.909 Migraine, unspecified, not intractable, without status migrainosus; F41.9 Anxiety disorder, unspecified; M72.2 Plantar fascial fibromatosis; J45.909 Unspecified asthma, uncomplicated; Z86.16 Personal history of COVID-19; Z79.899 Other long term (current) drug therapy ==

== ENCOUNTER → 2022-12-07 | Outpatient (CLI) | payer MEDICARE, MEDICAID ==
[~2022-12-07] MED LIST changes: +BOTOX THERAPEUTIC 100 UNIT VIAL IM ONE
== END ==
LOC: M PAIN 09:00
PROVIDERS: ATTEND Anesthesiology
DX: G43.009 Migraine without aura, not intractable, without status migrainosus (principal); F41.9 Anxiety disorder, unspecified; M54.2 Cervicalgia; J45.909 Unspecified asthma, uncomplicated; M72.2 Plantar fascial fibromatosis; Z79.899 Other long term (current) drug therapy
CPT/HCPCS: 64615; J0585

== ENCOUNTER → 2023-01-03 | Outpatient (CLI) | payer MEDICARE, MEDICAID ==
[~2023-01-03] MED LIST changes: -BOTOX THERAPEUTIC 100 UNIT VIAL IM ONE; +CVS2500C PO; +MECL1TAB31 PO
== END ==
LOC: M PAIN 10:30
PROVIDERS: ATTEND Nurse Practitioner Family
DX: G43.009 Migraine without aura, not intractable, without status migrainosus (principal); G89.29 Other chronic pain; F41.9 Anxiety disorder, unspecified; M72.2 Plantar fascial fibromatosis; J45.909 Unspecified asthma, uncomplicated; Z79.899 Other long term (current) drug therapy

== ENCOUNTER → 2023-01-06 | Outpatient (CLI) | payer MEDICARE, MEDICAID ==
[~2023-01-06] MED LIST changes: +BUPIVACAINE HCL 0.25% 10ML VIAL As Ordered ONE; +BUPIVACAINE HCL 0.25% 30ML VIAL As Ordered ONE; -CVS2500C PO; -MECL1TAB31 PO; +NORCO, ANEXSIA 5/325MG TABLET (HYDROcodone/ACETAMINOPHEN) As Ordered ONE; +TRIAMCINOLONE ACETONIDE SUSP 40MG/ML 1ML VIAL As Ordered ONE; +diazePAM 2 MG TAB As Ordered ONE
== END ==
LOC: M PAIN 09:30
PROVIDERS: ATTEND Anesthesiology
DX: M79.12 Myalgia of auxiliary muscles, head and neck (principal); M79.18 Myalgia, other site; G43.909 Migraine, unspecified, not intractable, without status migrainosus; F41.9 Anxiety disorder, unspecified; J45.909 Unspecified asthma, uncomplicated; M72.2 Plantar fascial fibromatosis
CPT/HCPCS: 20553; J3301

== ENCOUNTER → 2023-01-11 | Outpatient (CLI) | payer OTHER, MEDICAID ==
[~2023-01-11] MED LIST changes: -BUPIVACAINE HCL 0.25% 10ML VIAL As Ordered ONE; -BUPIVACAINE HCL 0.25% 30ML VIAL As Ordered ONE; +CVS2500C PO; +MECL1TAB31 PO; -NORCO, ANEXSIA 5/325MG TABLET (HYDROcodone/ACETAMINOPHEN) As Ordered ONE; -TRIAMCINOLONE ACETONIDE SUSP 40MG/ML 1ML VIAL As Ordered ONE; -diazePAM 2 MG TAB As Ordered ONE
== END ==
LOC: M RAD 16:36
PROVIDERS: ATTEND Pediatrics
DX: R42 Dizziness and giddiness (principal); Q04.8 Other specified congenital malformations of brain; G93.89 Other specified disorders of brain

== ENCOUNTER → 2023-01-14 | Outpatient (CLI) | payer OTHER, MEDICAID ==
[2023-01-14 14:34] LABS: DRVV SCREEN 36.7 SEC
[2023-01-14 15:03] LABS: RHEUMATOID FACTOR QUANT < 3.5 IU/ML (<14)
[2023-01-14 15:05] LABS: FOLATE 17.7 NG/ML (>5.4)
[2023-01-14 15:06] LABS: VITAMIN B12 LEVEL 191 PG/ML (211-911)
[2023-01-21 16:09] LABS: ANCA-ATYPICAL <1:20 titer (Neg:<1:20); ANTI THROMBIN 3 ANTIGEN IMMUNO 109 % (72-124); ANTI THROMBIN 3 FUNCT ACTIVITY 105 % (75-135); ANTINUCLEAR ANTIBODIES DIRECT Negative (Negative); CARDIOLIPIN IGA ANTIBODY <9 APL U/mL (0-11); CARDIOLIPIN IGG ANTIBODY <9 GPL U/mL (0-14); CARDIOLIPIN IGM ANTIBODY <9 MPL U/mL (0-12); CYTOPLASMIC NEUTROP AB ANCA-C <1:20 titer (Neg:<1:20); PERINUCLEAR AB ANCA-P <1:20 titer (Neg:<1:20); PROTEIN C FUNCTIONAL ACTIVITY 171 % (73-180); PROTEIN S FUNCTIONAL ACTIVITY 78 % (63-140); VITAMIN B1 LEVEL WHOLE BLOOD 78.2 nmol/L (66.5-200.0); VITAMIN E(ALPHA TOCOPHEROL) 7.2 mg/L (7.0-25.1); VITAMIN E(GAMMA TOCOPHEROL) 1.2 mg/L (0.5-5.5)
== END ==
LOC: M LAB 13:18
PROVIDERS: ATTEND Psychiatry & Neurology Neurology
DX: H81.4 Vertigo of central origin (principal); I63.9 Cerebral infarction, unspecified

== ENCOUNTER 2023-01-17 12:50 | Emergency (ER) | payer OTHER, MEDICAID ==
[~2023-01-17] VITALS: Ht 162.6 cm; Wt 82.3 kg
[~2023-01-17 12:50] MED LIST changes: -CVS2500C PO; -MECL1TAB31 PO
[2023-01-17 12:53] VITALS: TEMP 98.3
[2023-01-17 14:29] LABS: BASO % 0.4 % (0.0-1.0); EOS # 0.1 10^3/uL (0.0-0.5); EOS % 0.9 % (0.0-3.0); HEMATOCRIT 40.4 % (36.0-47.0); HEMOGLOBIN 13.4 g/dl (12.0-15.5); LYMPH # 2.7 10^3/uL (1.5-5.0); LYMPH % 29.2 % (24.0-44.0); MEAN CORPUSCULAR HEMOGLOBIN 29.6 pg (27.0-33.0); MEAN CORPUSCULAR HGB CONC 33.2 g/dl (32.0-36.5); MEAN CORPUSCULAR VOLUME 89.2 fl (80.0-96.0); MONO # 0.7 10^3/uL (0.0-0.8); MONO % 7.5 % (2.0-8.0); NEUTROPHILS # 5.6 10^3/uL (1.5-8.5); NEUTROPHILS % 61.4 % (36.0-66.0); PLATELET COUNT, AUTOMATED 216 10^3/uL (150-450); RED BLOOD COUNT 4.53 10^6/uL (4.00-5.40); WHITE BLOOD COUNT 9.1 10^3/uL (4.0-10.0)
[2023-01-17] MEDS ORDERED: ISOVUE-370 76% 100ML VIAL As Ordered ONE (14:30)
[2023-01-17 14:39] LABS: INR 0.91; PROTHROMBIN TIME 12.5 SECONDS (12.5-14.5)
[2023-01-17 14:40] LABS: PARTIAL THROMBOPLASTIN TIME 26.9 SECONDS (24.8-34.2)
[2023-01-17 15:02] LABS: BLOOD UREA NITROGEN 10 MG/DL (9-23); CALCIUM LEVEL 9.6 MG/DL (8.5-10.1); CARBON DIOXIDE LEVEL 27 MMOL/L (20-31); CHLORIDE LEVEL 104 MMOL/L (98-107); CK-MB VALUE MASS < 1.0 NG/ML (<3.6); CREATININE FOR GFR 0.69 MG/DL (0.55-1.30); GLOMERULAR FILTRATION RATE > 60.0 (>58); GLUCOSE, FASTING 86 MG/DL (60-100); SODIUM LEVEL 138 MMOL/L (136-145)
[2023-01-17 15:06] LABS: RSV AMPLIFICATION NEGATIVE (NEGATIVE)
[2023-01-17 15:06] LABS: CPK CREATINE PHOSPHOKINASE 46 U/L (34-145); MB/CK RELATIVE INDEX 2.17 (< OR =4)
[2023-01-17] MEDS ORDERED: CYANOCOBALAMIN 1,000MCG/ML 1ML VIAL IM ONE (16:45)
[2023-01-17] MEDS ORDERED: CVS2500C PO (16:46)
[2023-01-17] MEDS ORDERED: MECL1TAB31 PO (16:47)
[2023-01-17 17:30] VITALS: BP 142/74; O2SAT 97
== END 2023-01-17 17:47 | disposition home or self-care (01) ==
LOC: M ED 12:50
DX: D51.9 Vitamin B12 deficiency anemia, unspecified (principal); I10 Essential (primary) hypertension; G43.909 Migraine, unspecified, not intractable, without status migrainosus; M54.9 Dorsalgia, unspecified; Q07.00 Arnold-Chiari syndrome without spina bifida or hydrocephalus; Z79.899 Other long term (current) drug therapy
CPT/HCPCS: 36415; 70450; 70496; 70498; 71045; 80047; 80048; 82550; 82553; 84484; 85025; 85610; 85730; 87631; 93005; 93041; 94760; 99285; J3420; Q9967

== ENCOUNTER → 2023-03-10 | Outpatient (CLI) | payer MEDICARE, MEDICAID ==
[~2023-03-10] MED LIST changes: +CVS2500C PO; +MECL1TAB31 PO
== END ==
LOC: M PAIN 14:00
PROVIDERS: ATTEND Nurse Practitioner Family
DX: M79.12 Myalgia of auxiliary muscles, head and neck (principal); G89.29 Other chronic pain; M79.18 Myalgia, other site; G43.909 Migraine, unspecified, not intractable, without status migrainosus; F41.9 Anxiety disorder, unspecified; M54.2 Cervicalgia; M72.2 Plantar fascial fibromatosis; J45.909 Unspecified asthma, uncomplicated; Z79.899 Other long term (current) drug therapy

== ENCOUNTER → 2023-03-15 | Outpatient (CLI) | payer MEDICARE, MEDICAID ==
[~2023-03-15] MED LIST changes: +BOTOX THERAPEUTIC 100 UNIT VIAL IM ONE
== END ==
LOC: M PAIN 08:00
PROVIDERS: ATTEND Anesthesiology
DX: G43.009 Migraine without aura, not intractable, without status migrainosus (principal); M72.2 Plantar fascial fibromatosis; J45.909 Unspecified asthma, uncomplicated; F41.9 Anxiety disorder, unspecified; M54.2 Cervicalgia; G89.29 Other chronic pain; Z79.899 Other long term (current) drug therapy
CPT/HCPCS: 64615; J0585

== ENCOUNTER → 2023-04-15 | Outpatient (REF) | payer MEDICARE, MEDICAID ==
[~2023-04-15] MED LIST changes: -BOTOX THERAPEUTIC 100 UNIT VIAL IM ONE; +MECL-209 PO; -MECL1TAB31 PO
[2023-04-15 17:42] LABS: THYROID STIMULATING HORMONE 2.391 uIU/ML (0.55-4.78)
[2023-04-15 17:43] LABS: CHOLESTEROL RISK RATIO 3.71 (<5); HDL CHOLESTEROL 46.6 MG/DL (>40); LDL CHOLESTEROL 98.6 MG/DL (<100); NON-HDL-C 126.4 MG/DL
== END ==
LOC: M LAB REF 16:23
PROVIDERS: ATTEND Pediatrics
DX: E53.8 Deficiency of other specified B group vitamins (principal); E66.9 Obesity, unspecified; Z79.899 Other long term (current) drug therapy

== ENCOUNTER → 2023-06-20 | Outpatient (CLI) | payer MEDICARE, MEDICAID | LOC: M PAIN 15:30 | PROVIDERS: ATTEND Nurse Practitioner Family | DX: G43.009 Migraine without aura, not intractable, without status migrainosus (principal); G89.29 Other chronic pain; F41.9 Anxiety disorder, unspecified; M54.2 Cervicalgia; M72.2 Plantar fascial fibromatosis; J45.909 Unspecified asthma, uncomplicated; Z79.899 Other long term (current) drug therapy ==

== ENCOUNTER → 2023-07-14 | Outpatient (CLI) | payer MEDICARE, MEDICAID ==
[~2023-07-14] MED LIST changes: +BOTOX THERAPEUTIC 100 UNIT VIAL IM ONE; +TOPI-21; -TOPI-254
== END ==
LOC: M PAIN 12:45
PROVIDERS: ATTEND Anesthesiology
DX: G43.009 Migraine without aura, not intractable, without status migrainosus (principal); F41.9 Anxiety disorder, unspecified; G89.29 Other chronic pain; M54.2 Cervicalgia; M72.2 Plantar fascial fibromatosis; J45.909 Unspecified asthma, uncomplicated; Z86.16 Personal history of COVID-19; Z79.899 Other long term (current) drug therapy
CPT/HCPCS: 64615; J0585

== ENCOUNTER → 2023-07-26 | Outpatient (CLI) | payer MEDICARE, MEDICAID ==
[~2023-07-26] MED LIST changes: -BOTOX THERAPEUTIC 100 UNIT VIAL IM ONE
== END ==
LOC: M PAIN 15:00
PROVIDERS: ATTEND Nurse Practitioner Family
DX: M50.10 Cervical disc disorder with radiculopathy, unspecified cervical region (principal); Z79.891 Long term (current) use of opiate analgesic; Z79.899 Other long term (current) drug therapy

== ENCOUNTER → 2023-08-26 | Outpatient (CLI) | payer MEDICARE, MEDICAID | LOC: M PAIN 09:30 | PROVIDERS: ATTEND Anesthesiology | DX: G43.009 Migraine without aura, not intractable, without status migrainosus (principal); J45.909 Unspecified asthma, uncomplicated; M54.2 Cervicalgia; G89.29 Other chronic pain; Z79.899 Other long term (current) drug therapy ==

== ENCOUNTER → 2023-09-08 | Outpatient (CLI) | payer MEDICARE, MEDICAID | LOC: M PLAIMG 15:10 | PROVIDERS: ATTEND Pediatrics | DX: R93.0 Abnormal findings on diagnostic imaging of skull and head, not elsewhere classified (principal) ==

== ENCOUNTER 2023-09-11 12:09 | Emergency (ER) | payer MEDICARE, MEDICAID ==
[~2023-09-11] VITALS: Ht 162.6 cm; Wt 83.2 kg
[2023-09-11] MEDS ORDERED: TOPI25TA10 (12:27)
[2023-09-11] MEDS ORDERED: CITA20TA7 (12:27)
[2023-09-11] MEDS ORDERED: GABA-284 (12:27)
[2023-09-11] MEDS ORDERED: ONDA4TAB6 (12:27)
[2023-09-11] MEDS: diphenhydrAMINE 50MG/ML VIAL IV ONE (15:41)
[2023-09-11] MEDS: METOCLOPRAMIDE INJ 10MG/2ML VIAL IV ONE (15:41)
[2023-09-11] MEDS: NS 1,000 ML IV ONE (15:42)
[2023-09-11] MEDS: KETOROLAC 30 MG/ML 1ML VIAL IM ONE (15:42)
[2023-09-11 15:44] LABS: HEMATOCRIT 43.8 % (36.0-47.0); HEMOGLOBIN 14.9 g/dl (12.0-15.5); MEAN CORPUSCULAR HEMOGLOBIN 29.8 pg (27.0-33.0); MEAN CORPUSCULAR VOLUME 87.6 fl (80.0-96.0); PLATELET COUNT, AUTOMATED 257 10^3/uL (150-450); WHITE BLOOD COUNT 7.5 10^3/uL (4.0-10.0)
[2023-09-11] MEDS: KETOROLAC 30 MG/ML 1ML VIAL IV ONE (15:49)
[2023-09-11 15:56] LABS: INR 0.98; PROTHROMBIN TIME 12.7 SECONDS (12.5-14.5)
[2023-09-11 15:57] LABS: PARTIAL THROMBOPLASTIN TIME 28.7 SECONDS (24.8-34.2)
[2023-09-11 15:59] LABS: D-DIMER QUANT 0.65 ug/mL (<0.5)
[2023-09-11] MEDS ORDERED: KETO10TAB PO (16:46)
[2023-09-11 17:02] VITALS: BP 121/68; TEMP 97.6; O2SAT 98
== END 2023-09-11 17:05 | disposition home or self-care (01) ==
LOC: M ED 12:09
DX: G43.909 Migraine, unspecified, not intractable, without status migrainosus (principal); Z79.899 Other long term (current) drug therapy
CPT/HCPCS: 70450; 80047; 83735; 85027; 85379; 85610; 85730; 96361; 96372; 96374; 96375; 99283; J1200; J1885; J2765

== ENCOUNTER → 2023-09-12 | Outpatient (CLI) | payer MEDICARE, MEDICAID ==
[~2023-09-12] MED LIST changes: +CITA20TA7; +GABA-284; +KETO10TAB PO; +ONDA4TAB6; +TOPI25TA10
== END ==
LOC: M PLAIMG 14:53
PROVIDERS: ATTEND Nurse Practitioner Family
DX: M50.10 Cervical disc disorder with radiculopathy, unspecified cervical region (principal)

== ENCOUNTER → 2023-09-19 | Outpatient (CLI) | payer MEDICARE, MEDICAID | LOC: M PAIN 14:00 | PROVIDERS: ATTEND Nurse Practitioner Family | DX: M50.10 Cervical disc disorder with radiculopathy, unspecified cervical region (principal); M47.812 Spondylosis without myelopathy or radiculopathy, cervical region; G89.29 Other chronic pain; G43.909 Migraine, unspecified, not intractable, without status migrainosus; F41.9 Anxiety disorder, unspecified; J45.909 Unspecified asthma, uncomplicated; M72.2 Plantar fascial fibromatosis; Z79.899 Other long term (current) drug therapy ==

== ENCOUNTER → 2023-09-28 | Outpatient (CLI) | payer MEDICARE, MEDICAID | LOC: M PAIN 15:30 | PROVIDERS: ATTEND Anesthesiology | DX: M47.812 Spondylosis without myelopathy or radiculopathy, cervical region (principal); G43.909 Migraine, unspecified, not intractable, without status migrainosus; F41.9 Anxiety disorder, unspecified; G89.29 Other chronic pain; M54.2 Cervicalgia; M72.2 Plantar fascial fibromatosis; J45.909 Unspecified asthma, uncomplicated; Z79.899 Other long term (current) drug therapy | CPT/HCPCS: 76000; G0463 ==

== ENCOUNTER → 2023-10-13 | Outpatient (CLI) | payer MEDICARE, MEDICAID | LOC: M PLAIMG 14:59 | PROVIDERS: ATTEND Neurological Surgery | DX: I67.1 Cerebral aneurysm, nonruptured (principal) ==

== ENCOUNTER → 2023-10-20 | Outpatient (CLI) | payer MEDICARE, MEDICAID ==
[~2023-10-20] MED LIST changes: +BOTOX THERAPEUTIC 100 UNIT VIAL IM ONE; +ONDANSETRON 4MG ORAL DISINTEGRATING TAB As Ordered ONE
== END ==
LOC: M PAIN 10:00
PROVIDERS: ATTEND Anesthesiology
DX: G43.009 Migraine without aura, not intractable, without status migrainosus (principal); J45.909 Unspecified asthma, uncomplicated; F41.9 Anxiety disorder, unspecified; M72.2 Plantar fascial fibromatosis; Z79.899 Other long term (current) drug therapy
CPT/HCPCS: 64615; J0585

== ENCOUNTER 2023-10-26 15:28 | Emergency (ER) | payer MEDICARE, MEDICAID ==
[~2023-10-26] VITALS: Ht 162.6 cm; Wt 79.9 kg
[~2023-10-26 15:28] MED LIST changes: -BOTOX THERAPEUTIC 100 UNIT VIAL IM ONE; -ONDANSETRON 4MG ORAL DISINTEGRATING TAB As Ordered ONE
[2023-10-26 16:51] LABS: BASO % 0.4 % (0.0-1.0); EOS # 0.1 10^3/uL (0.0-0.5); EOS % 1.4 % (0.0-3.0); HEMATOCRIT 41.4 % (36.0-47.0); HEMOGLOBIN 14.1 g/dl (12.0-15.5); LYMPH # 2.4 10^3/uL (1.5-5.0); LYMPH % 33.1 % (24.0-44.0); MEAN CORPUSCULAR HEMOGLOBIN 29.9 pg (27.0-33.0); MEAN CORPUSCULAR HGB CONC 34.1 g/dl (32.0-36.5); MEAN CORPUSCULAR VOLUME 87.7 fl (80.0-96.0); MONO # 0.5 10^3/uL (0.0-0.8); MONO % 7.4 % (2.0-8.0); NEUTROPHILS # 4.2 10^3/uL (1.5-8.5); NEUTROPHILS % 57.3 % (36.0-66.0); PLATELET COUNT, AUTOMATED 236 10^3/uL (150-450); RED BLOOD COUNT 4.72 10^6/uL (4.00-5.40); WHITE BLOOD COUNT 7.3 10^3/uL (4.0-10.0)
[2023-10-26 17:13] LABS: LIPASE 30 U/L (12-53)
[2023-10-26 17:15] LABS: ALBUMIN 4.1 G/DL (3.2-5.2); ALKALINE PHOSPHATASE 66 U/L (46-116); ALT/SGPT 19 U/L (7.0-40); AST/SGOT 13 U/L (<34); BILIRUBIN,DIRECT 0.3 MG/DL (<0.4); BILIRUBIN,TOTAL 0.8 MG/DL (0.3-1.2); BLOOD UREA NITROGEN 10 MG/DL (9-23); CALCIUM LEVEL 9.5 MG/DL (8.5-10.1); CARBON DIOXIDE LEVEL 26 MMOL/L (20-31); CHLORIDE LEVEL 107 MMOL/L (98-107); GLOMERULAR FILTRATION RATE > 60.0 (>58); GLUCOSE, FASTING 94 MG/DL (60-100); POTASSIUM SERUM 3.8 MMOL/L (3.5-5.1); SODIUM LEVEL 142 MMOL/L (136-145); TOTAL PROTEIN 7.3 G/DL (5.7-8.2)
[2023-10-26] MEDS ORDERED: ISOVUE-370 76% 100ML VIAL As Ordered ONE (19:47)
[2023-10-26] MEDS: HYOSCYAMINE SULFATE 0.125 MG SUBL TABLET SL ONE (20:50)
[2023-10-26] MEDS: MAALOX 30 ML SUSP *UDC PO ONE (20:50)
[2023-10-26] MEDS: PANTOPRAZOLE 40MG VIAL IV ONE (20:50)
[2023-10-26] MEDS ORDERED: PROTPAK PO (21:05)
[2023-10-26] MEDS ORDERED: EFFE75CA2 PO (21:12)
[2023-10-26 21:15] VITALS: BP 106/65; TEMP 98.1; O2SAT 98
== END 2023-10-26 21:21 | disposition home or self-care (01) ==
LOC: M ED 15:28
DX: R19.7 Diarrhea, unspecified (principal); R10.13 Epigastric pain; I10 Essential (primary) hypertension; Q07.00 Arnold-Chiari syndrome without spina bifida or hydrocephalus; G43.909 Migraine, unspecified, not intractable, without status migrainosus; Z79.899 Other long term (current) drug therapy
CPT/HCPCS: 74177; 80048; 80076; 83690; 85025; 96374; 99284; C9113; Q9967

== ENCOUNTER 2023-12-02 15:14 | Emergency (ER) | payer MEDICARE, MEDICAID ==
[~2023-12-02] VITALS: Ht 162.6 cm; Wt 79.5 kg
[~2023-12-02 15:14] MED LIST changes: +EFFE75CA2 PO; +PROTPAK PO
[2023-12-02] MEDS ORDERED: ISOVUE-370 76% 100ML VIAL As Ordered ONE (15:22)
[2023-12-02 15:59] LABS: BASO % 0.6 % (0.0-1.0); EOS # 0.1 10^3/uL (0.0-0.5); EOS % 2.1 % (0.0-3.0); HEMOGLOBIN 13.8 g/dl (12.0-15.5); LYMPH # 2.8 10^3/uL (1.5-5.0); LYMPH % 54.1 % (24.0-44.0); MEAN CORPUSCULAR HEMOGLOBIN 29.2 pg (27.0-33.0); MEAN CORPUSCULAR HGB CONC 33.7 g/dl (32.0-36.5); MEAN CORPUSCULAR VOLUME 86.9 fl (80.0-96.0); MONO # 0.4 10^3/uL (0.0-0.8); MONO % 7.2 % (2.0-8.0); NEUTROPHILS # 1.8 10^3/uL (1.5-8.5); NEUTROPHILS % 35.8 % (36.0-66.0); PLATELET COUNT, AUTOMATED 234 10^3/uL (150-450); RED BLOOD COUNT 4.72 10^6/uL (4.00-5.40); WHITE BLOOD COUNT 5.1 10^3/uL (4.0-10.0)
[2023-12-02 16:10] VITALS: BP 166/93; O2SAT 100
[2023-12-02 16:11] LABS: INR 0.98; PARTIAL THROMBOPLASTIN TIME 26.3 SECONDS (24.8-34.2); PROTHROMBIN TIME 12.7 SECONDS (12.5-14.5)
[2023-12-02 16:13] LABS: ERYTHROCYTE SEDIMENTATION RATE 17 mm/hr (0-20)
[2023-12-02] MEDS: KETOROLAC 30 MG/ML 1ML VIAL IV ONE (16:14)
[2023-12-02] MEDS: ASPIRIN 81MG CHEW TABLET PO ONE (16:14)
[2023-12-02 16:20] LABS: CK-MB VALUE MASS < 1.0 NG/ML (<3.6)
[2023-12-02 16:38] LABS: HCG, SERUM QUALITATIVE NEGATIVE (NEGATIVE)
[2023-12-02 16:44] LABS: ALBUMIN 3.9 G/DL (3.2-5.2); ALKALINE PHOSPHATASE 67 U/L (46-116); ALT/SGPT 24 U/L (7.0-40); AST/SGOT 15 U/L (<34); BILIRUBIN,DIRECT 0.2 MG/DL (<0.4); BILIRUBIN,TOTAL 0.6 MG/DL (0.3-1.2); BLOOD UREA NITROGEN 10 MG/DL (9-23); CARBON DIOXIDE LEVEL 25 MMOL/L (20-31); CHLORIDE LEVEL 109 MMOL/L (98-107); CPK CREATINE PHOSPHOKINASE 78 U/L (34-145); GLOMERULAR FILTRATION RATE > 60.0 (>58); GLUCOSE, FASTING 103 MG/DL (60-100); MB/CK RELATIVE INDEX 1.28 (< OR =4); POTASSIUM SERUM 3.8 MMOL/L (3.5-5.1); SODIUM LEVEL 142 MMOL/L (136-145); TOTAL PROTEIN 7.1 G/DL (5.7-8.2)
[2023-12-02] MEDS: NS 1,000 ML IV SCH (17:56)
[2023-12-02 21:46] VITALS: BP 129/68; TEMP 98
[2023-12-02] MEDS ORDERED: FIOR1CAP PO (21:50)
[2023-12-02 22:00] VITALS: O2SAT 98
[2023-12-02] MEDS: FIORICET TAB PO ONE (22:00)
== END 2023-12-02 22:04 | disposition home or self-care (01) ==
LOC: M ED 15:14
DX: G43.809 Other migraine, not intractable, without status migrainosus (principal); Z86.79 Personal history of other diseases of the circulatory system; Z79.899 Other long term (current) drug therapy
CPT/HCPCS: 70450; 70496; 70498; 70551; 71045; 80047; 80048; 80076; 82550; 82553; 84484; 84703; 85025; 85610; 85652; 85730; 86850; 86900; 86901; 93005; 93041; 94760; 96361; 96374; 99285; J1885; Q9967

== ENCOUNTER → 2023-12-05 | Outpatient (CLI) | payer MEDICARE, MEDICAID ==
[~2023-12-05] MED LIST changes: +FIOR1CAP PO
== END ==
LOC: M PAIN 14:45
PROVIDERS: ATTEND Nurse Practitioner Family
DX: G43.709 Chronic migraine without aura, not intractable, without status migrainosus (principal); F41.9 Anxiety disorder, unspecified; J45.909 Unspecified asthma, uncomplicated; M54.2 Cervicalgia; G89.29 Other chronic pain; M72.2 Plantar fascial fibromatosis; Z79.899 Other long term (current) drug therapy

== ENCOUNTER 2023-12-30 12:19 | Day surgery (SDC) | payer MEDICARE, MEDICAID ==
[~2023-12-30] VITALS: Ht 162.6 cm; Wt 76.6 kg
[~2023-12-30 12:19] MED LIST changes: -GABA-284; +GABA-284 PO; +MIGR4SPR; +NS 1,000 ML IV ONE; +ONDA-282 PO; -ONDA4TAB6; +PROA1AER2 INH; -TOPI25TA10; +TOPI25TA10 PO; +steroid inhaler INH
[2023-12-30] MEDS ORDERED: propofoL 500 MG/50 ML VIAL As Ordered ONE (12:30)
[2023-12-30] MEDS ORDERED: fentaNYL 100 MCG/2 ML INJECTION As Ordered ONE (12:31)
[2023-12-30] MEDS ORDERED: LIDOCAINE 2% 100MG/5ML SDV (FOR ANES.) As Ordered ONE (12:31)
[2023-12-30 14:31] VITALS: TEMP 96.9
[2023-12-30 14:58] VITALS: BP 116/80; O2SAT 100
== END 2023-12-30 15:20 | disposition home or self-care (01) ==
LOC: M OPP 12:19
PROVIDERS: ATTEND Surgery
DX: D12.6 Benign neoplasm of colon, unspecified (principal); K62.5 Hemorrhage of anus and rectum; R10.13 Epigastric pain; K29.50 Unspecified chronic gastritis without bleeding; K25.3 Acute gastric ulcer without hemorrhage or perforation; Z87.891 Personal history of nicotine dependence; Z88.8 Allergy status to other drugs, medicaments and biological substances
CPT/HCPCS: 43239; 45380; 88305; J3010

== ENCOUNTER → 2024-01-19 | Outpatient (CLI) | payer MEDICARE, MEDICAID ==
[~2024-01-19] MED LIST changes: -NS 1,000 ML IV ONE
== END ==
LOC: M PAIN 16:30
PROVIDERS: ATTEND Nurse Practitioner Family
DX: M47.812 Spondylosis without myelopathy or radiculopathy, cervical region (principal); G43.909 Migraine, unspecified, not intractable, without status migrainosus; J45.909 Unspecified asthma, uncomplicated; Q07.00 Arnold-Chiari syndrome without spina bifida or hydrocephalus; Z79.1 Long term (current) use of non-steroidal anti-inflammatories (NSAID); Z79.51 Long term (current) use of inhaled steroids; Z79.891 Long term (current) use of opiate analgesic; Z79.899 Other long term (current) drug therapy; Z88.8 Allergy status to other drugs, medicaments and biological substances

== ENCOUNTER → 2024-02-07 | Outpatient (CLI) | payer MEDICARE, MEDICAID ==
[~2024-02-07] MED LIST changes: +BOTOX THERAPEUTIC 100 UNIT VIAL IM ONE
== END ==
LOC: M PAIN 14:00
PROVIDERS: ATTEND Anesthesiology
DX: G43.709 Chronic migraine without aura, not intractable, without status migrainosus (principal); F41.9 Anxiety disorder, unspecified; G89.29 Other chronic pain; M54.2 Cervicalgia; J45.909 Unspecified asthma, uncomplicated; Z79.899 Other long term (current) drug therapy
CPT/HCPCS: 64615; J0585

== ENCOUNTER 2024-02-14 13:26 | Emergency (ER) | payer MEDICARE, MEDICAID ==
[~2024-02-14] VITALS: Ht 162.6 cm; Wt 78.2 kg
[~2024-02-14 13:26] MED LIST changes: -BOTOX THERAPEUTIC 100 UNIT VIAL IM ONE
[2024-02-14 16:17] LABS: Trichomonas vaginalis (AMP) NOT DETECTED (NEGATIVE)
[2024-02-14] MEDS: KETOROLAC 30 MG/ML 1ML VIAL IV ONE (16:27)
[2024-02-14] MEDS: ONDANSETRON 4MG 2ML VIAL IV ONE (16:27)
[2024-02-14 16:40] LABS: GC DNA AMPLIFICATION NEGATIVE (NEGATIVE)
[2024-02-14 16:47] LABS: BASO % 0.5 % (0.0-1.0); EOS # 0.1 10^3/uL (0.0-0.5); EOS % 1.9 % (0.0-3.0); HEMATOCRIT 42.2 % (36.0-47.0); HEMOGLOBIN 13.8 g/dl (12.0-15.5); LYMPH # 2.5 10^3/uL (1.5-5.0); LYMPH % 39.3 % (24.0-44.0); MEAN CORPUSCULAR HEMOGLOBIN 29.2 pg (27.0-33.0); MEAN CORPUSCULAR HGB CONC 32.7 g/dl (32.0-36.5); MEAN CORPUSCULAR VOLUME 89.2 fl (80.0-96.0); MONO # 0.4 10^3/uL (0.0-0.8); MONO % 6.9 % (2.0-8.0); NEUTROPHILS # 3.3 10^3/uL (1.5-8.5); NEUTROPHILS % 51.1 % (36.0-66.0); PLATELET COUNT, AUTOMATED 211 10^3/uL (150-450); RED BLOOD COUNT 4.73 10^6/uL (4.00-5.40); WHITE BLOOD COUNT 6.4 10^3/uL (4.0-10.0)
[2024-02-14] MEDS ORDERED: ISOVUE-370 76% 100ML VIAL As Ordered ONE (16:56)
[2024-02-14 17:08] LABS: BILIRUBIN,DIRECT 0.2 MG/DL (<0.4); BILIRUBIN,TOTAL 0.7 MG/DL (0.3-1.2); TOTAL PROTEIN 7.3 G/DL (5.7-8.2)
[2024-02-14] MEDS ORDERED: PRED20TA PO (19:01)
[2024-02-14 19:10] VITALS: BP 131/73; TEMP 97; O2SAT 99
== END 2024-02-14 19:11 | disposition home or self-care (01) ==
LOC: M ED 13:26
DX: M54.41 Lumbago with sciatica, right side (principal); G43.909 Migraine, unspecified, not intractable, without status migrainosus; J45.909 Unspecified asthma, uncomplicated; Z88.8 Allergy status to other drugs, medicaments and biological substances
CPT/HCPCS: 74177; 76830; 76856; 80047; 80076; 81001; 83690; 85025; 87661; 87810; 87850; 93976; 96374; 96375; 99284; J1885; J2405; Q9967

== ENCOUNTER → 2024-02-27 | Outpatient (REF) | payer MEDICARE, MEDICAID ==
[2024-02-27 18:24] LABS: BASO % 0.3 % (0.0-1.0); EOS # 0.1 10^3/uL (0.0-0.5); EOS % 2.1 % (0.0-3.0); HEMATOCRIT 39.8 % (36.0-47.0); HEMOGLOBIN 13.2 g/dl (12.0-15.5); LYMPH # 2.3 10^3/uL (1.5-5.0); LYMPH % 38.9 % (24.0-44.0); MEAN CORPUSCULAR HEMOGLOBIN 29.7 pg (27.0-33.0); MEAN CORPUSCULAR HGB CONC 33.2 g/dl (32.0-36.5); MEAN CORPUSCULAR VOLUME 89.6 fl (80.0-96.0); MONO # 0.4 10^3/uL (0.0-0.8); MONO % 6.9 % (2.0-8.0); NEUTROPHILS % 51.5 % (36.0-66.0); PLATELET COUNT, AUTOMATED 285 10^3/uL (150-450); RED BLOOD COUNT 4.44 10^6/uL (4.00-5.40); WHITE BLOOD COUNT 5.8 10^3/uL (4.0-10.0)
[2024-02-27 18:37] LABS: ERYTHROCYTE SEDIMENTATION RATE 16 mm/hr (0-20)
== END ==
LOC: M LAB REF 16:14
PROVIDERS: ATTEND Pediatrics
DX: R10.31 Right lower quadrant pain (principal); R10.2 Pelvic and perineal pain

== ENCOUNTER → 2024-03-09 | Outpatient (CLI) | payer MEDICARE, MEDICAID | LOC: M RAD 13:45 | PROVIDERS: ATTEND Pediatrics | DX: K41.90 Unilateral femoral hernia, without obstruction or gangrene, not specified as recurrent (principal) ==

== ENCOUNTER → 2024-03-20 | Outpatient (CLI) | payer MEDICARE, MEDICAID | LOC: M WHC 15:07 | PROVIDERS: ATTEND Pediatrics | DX: Z12.31 Encounter for screening mammogram for malignant neoplasm of breast (principal); R92.323 Mammographic fibroglandular density, bilateral breasts ==

== ENCOUNTER → 2024-03-30 | Outpatient (CLI) | payer MEDICARE, MEDICAID ==
[~2024-03-30] MED LIST changes: +GABA-1490; +GABA-1635 PO; -GABA600T4; -GABA800T4 PO
== END ==
LOC: M PAIN 16:00
PROVIDERS: ATTEND Nurse Practitioner Family
DX: G43.709 Chronic migraine without aura, not intractable, without status migrainosus (principal); F41.9 Anxiety disorder, unspecified; M54.2 Cervicalgia; G89.29 Other chronic pain; M72.2 Plantar fascial fibromatosis; J45.909 Unspecified asthma, uncomplicated; Z79.899 Other long term (current) drug therapy

== ENCOUNTER → 2024-05-29 | Outpatient (CLI) | payer MEDICARE, MEDICAID ==
[~2024-05-29] MED LIST changes: +BOTOX THERAPEUTIC 100 UNIT VIAL IM ONE
== END ==
LOC: M PAIN 16:00
PROVIDERS: ATTEND Anesthesiology
DX: G43.709 Chronic migraine without aura, not intractable, without status migrainosus (principal); F41.9 Anxiety disorder, unspecified; M54.2 Cervicalgia; G89.29 Other chronic pain; M72.2 Plantar fascial fibromatosis; J45.909 Unspecified asthma, uncomplicated; Z86.16 Personal history of COVID-19
CPT/HCPCS: 64615; J0585

== ENCOUNTER 2025-04-29 18:07 | Emergency (ER) | payer MEDICARE, MEDICAID ==
[~2025-04-29] VITALS: Ht 162.6 cm; Wt 82.8 kg
[~2025-04-29 18:07] MED LIST changes: -IBUP1TAB7 PO; -KETO-204 PO
[2025-04-29] MEDS ORDERED: IBUP1TAB7 PO (18:24)
[2025-04-29 20:38] LABS: BASO # 0.0 10^3/uL (0.0-0.2); BASO % 0.3 % (0.0-1.0); EOS # 0.1 10^3/uL (0.0-0.5); EOS % 1.2 % (0.0-3.0); LYMPH # 3.2 10^3/uL (1.5-5.0); LYMPH % 31.8 % (24.0-44.0); MONO # 0.7 10^3/uL (0.0-0.8); MONO % 7.0 % (2.0-8.0); NEUTROPHILS # 6.1 10^3/uL (1.5-8.5); NEUTROPHILS % 59.4 % (36.0-66.0); PLATELET COUNT, AUTOMATED 260 10^3/uL (150-450)
[2025-04-29] MEDS: KETOROLAC 30 MG/ML 1 ML VIAL IV ONE (20:39)
[2025-04-29] MEDS: ONDANSETRON 4MG 2ML VIAL IV ONE (20:39)
[2025-04-29] MEDS: NS (Normal Saline) 0.9% 1,000 ML IV ONE (20:39)
[2025-04-29 20:45] LABS: KETONE, URINE AUTO RFX TRACE mg/dL (NEGATIVE); LEUKOCYTE ESTERASE UR AUTO RFX NEGATIVE (NEGATIVE); MUCUS, URINE RFX SMALL (NEGATIVE); NITRITE, URINE AUTO RFX NEGATIVE (NEGATIVE); RBC, URINE AUTO RFX 1 /HPF (0-3); SQUAM EPITHELIAL CELL UR AURFX 4 /HPF (0-6); WBC, URINE AUTO RFX 1 /HPF (0-3)
[2025-04-29] MEDS ORDERED: ISOVUE-370 76% 100 ML VIAL As Ordered ONE (21:02)
[2025-04-29 21:14] LABS: ALT/SGPT 22.0 U/L (7.0-40); AST/SGOT 22.0 U/L (<34)
[2025-04-29] MEDS ORDERED: KETO-204 PO (21:55)
[2025-04-29 22:10] VITALS: BP 128/78; TEMP 96.5; O2SAT 98
== END 2025-04-29 22:15 | disposition home or self-care (01) ==
LOC: M ED 18:07
DX: N83.291 Other ovarian cyst, right side (principal); Z79.899 Other long term (current) drug therapy; Z88.8 Allergy status to other drugs, medicaments and biological substances
CPT/HCPCS: 74177; 80047; 80076; 81001; 85025; 87486; 87581; 87633; 87798; 96374; 96375; 99284; J1885; J2405; Q9967

== ENCOUNTER → 2025-04-29 | Outpatient (REF) | payer MEDICARE ==
[~2025-04-29] MED LIST changes: -ADV250INH; +ADVA1AER9; -BOTOX THERAPEUTIC 100 UNIT VIAL IM ONE; +IBUP1TAB7 PO; +KETO-204 PO; +TOPI-256 PO; -TOPI25TA10 PO
[2025-04-29 21:55] LABS: APPEARANCE, URINE CLEAR (CLEAR); BACTERIA, URINE AUTO 1+ (NEGATIVE); BILIRUBIN, URINE AUTO NEGATIVE (NEGATIVE); BLOOD, URINE BLOOD NEGATIVE (NEGATIVE); GLUCOSE, URINE (UA) AUTO NEGATIVE (NEGATIVE); KETONE, URINE AUTO NEGATIVE (NEGATIVE); LEUKOCYTE ESTERASE, URINE AUTO NEGATIVE (NEGATIVE); NITRITE, URINE AUTO NEGATIVE (NEGATIVE); PROTEIN, URINE AUTO NEGATIVE (NEGATIVE); RBC, URINE AUTO 0 /HPF (0-3); SPECIFIC GRAVITY URINE AUTO 1.009 (1.002-1.035); SQUAMOUS EPITHELIAL CELL UR AU 3 /HPF (0-6); UROBILINOGEN, URINE AUTO 0.2 mg/dL (0.0-2.0); WBC, URINE AUTO 0 /HPF (0-3)
== END ==
LOC: M LAB REF 21:28
PROVIDERS: ATTEND Physician Assistant Medical
DX: N39.0 Urinary tract infection, site not specified (principal); B34.9 Viral infection, unspecified